=== PATIENT | female | born 1955 | race Caucasian/White ===

== ENCOUNTER → 2018-09-19 | Outpatient (CLI) | payer MEDICARE ==
--- NOTE | 2018-09-20 12:03 | MM ---
Reason for exam: screening (asymptomatic). Last mammogram was performed 2 years and 6 months ago. History: Patient history of other cancer. Benign excisional biopsy of the left breast, 1993. Benign excisional biopsy of the left breast, 1989. Physical Findings: A clinical breast exam by your physician is recommended on an annual basis and results should be correlated with mammographic findings. MG 3D Screening Mammo W/Cad Bilateral CC and MLO view(s) were taken. Prior study comparison: March 30, 2016, bilateral MG 3d diag mammo w/cad PATRICIA. November 30, 2012, mammogram, performed at [facility]. There are scattered fibroglandular densities. There are benign appearing round linear calcifications bilaterally. There is chronic nodularity bilaterally. There is no discrete abnormality. ASSESSMENT: Incomplete: need additional imaging evaluation, BI-RAD 0 RECOMMENDATION: Ultrasound of both breasts. (targeted any non-skin lumps palpated by patient) [facility] will attempt to contact patient to return for ultrasound.
== END | disposition home or self-care (01) ==
LOC: RADMAMWWP 16:12
PROVIDERS: ATTEND Internal Medicine
DX: Z12.31 Encounter for screening mammogram for malignant neoplasm of breast (principal)
CPT/HCPCS: 77063; 77067

== ENCOUNTER → 2018-10-24 | Outpatient (CLI) | payer MEDICARE ==
--- NOTE | 2018-10-29 08:01 | USB ---
Reason for exam: additional evaluation requested from abnormal screening. History: Patient history of other cancer. Benign excisional biopsy of the left breast, 1993. Benign excisional biopsy of the left breast, 1989. Indicated problem(s): palpable abnormality in both breasts. Physical Findings: Nurse Summary: Multiple areas of palpable lesions felt, and BB's placed. US Breast Workup Limited PATRICIA Bilateral complete breast ultrasound includes all four quadrants, the retroareolar region and axilla. Finding demonstrates on the right breast all at the BB sites, a 0.7 x 0.8 x 0.3 cm oval solid hyperechoic lesion at 1 o'clock, a 1.2 x 1.0 x 0.4 cm oval solid hyperechoic lesion at 10 o'clock, a 1.2 x 1.0 x 0.6 cm oval solid hyperechoic lesion at 10 o'clock, and a 3.5 x 3.6 x 1.1 cm cluster oval solid hyperechoic lesion at 11 o'clock. On the left breast all at the BB sites, a 1.4 x 1.2 x 0.7 cm oval solid hyperechoic lesion at 12 o'clock, a 0.6 x 1.4 x 0.3 cm oval solid hyperechoic lesion at 9 o'clock and a 1.6 x 1.7 x 0.6 cm oval solid hyperechoic lesion at 10 o'clock. These results were verbally communicated with the patient and result sheet given to the patient on 10/24/18. ASSESSMENT: Benign, BI-RAD 2 RECOMMENDATION: Clinical management. Routine screening mammogram of both breasts in 1 year.
== END | disposition home or self-care (01) ==
LOC: RADUSWWP 15:40
PROVIDERS: ATTEND Internal Medicine
DX: R92.8 Other abnormal and inconclusive findings on diagnostic imaging of breast (principal)

== ENCOUNTER 2022-10-06 17:43 | Inpatient (IN) | payer MEDICARE ==
[2022-10-06 18:39] LABS: Basophils # (A) 0.1 k/uL (0-0.2); Basophils % (A) 1 %; Eosinophils # (A) 0.2 k/uL (0-0.7); Eosinophils % (A) 2 %; HCT 36.7 % (34.0-46.0); Hypochromasia Slight; Lymphocytes # (A) 1.1 k/uL (1.0-4.8); Lymphocytes % (A) 14 %; MCHC 32.9 g/dL (31.0-37.0); MCV 94.3 fL (80.0-100.0); Mean Platelet Volume 9.6; Monocytes # (A) 0.3 k/uL (0-1.0); Monocytes % (A) 4 %; Neutrophils # (A) 6.2 k/uL (1.3-7.7); Neutrophils % (A) 79 %; Platelet Count 150 k/uL (150-450); RBC 3.89 m/uL (3.80-5.40); RDW 14.1 % (11.5-15.5); WBC 7.8 k/uL (3.8-10.6)
[2022-10-06 18:47] LABS: ALT 17 U/L (4-34); AST 28 U/L (14-36); African American GFR (CKD) >90 (>60 ml/min/1.73 sqM); Albumin 3.8 g/dL (3.5-5.0); Alkaline Phosphatase 98 U/L (38-126); Anion Gap 6 mmol/L; Blood Urea Nitrogen 18 mg/dL (7-17); Calcium 9.3 mg/dL (8.4-10.2); Carbon Dioxide 33 mmol/L (22-30); Chloride 100 mmol/L (98-107); Glucose 265 mg/dL (74-99); Magnesium 1.3 mg/dL (1.6-2.3); Non-African American GFR(CKD) >90 (>60 ml/min/1.73 sqM); Potassium 5.3 mmol/L (3.5-5.1); Sodium 139 mmol/L (137-145); Total Bilirubin 0.3 mg/dL (0.2-1.3); Total Protein 7.3 g/dL (6.3-8.2)
[2022-10-06 19:17] LABS: Appearance,Urine Cloudy (Clear); Bacteria,Urine Moderate /hpf; Bilirubin,Urine Negative (Negative); Blood,Urine Negative (Negative); Color,Urine Light Yellow; Glucose,Urine (UA) 3+ (Negative); Ketones,Urine Negative (Negative); Leukocyte Esterase,Urine Negative (Negative); Mucus,Urine Rare /hpf; Nitrite,Urine Negative (Negative); PH, Urine 7.5 (5.0-8.0); Protein,Urine Negative (Negative); RBC,Urine 3 /hpf (0-5); Specific Gravity,Urine 1.013 (1.001-1.035); Squamous Epithelial Cell,Urine 4 /hpf (0-4); Urobilinogen,Urine <2.0 mg/dL (<2.0); WBC,Urine 5 /hpf (0-5)
--- NOTE | 2022-10-06 20:11 | XR ---
EXAMINATION TYPE: XR chest 2V DATE OF EXAM: 10/06/2022 COMPARISON: CTA chest 2016 HISTORY: Shortness of breath and chest pain. TECHNIQUE: Frontal and lateral views of the chest are obtained. FINDINGS: There is cardiomegaly with central vascular congestion. There is metallic stent graft in the aortic root now present. No pleural effusion or pneumothorax identified bilaterally The osseous s tructures are intact. IMPRESSION: Findings consistent with CHF exacerbation noted as detailed above.
[2022-10-06] MEDS ORDERED: FUROSEMIDE 10 MG/ML 4 ML VIAL IV STA (20:35)
[2022-10-06] MEDS ORDERED: NALOXONE 0.4 MG/ML 1 ML VIAL IV PRN (22:59)
--- NOTE | 2022-10-06 23:08 | ED ---
General Adult HPI - General Chief complaint: Arrhythmia/Palpitations Stated complaint: bradycardia Time Seen by Provider: 10/06/22 17:51 Source: patient Mode of arrival: EMS Limitations: no limitations - History of Present Illness Initial comments: This is a 67-year-old female who presents emergency department for an episode of low heart rate. The patient stated that she also had some shortness of breath associated with this and became nervous so she called EMS. The patient stated that she was recently in the hospital for carotid surgery as well as replacement of aortic valve. The patient stated this was done at an outside facility and has had issues ever since. The patient stated that this is the first time she experienced a low heart rate so she wanted evaluated in the emergency department. The patient denied any current symptoms including any weakness, lightheadedness or dizziness. The patient denied any nausea and vomiting. The patient was resting in bed comfortably without any acute distress. - Related Data Home Medications Medication Instructions Recorded Confirmed Levocetirizine Dihydrochloride 5 mg PO HS 05/21/15 10/06/22 [Xyzal] Aspirin [Adult Low Dose Aspirin EC] 81 mg PO DAILY 05/09/19 10/06/22 Chlorzoxazone [Parafon Forte DSC] 500 mg PO TID PRN 05/09/19 10/06/22 Furosemide [Lasix] 40 mg PO BID PRN 05/09/19 10/06/22 Lansoprazole 30 mg PO BID 05/09/19 10/06/22 Latanoprost [Xalatan 0.005%] 1 drop BOTH EYES HS 05/09/19 10/06/22 Simvastatin [Zocor] 40 mg PO DAILY 05/09/19 10/06/22 Clopidogrel [Plavix] 75 mg PO DAILY 10/06/22 10/06/22 Dicyclomine HCl 10 mg PO QID 10/06/22 10/06/22 Diphenoxylate HCl/Atropine 1 tab PO QID PRN 10/06/22 10/06/22 [Lomotil 2.5-0.025 mg Tablet] Estradiol Cream [Estrace Cream 1 gm VAGINAL MOWEFR 10/06/22 10/06/22 0.01%] HYDROcodone/APAP 10-325MG [[place] 1 tab PO Q6H PRN 10/06/22 10/06/22 10-325] Hydrocortisone Oint 1 applic TOPICAL BID PRN 10/06/22 10/06/22 [Hydrocortisone 2.5% Oint] Insulin Lispro Protamin/Lispro See Protocol SQ AC-TID 10/06/22 10/06/22 [humaLOG Mix 75-25 Kwikpen] Magnesium Oxide [Magox 400] 400 mg PO TID 10/06/22 10/06/22 Metoprolol Succinate (ER) [Toprol 25 mg PO BID 10/06/22 10/06/22 Xl] Multivitamins, Thera [Multivitamin 1 tab PO DAILY 10/06/22 10/06/22 (formulary)] Nystatin-Triamcinolone Oint 1 applic TOPICAL BID PRN 10/06/22 10/06/22 [Mycolog 100,000-0.1 Unit/gm-% Oint] Pioglitazone [Actos] 45 mg PO DAILY 10/06/22 10/06/22 SILVER sulfADIAZINE Cream 1 applic TOPICAL BID PRN 10/06/22 10/06/22 [Silvadene 1% Cream] Triamcinolone 0.1% Ointment 1 applic TOPICAL BID PRN 10/06/22 10/06/22 [Kenalog 0.1% Ointment] diazePAM [Valium] 2 mg PO DAILY 10/06/22 10/06/22 Allergies Allergy/AdvReac Type Severity Reaction Status Date / Time metolazone [From Zaroxolyn] AdvReac Rapid Verified 05/09/19 13:58 Heart Rate morphine AdvReac Nausea, Verified 05/09/19 13:58 headache nalbuphine HCl [From Nubain] AdvReac Rapid Verified 05/09/19 13:58 Heart Rate Penicillins AdvReac Unknown Verified 10/06/22 18:01 Review of Systems ROS Statement: Those systems with pertinent positive or pertinent negative responses have been documented in the HPI. ROS Other: All systems not noted in ROS Statement are negative. Past Medical History Past Medical History: Asthma, Cancer, COPD, Diabetes Mellitus, Eye Disorder, Fibromyalgia, GERD/Reflux, Hyperlipidemia, Hypertension, Musculoskeletal Disorder, Osteoarthritis (OA), Respiratory Disorder, Sleep Apnea/CPAP/BIPAP Additional Past Medical History / Comment(s): CTS-BILAT WRISTS. HX CERVICAL CA- 1986. SARCOIDOSIS. DJD. GLAUCOMA& CATARACTS BILAT EYES. GOUT. HIATAL HERNIA. INCONTIENT OF URINE R/T LIMITED MOBILITY. USES C-PAP BUT CURRENTLY NEEDS A NEW ONE. STATES HAS VERY SMALL AIRWAY. USES CANE FOR AMBULATION AT THIS TIME History of Any Multi-Drug Resistant Organisms: None Reported Past Surgical History: Breast Surgery, Hysterectomy Additional Past Surgical History / Comment(s): COLONOSCOPYEGDBRONCHOSCOPY W/BRONCHIAL WASHNUMEROUS CYTS REMOVED FROM SCALP X 2LT BREAST BX x 2, 06-24-15 total lt hip Past Anesthesia/Blood Transfusion Reactions: No Reported Reaction Past Psychological History: Anxiety, Depression, PTSD Smoking Status: Never smoker Past Alcohol Use History: None Reported Past Drug Use History: None Reported - Past Family History Mother Family Medical History: Deep Vein Thrombosis (DVT) Father History Unknown: Yes General Exam Limitations: no limitations General appearance: alert, in no apparent distress, obese Head exam: Present: atraumatic, normocephalic, normal inspection Eye exam: Present: normal appearance, PERRL Pupils: Present: normal accommodation ENT exam: Present: normal exam, normal oropharynx, mucous membranes moist Neck exam: Present: normal inspection, full ROM Respiratory exam: Present: normal lung sounds bilaterally Cardiovascular Exam: Present: regular rate, normal rhythm, normal heart sounds GI/Abdominal exam: Present: soft, normal bowel sounds Extremities exam: Present: normal inspection, full ROM, normal capillary refill, pedal edema Back exam: Present: normal inspection, full ROM Neurological exam: Present: alert, oriented X3, CN II-XII intact Psychiatric exam: Present: normal affect, normal mood Skin exam: Present: warm, dry Course Vital Signs 10/06/22 10/06/22 10/06/22 17:51 20:58 22:13 Temperature 98.6 F Pulse Rate 92 57 L 76 Respiratory 22 16 14 Rate Blood Pressure 154/72 128/67 125/70 O2 Sat by Pulse 93 L 98 96 Oximetry EKG Findings - EKG Comments: EKG Findings:: EKG was obtained and was interpreted by myself. EKG showed a rate of 82, QRS duration of 164, QTC of 472. This EKG showed a possible second- degree AV block however only had to drop beats on a rhythm strip. There is no ST segment elevations or depressions noted. Medical Decision Making - Medical Decision Making Was pt. sent in by a medical professional or institution (HANNA Elizabeth, TANK HOUSE OPERATOR, urgent care, hospital, or intermediate...) When possible be specific @ -No Did you speak to anyone other than the patient for history (EMS, parent, family, police, friend...)? What history was obtained from this source @ -No Did you review nursing and triage notes (agree or disagree)? Why? @ -I reviewed and agree with nursing and triage notes Were old charts reviewed (outside hosp., previous admission, EMS record, old EKG, old radiological studies, urgent care reports/EKG's, intermediate records)? Report findings @ -No old charts were reviewed Differential Diagnosis (chest pain, altered mental status, abdominal pain women, abdominal pain men, vaginal bleeding, weakness, fever, dyspnea, syncope, headache, dizziness, GI bleed, back pain, seizure, CVA, palpatations, mental health)? @ -COPD exacerbation, CHF exacerbation, ACS EKG interpreted by me (3pts min.). @ -As above X-rays interpreted by me (1pt min.). @ -Chest x-ray was obtained and was interpreted by the radiologist as I could not see images secondary to a technical problem. Chest x-ray was read as CHF exacerbation CT interpreted by me (1pt min.). @ -None done U/S interpreted by me (1pt. min.). @ -None done What testing was considered but not performed or refused? (CT, X-rays, U/S, labs)? Why? @ -None What meds were considered but not given or refused? Why? @ -None Did you discuss the management of the patient with other professionals (professionals i.e. HANNA Elizabeth, TANK HOUSE OPERATOR, lab, RT, psych nurse, social and human services assistant, alpine guide, teacher, landcare officer, high risk case manager)? Give summary @ -Yes, the admitting physician, Dr. Lam Was smoking cessation discussed for >3mins.? @ -No Was critical care preformed (if so, how long)? @ -No Were there social determinants of health that impacted care today? How? (Homelessness, low income, unemployed, alcoholism, drug addiction, transportation, low edu. Level, literacy, decrease access to med. care, long term, rehab)? @ -No Was there de-escalation of care discussed even if they declined (Discuss DNR or withdrawal of care, Hospice)? DNR status @ -No What co-morbidities impacted this encounter? (DM, HTN, Smoking, COPD, CAD, Cancer, CVA, ARF, Chemo, Hep., AIDS, mental health diagnosis, sleep apnea, morbid obesity)? @ -COPD, CHF, recent aortic valve replacement Was patient admitted / discharged? Hospital course, mention meds given and rout e, prescriptions, significant lab abnormalities, going to OR and other pertinent info. @ -The patient was seen and evaluated emergency department. Physical exam, the patient was resting in bed comfortably. Vital signs were stable. The patient's laboratory workup showed a mild CHF exacerbation and was confirmed with the chest x-ray. EKG showed a possible second-degree heart block however there was only to drop beats and did not show any bradycardia. Due to the patient's CHF exacerbation in the setting of a significant past medical history and possible heart block, the patient will be placed in observation to be seen by cardiology in the morning. The patient's accepting physician, Dr. Lam, was contacted and accepted at 2054. The patient was agreeable to this and was placed observation in stable condition. Undiagnosed new problem with uncertain prognosis? @ -No Drug Therapy requiring intensive monitoring for toxicity (Heparin, Nitro, Insulin, Cardizem)? @ -No Were any procedures done? @ -No Diagnosis/symptom? @ -CHF exacerbation Acute, or Chronic, or Acute on Chronic? @ -Acute Uncomplicated (without systemic symptoms) or Complicated (systemic symptoms)? @ -Complicated Side effects of treatment? @ -No Exacerbation, Progression, or Severe Exacerbation? @ -Exacerbation Poses a threat to life or bodily function? How? (Chest pain, [place], NM, pneumonia, PE, COPD, DKA, ARF, appy, cholecystitis, CVA, Diverticulitis, Homicidal, Suicidal, threat to staff... and all critical care pts) @ -No - Lab Data Result diagrams: 10/06/22 18:17 10/06/22 18:17 Lab Results 10/06/22 10/06/22 10/06/22 Range/Units 18:17 18:17 18:17 WBC 7.8 (3.8-10.6) k/uL RBC 3.89 (3.80-5.40) m/uL Hgb 12.0 (11.4-16.0) gm/dL Hct 36.7 (34.0-46.0) % MCV 94.3 (80.0-100.0) fL MCH 31.0 (25.0-35.0) pg MCHC 32.9 (31.0-37.0) g/dL RDW 14.1 (11.5-15.5) % Plt Count 150 (150-450) k/uL MPV 9.6 Neutrophils % 79 % Lymphocytes % 14 % Monocytes % 4 % Eosinophils % 2 % Basophils % 1 % Neutrophils # 6.2 (1.3-7.7) k/uL Lymphocytes # 1.1 (1.0-4.8) k/uL Monocytes # 0.3 (0-1.0) k/uL Eosinophils # 0.2 (0-0.7) k/uL Basophils # 0.1 (0-0.2) k/uL Hypochromasia Slight Sodium 139 (137-145) mmol/L Potassium 5.3 H (3.5-5.1) mmol/L Chloride 100 (98-107) mmol/L Carbon Dioxide 33 H (22-30) mmol/L Anion Gap 6 mmol/L BUN 18 H (7-17) mg/dL Creatinine 0.60 (0.52-1.04) mg/dL Est GFR (CKD-EPI)AfAm >90 (>60 ml/min/1.73 sqM) Est GFR (CKD-EPI)NonAf >90 (>60 ml/min/1.73 sqM) Glucose 265 H (74-99) mg/dL Calcium 9.3 (8.4-10.2) mg/dL Magnesium 1.3 L (1.6-2.3) mg/dL Total Bilirubin 0.3 (0.2-1.3) mg/dL AST 28 (14-36) U/L ALT 17 (4-34) U/L Alkaline Phosphatase 98 (38-126) U/L Troponin I (0.000-0.034) ng/mL NT-Pro-B Natriuret Pep pg/mL Total Protein 7.3 (6.3-8.2) g/dL Albumin 3.8 (3.5-5.0) g/dL Urine Color Light Yellow Urine Appearance Cloudy H (Clear) Urine pH 7.5 (5.0-8.0) Ur Specific [place] 1.013 (1.001-1.035) Urine Protein Negative (Negative) Urine Glucose (UA) 3+ H (Negative) Urine Ketones Negative (Negative) Urine Blood Negative (Negative) Urine Nitrite Negative (Negative) Urine Bilirubin Negative (Negative) Urine Urobilinogen <2.0 (<2.0) mg/dL Ur Leukocyte Esterase Negative (Negative) Urine RBC 3 (0-5) /hpf Urine WBC 5 (0-5) /hpf Ur Squamous Epith Cells 4 (0-4) /hpf Urine Bacteria Moderate H (None) /hpf Urine Mucus Rare H (None) /hpf 10/06/22 10/06/22 Range/Units 18:17 18:17 WBC (3.8-10.6) k/uL RBC (3.80-5.40) m/uL Hgb (11.4-16.0) gm/dL Hct (34.0-46.0) % MCV (80.0-100.0) fL MCH (25.0-35.0) pg MCHC (31.0-37.0) g/dL RDW (11.5-15.5) % Plt Count (150-450) k/uL MPV Neutrophils % % Lymphocytes % % Monocytes % % Eosinophils % % Basophils % % Neutrophils # (1.3-7.7) k/uL Lymphocytes # (1.0-4.8) k/uL Monocytes # (0-1.0) k/uL Eosinophils # (0-0.7) k/uL Basophils # (0-0.2) k/uL Hypochromasia Sodium (137-145) mmol/L Potassium (3.5-5.1) mmol/L Chloride (98-107) mmol/L Carbon Dioxide (22-30) mmol/L Anion Gap mmol/L BUN (7-17) mg/dL Creatinine (0.52-1.04) mg/dL Est GFR (CKD-EPI)AfAm (>60 ml/min/1.73 sqM) Est GFR (CKD-EPI)NonAf (>60 ml/min/1.73 sqM) Glucose (74-99) mg/dL Calcium (8.4-10.2) mg/dL Magnesium (1.6-2.3) mg/dL Total Bilirubin (0.2-1.3) mg/dL AST (14-36) U/L ALT (4-34) U/L Alkaline Phosphatase (38-126) U/L Troponin I <0.012 (0.000-0.034) ng/mL NT-Pro-B Natriuret Pep 476 pg/mL Total Protein (6.3-8.2) g/dL Albumin (3.5-5.0) g/dL Urine Color Urine Appearance (Clear) Urine pH (5.0-8.0) Ur Specific [place] (1.001-1.035) Urine Protein (Negative) Urine Glucose (UA) (Negative) Urine Ketones (Negative) Urine Blood (Negative) Urine Nitrite (Negative) Urine Bilirubin (Negative) Urine Urobilinogen (<2.0) mg/dL Ur Leukocyte Esterase (Negative) Urine RBC (0-5) /hpf Urine WBC (0-5) /hpf Ur Squamous Epith Cells (0-4) /hpf Urine Bacteria (None) /hpf Urine Mucus (None) /hpf Disposition Clinical Impression: Congestive heart failure, Shortness of breath Disposition: ADMITTED IP TO [facility] Condition: Stable Is patient prescribed a controlled substance at d/c from ED?: No Referrals: Celia Stahl DO [Primary Care Provider] - 1-2 days Time of Disposition: 20:55 Decision to Admit Reason: Admit from EC Decision Date: 10/06/22 Decision Time: 20:55
--- NOTE | 2022-10-07 04:03 | P.HPIM ---
History of Present Illness H&P Date: 10/06/22 The patient is a 67-year-old female with a PMH of type II DM, hypertension, hyperlipidemia, coronary artery disease status post stents, status post aortic valve replacement who presents to the emergency room with complaints of leg swelling, bradycardia, shortness of breath, and fatigue. The patient reports that she recently underwent aortic valve replacement as well as a carotid surgery at and that since then, she has been experiencing occasional dizziness with bradycardia. She reports gradually worsening lower extremity swelling over the past week. Denied chest discomfort, nausea, vomiting. The patient also endorsed vaginal drainage and erythema. Denied dysuria or history of STI's. Upon presentation at the emergency room, the patient SpO2 is 93% on room air. EKG had revealed sinus rhythm with second-degree AV block at 82 bpm with left axis deviation and left bundle branch block as reviewed by me (left bundle branch block and AV block new from prior EKG from 2014). Chest x-ray in the emergency room was consistent with congestive heart failure. Laboratory ev aluation was remarkable for troponin less than 0.012, proBNP 476, magnesium 1.3, glucose 265, calcium 5.3. Review of systems: Pertinent positives and negatives as discussed in HPI, a complete review of systems was performed and all other systems are negative. Physical examination: General: non toxic, no distress, appears at stated age, morbidly obese Derm: no unusual rashes/lesions, warm Head: atraumatic, normocephalic, symmetric Eyes: EOMI, no lid lag, anicteric sclera, pupils equal round reactive to light ENT: Nose and ears atraumatic Neck: No cervical lymphadenopathy, trachea midline, supple Mouth: no lip lesion, mucus membranes moist Cardiovascular: S1S2 reg, no murmur, positive dorsalis pedis pulse bilateral, 2+ bilateral lower extremity pitting edema Lungs: Bibasilar rales without rhonchi or wheezing, no accessory muscle use Abdominal: soft, nontender to palpation, no guarding Ext: muscle strength 3 out of 5 in all 4 extremities grossly, no gross muscle atrophy, no contractures, chronic venous stasis changes noted Neuro: CN II-XI grossly intact, no gross focal neuro deficits Psych: Alert, oriented, appropriate affect Assessment/plan Acute CHF exacerbation -Lasix 40 mg IV every 12 hours -Cardiology consult -Cardiac monitoring -Intake and output -Daily weights -Monitor electrolytes Second-degree heart block with bradycardia and left bundle branch block -Patient recently underwent aortic valve replacement and a carotid surgery at -Obtain records in a.m. 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 Chronic conditions: Type II DM, hypertension, hyperkalemia, CAD -Continue with home meds -Insulin sliding scale and blood glucose monitoring DVT prophylaxis -Heparin subq The patient is admitted with an anticipated than 2 midnight stay for evaluation of CHF exacerbation CODE STATUS: Full Code Discussed with: Patient Anticipated discharge date: in am Anticipated discharge place: Home Past Medical History Past Medical History: Asthma, Cancer, COPD, Diabetes Mellitus, Eye Disorder, Fibromyalgia, GERD/Reflux, Hyperlipidemia, Hypertension, Musculoskeletal Disorder, Osteoarthritis (OA), Respiratory Disorder, Sleep Apnea/CPAP/BIPAP Additional Past Medical History / Comment(s): CTS-BILAT WRISTS. HX CERVICAL CA- 1986. SARCOIDOSIS. DJD. GLAUCOMA& CATARACTS BILAT EYES. GOUT. HIATAL HERNIA. INCONTIENT OF URINE R/T LIMITED MOBILITY. USES C-PAP BUT CURRENTLY NEEDS A NEW ONE. STATES HAS VERY SMALL AIRWAY. USES CANE FOR AMBULATION AT THIS TIME History of Any Multi-Drug Resistant Organisms: None Reported Past Surgical History: Breast Surgery, Hysterectomy Additional Past Surgical History / Comment(s): COLONOSCOPYEGDBRONCHOSCOPY W/BRONCHIAL WASHNUMEROUS CYTS REMOVED FROM SCALP X 2LT BREAST BX x 2, 9-22-15 total lt hip Past Anesthesia/Blood Transfusion Reactions: No Reported Reaction Past Psychological History: Anxiety, Depression, PTSD Smoking Status: Never smoker Past Alcohol Use History: None Reported Past Drug Use History: None Reported - Past Family History Mother Family Medical History: Deep Vein Thrombosis (DVT) Father History Unknown: Yes Family Medical History: Coronary Artery Disease (CAD) Medications and Allergies Home Medications Medication Instructions Recorded Confirmed Type Levocetirizine Dihydrochloride 5 mg PO HS 05/21/15 10/06/22 History [Xyzal] Aspirin [Adult Low Dose Aspirin EC] 81 mg PO DAILY 05/09/19 10/06/22 History Chlorzoxazone [Parafon Forte DSC] 500 mg PO TID PRN 05/09/19 10/06/22 History Furosemide [Lasix] 40 mg PO BID PRN 05/09/19 10/06/22 History Lansoprazole 30 mg PO BID 05/09/19 10/06/22 History Latanoprost [Xalatan 0.005%] 1 drop BOTH EYES HS 05/09/19 10/06/22 History Simvastatin [Zocor] 40 mg PO DAILY 05/09/19 10/06/22 History Clopidogrel [Plavix] 75 mg PO DAILY 10/06/22 10/06/22 History Dicyclomine HCl 10 mg PO QID 10/06/22 10/06/22 History Diphenoxylate HCl/Atropine 1 tab PO QID PRN 10/06/22 10/06/22 History [Lomotil 2.5-0.025 mg Tablet] Estradiol Cream [Estrace Cream 1 gm VAGINAL MOWEFR 10/06/22 10/06/22 History 0.01%] HYDROcodone/APAP 10-325MG [[place] 1 tab PO Q6H PRN 10/06/22 10/06/22 History 10-325] Hydrocortisone Oint 1 applic TOPICAL BID PRN 10/06/22 10/06/22 History [Hydrocortisone 2.5% Oint] Insulin Lispro Protamin/Lispro See Protocol SQ AC-TID 10/06/22 10/06/22 History [humaLOG Mix 75-25 Kwikpen] Magnesium Oxide [Magox 400] 400 mg PO TID 10/06/22 10/06/22 History Metoprolol Succinate (ER) [Toprol 25 mg PO BID 10/06/22 10/06/22 History Xl] Multivitamins, Thera [Multivitamin 1 tab PO DAILY 10/06/22 10/06/22 History (formulary)] Nystatin-Triamcinolone Oint 1 applic TOPICAL BID PRN 10/06/22 10/06/22 History [Mycolog 100,000-0.1 Unit/gm-% Oint] Pioglitazone [Actos] 45 mg PO DAILY 10/06/22 10/06/22 History SILVER sulfADIAZINE Cream 1 applic TOPICAL BID PRN 10/06/22 10/06/22 History [Silvadene 1% Cream] Triamcinolone 0.1% Ointment 1 applic TOPICAL BID PRN 01/04/23 01/04/23 History [Kenalog 0.1% Ointment] diazePAM [Valium] 2 mg PO DAILY 10/06/22 10/06/22 History Allergies Allergy/AdvReac Type Severity Reaction Status Date / Time metolazone [From Zaroxolyn] AdvReac Rapid Verified 05/09/19 13:58 Heart Rate morphine AdvReac Nausea, Verified 05/09/19 13:58 headache nalbuphine HCl [From Nubain] AdvReac Rapid Verified 05/09/19 13:58 Heart Rate Penicillins AdvReac Unknown Verified 10/06/22 18:01 Physical Exam Vitals: Vital Signs Temp Pulse Resp BP Pulse Ox 10/06/22 22:13 76 14 125/70 96 10/06/22 20:58 98.6 F 57 L 16 128/67 98 10/06/22 17:51 92 22 154/72 93 L Intake and Output 10/06/22 10/06/22 10/07/22 14:59 22:59 06:59 Other: Weight 145.15 kg Results CBC & Chem 7: 10/06/22 18:17 10/06/22 18:17 Labs: Abnormal Lab Results - Last 24 Hours (Table) 10/06/22 10/06/22 Range/Units 18:17 18:17 Potassium 5.3 H (3.5-5.1) mmol/L Carbon Dioxide 33 H (22-30) mmol/L BUN 18 H (7-17) mg/dL Glucose 265 H (74-99) mg/dL Magnesium 1.3 L (1.6-2.3) mg/dL Urine Appearance Cloudy H (Clear) Urine Glucose (UA) 3+ H (Negative) Urine Bacteria Moderate H (None) /hpf Urine Mucus Rare H (None) /hpf
[2022-10-07] MEDS ORDERED: SODIUM POLYSTYRENE SULFONATE 15 GM/60 ML BOTTLE PO ONE (04:15)
[2022-10-07] MEDS ORDERED: CALCIUM GLUCONATE IN NACL 1 GM in SALINE 1 100ML.BAG IVPB ONE (04:15)
[2022-10-07] MEDS: HYDROcodone/APAP 10-325MG 1 EACH TAB PO PRN ×3 (04:58→19:28)
[2022-10-07] MEDS: MAGNESIUM SULFATE-D5W PMX 1 GM in DEXTROSE/WATER 1 100ML.BAG IVPB SCH (06:20)
[2022-10-07 10:03] LABS: African American GFR (CKD) 87.2 (60.0-200.0); Anion Gap 13.1 mmol/L (10.00-18.00); BUN/Creat Ratio 18.88 Ratio (12.00-20.00); Blood Urea Nitrogen 15.1 mg/dL (9.0-27.0); Carbon Dioxide 27.9 mmol/L (20.0-27.5); Magnesium 1.3 mg/dL (1.5-2.4); Non-African American GFR(CKD) 75.2 (60.0-200.0); Potassium 3.9 mmol/L (3.5-5.5)
[2022-10-07] MEDS: INSULIN ASPART (NovoLOG) 100 UNIT/ML VIAL SQ SCH ×4 (10:42→19:27)
[2022-10-07] MEDS: HEPARIN SODIUM,PORCINE/PF 5,000 UNIT/0.5 ML SYRINGE SQ SCH ×3 (10:54→21:56)
[2022-10-07] MEDS: ATORVASTATIN 20 MG TAB PO SCH (10:55)
[2022-10-07] MEDS: ASPIRIN 81 MG PO SCH (10:55)
[2022-10-07] MEDS: FUROSEMIDE 10 MG/ML 4 ML VIAL IV SCH ×3 (10:57→19:06)
[2022-10-07] MEDS: MAGNESIUM OXIDE 400 MG TAB PO SCH ×3 (10:57→19:27)
[2022-10-07] MEDS: METOPROLOL SUCCINATE (ER) 25 MG TAB.ER.24H PO SCH ×2 (10:57→19:28)
[2022-10-07] MEDS: CLOPIDOGREL 75 MG TAB PO SCH (10:57)
[2022-10-07] MEDS: MULTIVITAMINS, THERA 1 EACH TAB PO SCH (10:58)
--- NOTE | 2022-10-07 11:12 | P.CRDCN ---
History of Present Illness Consult date: 10/07/22 History of present illness: HISTORY OF PRESENT ILLNESS: This is a 67-year-old female with a past medical history significant for hyperlipidemia, congestive heart failure, cervical cancer, sarcoidosis of the lung, coronary artery disease with recent stenting in June 2022 and subsequent aortic valve replacement at [facility]. Patient follows with a outsole cutter machine at [facility] but is unsure of the name. We have been asked to see the patient in consultation for congestive heart failure. Patient examined at the bedside. Patient states that she has had chronic SOB which has been improving since her aortic valve replacement at the end of last year. She states yesterday she was walking around her house with a pulse ox on her finger and her heart rate was reading in the 30s. She states she could not get her heart rate to go up. She reports having numbness in her bilateral lower extremities yesterday as well. She denied any chest pain or pressure. Denies dizziness or lightheadedness. She states that her thought she looked pale as well so they came to the hospital for further evaluation. * EKG reveals sinus mechanism with 2nd degree AV block * Chest xray findings consistent with CHF exacerbation * Laboratory data: WBC 7.8. Hemoglobin 12.0. Platelet count 150. Sodium 138. Potassium 3.9. BUN 15. Creatinine 0.80. Magnesium 1.3. ProBNP 476. Troponin negative 1. * Current home cardiac medications include Plavix 75 mg daily, metoprolol succinate 25 mg twice a day, Zocor 40 mg daily, aspirin 81 mg daily, Lasix 40 mg twice a day REVIEW OF SYSTEMS: At the time of my exam: CONSTITUTIONAL: Denies fever or chills. HEENT: Denies blurred vision, vision changes, or eye pain. Denies hemoptysis CARDIOVASCULAR: Denies chest pain. Denies orthopnea. Denies PND. Denies palpitations RESPIRATORY: Denies shortness of breath. GASTROINTESTINAL: Denies abdominal pain. Denies nausea or vomiting. HEMATOLOGIC: Denies bleeding disorders. GENITOURINARY: Denies any blood in urine. SKIN: Denies pruitis. Denies rash. PHYSICAL EXAM: VITAL SIGNS: Reviewed. GENERAL: Well-developed in no acute distress. HEENT: Head is normocephalic. Pupils are equal, round. Sclerae anicteric. Mucous membranes of the mouth are moist. Neck supple. No JVD or thyromegaly LUNGS: Respirations even and unlabored. Lungs essentially clear to auscultation bilaterally, diminished. HEART: Regular rate and rhythm. S1 and S2 heard. ABDOMEN: Soft. Nondistended. Nontender. EXTREMITIES: Normal range of motion. No clubbing or cyanosis. Peripheral pulses intact. 1-2+ bilateral lower extremity edema NEUROLOGIC: Awake and alert. Oriented x 3. ASSESSMENT: Shortness of breath Acute on chronic heart failure, type unknown, echo pending Questionable bradycardia at home Second degree AV block Coronary artery disease with PCI, june 2022 at [facility] [place] Aortic valve replacement, 2021 at [facility] Hyperlipidemia History of cervical cancer History of sarcoidosis of the lung PLAN: Resume home cardiac medications Begin telemetry monitoring Obtain 2-D echo to assess cardiac structure and function Continue IV Lasix Daily weights, accurate I&O, and monitoring of kidney function Further recommendations pending patient course Nurse practitioner note has been reviewed by physician. Signing provider agrees with the documented findings, assessment, and plan of care. Past Medical History Past Medical History: Asthma, Cancer, COPD, Diabetes Mellitus, Eye Disorder, Fibromyalgia, GERD/Reflux, Hyperlipidemia, Hypertension, Musculoskeletal Disorder, Osteoarthritis (OA), Respiratory Disorder, Sleep Apnea/CPAP/BIPAP Additional Past Medical History / Comment(s): CTS-BILAT WRISTS. HX CERVICAL CA- 1986. SARCOIDOSIS. DJD. GLAUCOMA& CATARACTS BILAT EYES. GOUT. HIATAL HERNIA. INCONTIENT OF URINE R/T LIMITED MOBILITY. USES C-PAP BUT CURRENTLY NEEDS A NEW ONE. STATES HAS VERY SMALL AIRWAY. USES CANE FOR AMBULATION AT THIS TIME History of Any Multi-Drug Resistant Organisms: None Reported Past Surgical History: Breast Surgery, Hysterectomy Additional Past Surgical History / Comment(s): COLONOSCOPYEGDBRONCHOSCOPY W/BRONCHIAL WASHNUMEROUS CYTS REMOVED FROM SCALP X 2LT BREAST BX x 06-24-15 total lt hip Past Anesthesia/Blood Transfusion Reactions: No Reported Reaction Past Psychological History: Anxiety, Depression, PTSD Smoking Status: Never smoker Past Alcohol Use History: None Reported Past Drug Use History: None Reported - Past Family History Mother Family Medical History: Deep Vein Thrombosis (DVT) Father History Unknown: Yes Family Medical History: Coronary Artery Disease (CAD) Medications and Allergies Home Medications Medication Instructions Recorded Confirmed Type Levocetirizine Dihydrochloride 5 mg PO HS 05/21/15 10/06/22 History [Xyzal] Aspirin [Adult Low Dose Aspirin EC] 81 mg PO DAILY 05/09/19 10/06/22 History Chlorzoxazone [Parafon Forte DSC] 500 mg PO TID PRN 05/09/19 10/06/22 History Furosemide [Lasix] 40 mg PO BID PRN 05/09/19 10/06/22 History Lansoprazole 30 mg PO BID 05/09/19 10/06/22 History Latanoprost [Xalatan 0.005%] 1 drop BOTH EYES HS 05/09/19 10/06/22 History Simvastatin [Zocor] 40 mg PO DAILY 05/09/19 10/06/22 History Clopidogrel [Plavix] 75 mg PO DAILY 10/06/22 10/06/22 History Dicyclomine HCl 10 mg PO QID 10/06/22 10/06/22 History Diphenoxylate HCl/Atropine 1 tab PO QID PRN 10/06/22 10/06/22 History [Lomotil 2.5-0.025 mg Tablet] Estradiol Cream [Estrace Cream 1 gm VAGINAL MOWEFR 10/06/22 10/06/22 History 0.01%] HYDROcodone/APAP 10-325MG [[place] 1 tab PO Q6H PRN 10/06/22 10/06/22 History 10-325] Hydrocortisone Oint 1 applic TOPICAL BID PRN 10/06/22 10/06/22 History [Hydrocortisone 2.5% Oint] Insulin Lispro Protamin/Lispro See Protocol SQ AC-TID 10/06/22 10/06/22 History [humaLOG Mix 75-25 Kwikpen] Magnesium Oxide [Magox 400] 400 mg PO TID 10/06/22 10/06/22 History Metoprolol Succinate (ER) [Toprol 25 mg PO BID 10/06/22 10/06/22 History Xl] Multivitamins, Thera [Multivitamin 1 tab PO DAILY 10/06/22 10/06/22 History (formulary)] Nystatin-Triamcinolone Oint 1 applic TOPICAL BID PRN 10/06/22 10/06/22 History [Mycolog 100,000-0.1 Unit/gm-% Oint] Pioglitazone [Actos] 45 mg PO DAILY 10/06/22 10/06/22 History SILVER sulfADIAZINE Cream 1 applic TOPICAL BID PRN 10/06/22 10/06/22 History [Silvadene 1% Cream] Triamcinolone 0.1% Ointment 1 applic TOPICAL BID PRN 10/06/22 10/06/22 History [Kenalog 0.1% Ointment] diazePAM [Valium] 2 mg PO DAILY 10/06/22 10/06/22 History Allergies Allergy/AdvReac Type Severity Reaction Status Date / Time metolazone [From Zaroxolyn] AdvReac Rapid Verified 05/09/19 13:58 Heart Rate morphine AdvReac Nausea, Verified 05/09/19 13:58 headache nalbuphine HCl [From Nubain] AdvReac Rapid Verified 05/09/19 13:58 Heart Rate Penicillins AdvReac Unknown Verified 10/06/22 18:01 Physical Exam Vitals: Vital Signs Temp Pulse Resp BP Pulse Ox 10/07/22 05:37 82 16 124/78 98 10/07/22 04:40 84 101/55 95 10/07/22 04:30 81 131/52 96 10/07/22 04:20 80 131/52 79 L 10/07/22 04:10 80 131/52 91 L 10/07/22 04:00 80 131/52 94 L 10/07/22 03:50 81 131/52 10/07/22 03:40 101 H 131/52 10/07/22 03:30 78 131/52 10/07/22 03:20 77 131/52 10/07/22 03:10 75 131/52 10/07/22 03:00 77 131/52 93 L 10/07/22 02:50 81 131/52 95 10/07/22 02:40 79 131/52 95 10/07/22 02:30 78 131/52 90 L 10/07/22 02:20 75 131/52 91 L 10/07/22 02:10 77 131/52 10/07/22 02:00 76 131/52 93 L 10/07/22 01:50 78 131/52 92 L 10/07/22 01:40 78 131/52 94 L 10/07/22 01:30 82 131/52 94 L 10/07/22 01:20 79 131/52 96 10/07/22 01:10 80 131/52 94 L 10/07/22 01:00 78 131/52 95 10/07/22 00:50 80 131/52 96 10/07/22 00:40 80 125/70 95 10/07/22 00:30 125/70 91 L 10/07/22 00:20 78 125/70 93 L 10/07/22 00:13 78 125/70 92 L 10/07/22 00:10 77 125/70 95 10/07/22 00:00 73 125/70 93 L 10/06/22 23:50 73 125/70 94 L 10/06/22 23:40 91 125/70 10/06/22 23:30 91 125/70 10/06/22 23:20 77 125/70 97 10/06/22 23:10 74 125/70 95 10/06/22 23:00 32 L 125/70 95 10/06/22 22:50 80 125/70 93 L 10/06/22 22:40 77 125/70 92 L 10/06/22 22:30 72 125/70 94 L 10/06/22 22:20 75 125/70 95 10/06/22 22:13 76 14 125/70 96 10/06/22 20:58 98.6 F 57 L 16 128/67 98 10/06/22 17:51 92 22 154/72 93 L Intake and Output 10/06/22 10/07/22 10/07/22 22:59 06:59 14:59 Other: Weight 145.15 kg Results 10/06/22 18:17 10/07/22 05:46 Cardiac Enzymes 10/06/22 10/06/22 Range/Units 18:17 18:17 AST 28 (14-36) U/L Troponin I <0.012 (0.000-0.034) ng/mL CBC 10/06/22 Range/Units 18:17 WBC 7.8 (3.8-10.6) k/uL RBC 3.89 (3.80-5.40) m/uL Hgb 12.0 (11.4-16.0) gm/dL Hct 36.7 (34.0-46.0) % Plt Count 150 (150-450) k/uL Comprehensive Metabolic Panel 10/06/22 Range/Units 18:17 Sodium 139 (137-145) mmol/L Potassium 5.3 H (3.5-5.1) mmol/L Chloride 100 (98-107) mmol/L Carbon Dioxide 33 H (22-30) mmol/L BUN 18 H (7-17) mg/dL Creatinine 0.60 (0.52-1.04) mg/dL Glucose 265 H (74-99) mg/dL Calcium 9.3 (8.4-10.2) mg/dL AST 28 (14-36) U/L ALT 17 (4-34) U/L Alkaline Phosphatase 98 (38-126) U/L Total Protein 7.3 (6.3-8.2) g/dL Albumin 3.8 (3.5-5.0) g/dL Current Medications Generic Name Dose Route Start Last Admin Trade Name Freq PRN Reason Stop Dose Admin Hydrocodone Bitart/Acetaminophen 1 each 10/07/22 04:01 10/07/22 04:58 Hydrocodone/Apap 10-325mg 1 Each Tab PO 1 each Q6H PRN Administration Pain Aspirin 81 mg 10/07/22 09:00 Aspirin 81 Mg PO DAILY [facility] Atorvastatin Calcium 20 mg 10/07/22 09:00 Atorvastatin 20 Mg Tab PO DAILY [facility] Clopidogrel Bisulfate 75 mg 10/07/22 09:00 Clopidogrel 75 Mg Tab PO DAILY [facility] Furosemide 40 mg 10/07/22 09:00 Furosemide 10 Mg/Ml 4 Ml Vial IV Q12HR [facility] Heparin Sodium (Porcine) 5,000 unit 10/07/22 08:00 Heparin Sodium,Porcine/Pf 5,000 Unit/0.5 Ml Syringe SQ Q8HR [facility] Insulin Aspart 0 unit 10/07/22 07:30 Insulin Aspart (Novolog) 100 Unit/Ml Vial SQ ACHS [facility] Protocol Latanoprost 1 drops 10/07/22 21:00 Latanoprost 0.005% Ophth Drops 2.5 Ml Btl BOTH EYES HS [facility] Magnesium Oxide 400 mg 10/07/22 09:00 Magnesium Oxide 400 Mg Tab PO TID [facility] Metoprolol Succinate 25 mg 10/07/22 09:00 Metoprolol Succinate (Er) 25 Mg Tab.Er.24h PO BID [facility] Multivitamins 1 each 10/07/22 09:00 Multivitamins, Thera 1 Each Tab PO DAILY [facility] Naloxone HCl 0.2 mg 10/06/22 22:59 Naloxone 0.4 Mg/Ml 1 Ml Vial IV Q2M PRN Opioid Reversal Intake and Output 10/06/22 10/07/22 10/07/22 22:59 06:59 14:59 Other: Weight 145.15 kg 10/06/22 18:17 10/06/22 18:17
[2022-10-07 11:47] LABS: Glucose,Whole Blood 222 mg/dL (70-110)
[2022-10-07 16:20] LABS: African American GFR (CKD) 86 (>60 ml/min/1.73 sqM); Anion Gap 10 mmol/L; Blood Urea Nitrogen 15 mg/dL (7-17); Calcium 9.9 mg/dL (8.4-10.2); Carbon Dioxide 33 mmol/L (22-30); Chloride 95 mmol/L (98-107); Glucose 242 mg/dL (74-99); Magnesium 1.4 mg/dL (1.6-2.3); Non-African American GFR(CKD) 75 (>60 ml/min/1.73 sqM); Potassium 3.8 mmol/L (3.5-5.1); Sodium 138 mmol/L (137-145)
--- NOTE | 2022-10-07 17:06 | P.PN ---
Subjective Progress Note Date: 10/07/22 Hospital Course: 67-year-old female with a PMH of type II DM, hypertension, hyperlipidemia, coronary artery disease status post stents, status post aortic valve replacement who presents to the emergency room with complaints of leg swelling, bradycardia, shortness of breath, and fatigue. The patient reports that she recently underwent aortic valve replacement as well as a carotid surgery at [facility] and that since then, she has been experiencing occasional dizziness with bradycardia. She reports gradually worsening lower extremity swelling over the past week. Denied chest discomfort, nausea, vomiting. The patient also endorsed vaginal drainage and erythema. Denied dysuria or history of STI's. Upon presentation at the emergency room, the patient SpO2 is 93% on room air. EKG had revealed sinus rhythm with second-degree AV block at 82 bpm with left axis deviation and left bundle branch block (left bundle branch block and AV block new from prior EKG from 2014). Chest x-ray in the emergency room was consistent with congestive heart failure. Laboratory evaluation was remarkable for troponin less than 0.012, proBNP 476, magnesium 1.3, glucose 265, calcium 5.3. Cardiology consulted. Currently being treated for CHF exacerbation. Subjective: Patient seen and examined at bedside. No acute events overnight. Denies any significant chest pain, shortness of breath, abdominal pain. Pertinent positives and negatives as discussed above, a complete review of systems was performed and all other systems are negative. Vitals Signs Reviewed. General: nontoxic, no distress, appears at stated age, morbidly obese Derm: warm, dry, well where an perineal ulcerations, without any significant duration, erythema, or discharge Head: atraumatic, normocephalic, symmetric Eyes: EOMI, no lid lag, anicteric sclera Mouth: no lip lesion, mucus membranes moist Cardiovascular: S1S2 reg, no murmur Lungs: CTA bilateral, no rhonchi, no rales , no accessory muscle use Abdominal: soft, nontender to palpation, no guarding, no appreciable organomegaly Ext: no gross muscle atrophy, 2+ pitting lower extremity edema, no contractures Neuro: CN II-XI grossly intact, no focal neuro deficits Psych: Alert, oriented, appropriate affect Assessment and Plan: Acute CHF exacerbation -Lasix 40 mg IV every 12 hours -Cardiology consult -Cardiac monitoring -Intake and output -Daily weights -Monitor electrolytes Second-degree heart block and left bundle branch block Status post recent aortic valve replacement and a carotid surgery at [facility] History of sarcoidosis -Cardiology consulted Hypomagnesemia - improving -Replace and monitor Hyperkalemia - resolved -Status post Kayexalate Perineal ulcerations 40 history of cervical cancer -Wound care consult -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 -Possibly autoimmune versus infectious, malignancy less likely Chronic conditions: Type II DM, hypertension, hyperkalemia, CAD -Continue with home meds -Insulin sliding scale and blood glucose monitoring DVT ppx: Subcu heparin Code status: Full Code Anticipated discharge place: Pending clinical course Anticipated discharge time: Pending clinical course Objective - Vital Signs Vital signs: Vital Signs Temp 98.2 F 10/07/22 15:00 Pulse 73 10/07/22 15:00 Resp 20 10/07/22 15:00 BP 160/85 10/07/22 15:00 Pulse Ox 95 10/07/22 15:00 FiO2 Intake & Output 10/06/22 10/07/22 10/07/22 18:59 06:59 18:59 Intake Total 240 Balance 240 Weight 145.15 kg 145.15 kg Intake: Oral 240 Other: # Voids 0 # Bowel Movements 0 - Labs CBC & Chem 7: 10/06/22 18:17 10/07/22 15:44 Labs: Abnormal Lab Results - Last 24 Hours (Table) 10/06/22 10/06/22 10/07/22 Range/Units 18:17 18:17 05:46 Potassium 5.3 H (3.5-5.1) mmol/L Chloride (98-107) mmol/L Carbon Dioxide 33 H 27.9 H (22-30) mmol/L BUN 18 H (7-17) mg/dL Glucose 265 H 202 H (74-99) mg/dL POC Glucose (mg/dL) (70-110) mg/dL Magnesium 1.3 L 1.3 L (1.6-2.3) mg/dL Urine Appearance Cloudy H (Clear) Urine Glucose (UA) 3+ H (Negative) Urine Bacteria Moderate H (None) /hpf Urine Mucus Rare H (None) /hpf 10/07/22 10/07/22 Range/Units 11:30 15:44 Potassium (3.5-5.1) mmol/L Chloride 95 L (98-107) mmol/L Carbon Dioxide 33 H (22-30) mmol/L BUN (7-17) mg/dL Glucose 242 H (74-99) mg/dL POC Glucose (mg/dL) 222 H (70-110) mg/dL Magnesium 1.4 L (1.6-2.3) mg/dL Urine Appearance (Clear) Urine Glucose (UA) (Negative) Urine Bacteria (None) /hpf Urine Mucus (None) /hpf
[2022-10-07 17:22] LABS: Glucose,Whole Blood 247 mg/dL (70-110)
[2022-10-07] MEDS: diazePAM 2 MG TAB PO SCH (18:16)
[2022-10-07] MEDS: PANTOPRAZOLE 40 MG TABLET PO SCH (18:16)
[2022-10-07] MEDS ORDERED: FUROSEMIDE 40 MG TAB PO STA (18:46)
[2022-10-07 19:24] LABS: Glucose,Whole Blood 253 mg/dL (70-110)
[2022-10-07] MEDS: LORATADINE 10 MG TAB PO SCH (19:27)
[2022-10-07] MEDS: DICYCLOMINE 10 MG CAP PO SCH ×2 (19:27→21:56)
[2022-10-07] MEDS: LATANOPROST 0.005% OPHTH DROPS 2.5 ML BTL BOTH EYES SCH (21:56)
[2022-10-08 01:53] LABS: Glucose,Whole Blood 221 mg/dL (70-110)
[2022-10-08] MEDS: HYDROcodone/APAP 10-325MG 1 EACH TAB PO PRN (02:57)
[2022-10-08 06:10] LABS: Glucose,Whole Blood 261 mg/dL (70-110)
[2022-10-08] MEDS: PANTOPRAZOLE 40 MG TABLET PO SCH ×2 (06:13→17:21)
[2022-10-08] MEDS: INSULIN ASPART (NovoLOG) 100 UNIT/ML VIAL SQ SCH ×4 (06:13→21:46)
[2022-10-08] MEDS: MAGNESIUM SULFATE-D5W PMX 1 GM in DEXTROSE/WATER 1 100ML.BAG IVPB SCH ×2 (08:53→09:12)
[2022-10-08] MEDS ORDERED: FUROSEMIDE 40 MG TAB PO SCH (09:00)
[2022-10-08] MEDS: MAGNESIUM OXIDE 400 MG TAB PO SCH ×3 (09:24→21:46)
[2022-10-08] MEDS: BUMETANIDE 1 MG TAB PO SCH (09:24)
[2022-10-08] MEDS: DICYCLOMINE 10 MG CAP PO SCH ×4 (09:24→21:46)
[2022-10-08] MEDS: MULTIVITAMINS, THERA 1 EACH TAB PO SCH (09:24)
[2022-10-08] MEDS: ATORVASTATIN 20 MG TAB PO SCH (09:24)
[2022-10-08] MEDS: ASPIRIN 81 MG PO SCH (09:24)
[2022-10-08] MEDS: CLOPIDOGREL 75 MG TAB PO SCH (09:24)
[2022-10-08] MEDS: METOPROLOL SUCCINATE (ER) 25 MG TAB.ER.24H PO SCH ×2 (09:25→21:46)
[2022-10-08] MEDS: HEPARIN SODIUM,PORCINE/PF 5,000 UNIT/0.5 ML SYRINGE SQ SCH ×3 (09:25→21:46)
[2022-10-08] MEDS: diazePAM 2 MG TAB PO SCH (09:25)
[2022-10-08 09:43] LABS: African American GFR (CKD) 59.3 (60.0-200.0); Anion Gap 14.2 mmol/L (10.00-18.00); BUN/Creat Ratio 14.27 Ratio (12.00-20.00); Blood Urea Nitrogen 15.7 mg/dL (9.0-27.0); Calcium 10.2 mg/dL (8.7-10.3); Carbon Dioxide 30.8 mmol/L (20.0-27.5); Magnesium 1.3 mg/dL (1.5-2.4); Non-African American GFR(CKD) 51.2 (60.0-200.0); Potassium 3.6 mmol/L (3.5-5.5)
--- NOTE | 2022-10-08 11:10 | P.CONS ---
History of Present Illness - Reason for Consult Consult date: 10/08/22 wound care - History of Present Illness Is a 67-year-old patient being seen on for nonhealing ulcerations to the perineum. Patient recently underwent a surgical intervention at [facility] where they utilize a cure width catheter. During that time patient developed some open ulcerations to the perineum and the left and right buttocks. At this time the ulceration show granulation with skin covering the majority of the granulations minimal to no slough noted. Ulcerations are small in size with no drainage noted. With movement and urination patient does experience some bleeding however none was noted at this time. Patient was also complaining of irritation to the bilateral lower extremities with flaking and scaling skin. Review Of Systems: Constitutional: No fever, no chills, no night sweats. No weight change. No weakness, fatigue or lethargy. No daytime sleepiness. Integumentary:reports wounds, no lesions. No rash or pruritus. No unusual bruising. No change in hair or nails. Physical exam: General Appearance: Alert, cooperative, no distress, appears stated age. Skin: See HPI all other Skin color, texture, tugor normal, no rashes or lesions. Neurologic: Alert oriented x3 Assessment: 1. Non-pressure ulcerations to other site multiple areas Limited to skin breakdown 2. Chronic venous hypertension and bilateral lower extremities with inflammation Plan: 1.Perineum: Apply triad to open ulcerations as needed and daily. Bilateral lower extremities apply bag balm and wrap with Dannie wrap. 2. Patient has a appointment in the wound care center in the upcoming weeks Thank you for the consultation any questions please contact the wound care center DNP note has been reviewed and discussed with Dr. Manzo and the impression and plan of care has been directed as dictated. Past Medical History Past Medical History: Asthma, Cancer, COPD, Diabetes Mellitus, Eye Disorder, Fibromyalgia, GERD/Reflux, Hyperlipidemia, Hypertension, Musculoskeletal Disorder, Osteoarthritis (OA), Respiratory Disorder, Sleep Apnea/CPAP/BIPAP Additional Past Medical History / Comment(s): CTS-BILAT WRISTS. HX CERVICAL CA- 1986. SARCOIDOSIS. DJD. GLAUCOMA& CATARACTS BILAT EYES. GOUT. HIATAL HERNIA. INCONTIENT OF URINE R/T LIMITED MOBILITY. USES C-PAP BUT CURRENTLY NEEDS A NEW ONE. STATES HAS VERY SMALL AIRWAY. USES CANE FOR AMBULATION AT THIS TIME History of Any Multi-Drug Resistant Organisms: None Reported Past Surgical History: Breast Surgery, Hysterectomy Additional Past Surgical History / Comment(s): COLONOSCOPYEGDBRONCHOSCOPY W/BRONCHIAL WASHNUMEROUS CYTS REMOVED FROM SCALP X 2LT BREAST BX x 2, 06-24-15 total lt hip Past Anesthesia/Blood Transfusion Reactions: No Reported Reaction Date of Last Stent Placement:: 06/2022 Past Psychological History: Anxiety, Depression, PTSD Smoking Status: Never smoker Past Alcohol Use History: None Reported Past Drug Use History: None Reported - Past Family History Mother Family Medical History: Deep Vein Thrombosis (DVT) Father History Unknown: Yes Family Medical History: Coronary Artery Disease (CAD) Medications and Allergies Home Medications Medication Instructions Recorded Confirmed Type Levocetirizine Dihydrochloride 5 mg PO HS 05/21/15 10/06/22 History [Xyzal] Aspirin [Adult Low Dose Aspirin EC] 81 mg PO DAILY 05/09/19 10/06/22 History Chlorzoxazone [Parafon Forte DSC] 500 mg PO TID PRN 05/09/19 10/06/22 History Furosemide [Lasix] 40 mg PO BID PRN 05/09/19 10/06/22 History Lansoprazole 30 mg PO BID 05/09/19 10/06/22 History Latanoprost [Xalatan 0.005%] 1 drop BOTH EYES HS 05/09/19 10/06/22 History Simvastatin [Zocor] 40 mg PO DAILY 05/09/19 10/06/22 History Clopidogrel [Plavix] 75 mg PO DAILY 10/06/22 10/06/22 History Dicyclomine HCl 10 mg PO QID 10/06/22 10/06/22 History Diphenoxylate HCl/Atropine 1 tab PO QID PRN 10/06/22 10/06/22 History [Lomotil 2.5-0.025 mg Tablet] Estradiol Cream [Estrace Cream 1 gm VAGINAL MOWEFR 10/06/22 10/06/22 History 0.01%] HYDROcodone/APAP 10-325MG [[place] 1 tab PO Q6H PRN 10/06/22 10/06/22 History 10-325] Hydrocortisone Oint 1 applic TOPICAL BID PRN 10/06/22 10/06/22 History [Hydrocortisone 2.5% Oint] Insulin Lispro Protamin/Lispro See Protocol SQ AC-TID 10/06/22 10/06/22 History [humaLOG Mix 75-25 Kwikpen] Magnesium Oxide [Magox 400] 400 mg PO TID 10/06/22 10/06/22 History Metoprolol Succinate (ER) [Toprol 25 mg PO BID 10/06/22 10/06/22 History Xl] Multivitamins, Thera [Multivitamin 1 tab PO DAILY 10/06/22 10/06/22 History (formulary)] Nystatin-Triamcinolone Oint 1 applic TOPICAL BID PRN 10/06/22 10/06/22 History [Mycolog 100,000-0.1 Unit/gm-% Oint] Pioglitazone [Actos] 45 mg PO DAILY 10/06/22 10/06/22 History SILVER sulfADIAZINE Cream 1 applic TOPICAL BID PRN 10/06/22 10/06/22 History [Silvadene 1% Cream] Triamcinolone 0.1% Ointment 1 applic TOPICAL BID PRN 10/06/22 10/06/22 History [Kenalog 0.1% Ointment] diazePAM [Valium] 2 mg PO DAILY 10/06/22 10/06/22 History Allergies Allergy/AdvReac Type Severity Reaction Status Date / Time metolazone [From Zaroxolyn] AdvReac Rapid Verified 05/09/19 13:58 Heart Rate morphine AdvReac Nausea, Verified 05/09/19 13:58 headache nalbuphine HCl [From Nubain] AdvReac Rapid Verified 05/09/19 13:58 Heart Rate Penicillins AdvReac Unknown Verified 10/06/22 18:01 Physical Exam Vitals: Vital Signs Temp Pulse Pulse Resp BP BP Pulse Ox 10/08/22 07:00 97.4 F L 77 20 126/75 94 L 10/08/22 01:25 98.0 F 90 21 148/71 93 L 10/07/22 19:38 20 10/07/22 19:15 97.6 F 83 18 151/69 97 10/07/22 15:00 98.2 F 73 20 160/85 95 Intake and Output 10/07/22 10/08/22 10/08/22 22:59 06:59 14:59 Other: # Voids 1 1 # Bowel Movements 0 Weight 142.3 kg Results CBC & Chem 7: 10/06/22 18:17 10/08/22 06:20 Labs: Abnormal Lab Results - Last 24 Hours (Table) 10/07/22 10/07/22 10/07/22 Range/Units 11:30 15:44 17:15 Chloride 95 L (98-107) mmol/L Carbon Dioxide 33 H (22-30) mmol/L Est GFR (CKD-EPI)AfAm (60.0-200.0) Est GFR (CKD-EPI)NonAf (60.0-200.0) Glucose 242 H (74-99) mg/dL POC Glucose (mg/dL) 222 H 247 H (70-110) mg/dL Magnesium 1.4 L (1.6-2.3) mg/dL 10/07/22 10/08/22 10/08/22 Range/Units 19:23 01:51 06:09 Chloride (98-107) mmol/L Carbon Dioxide (22-30) mmol/L Est GFR (CKD-EPI)AfAm (60.0-200.0) Est GFR (CKD-EPI)NonAf (60.0-200.0) Glucose (74-99) mg/dL POC Glucose (mg/dL) 253 H 221 H 261 H (70-110) mg/dL Magnesium (1.6-2.3) mg/dL 10/08/22 Range/Units 06:20 Chloride 93 L (98-107) mmol/L Carbon Dioxide 30.8 H (22-30) mmol/L Est GFR (CKD-EPI)AfAm 59.3 L (60.0-200.0) Est GFR (CKD-EPI)NonAf 51.2 L (60.0-200.0) Glucose 239 H (74-99) mg/dL POC Glucose (mg/dL) (70-110) mg/dL Magnesium 1.3 L (1.6-2.3) mg/dL Assessment and Plan (1) Non-pressure chronic ulcer of skin of other sites limited to breakdown of skin Current Visit: Yes Status: Acute Code(s): L98.491 - NON-PRS CHRONIC ULCER SKIN/ SITES LIMITED TO BRKDWN SKIN SNOMED Code(s): 37396403 (2) Chronic venous hypertension (idiopathic) with inflammation of bilateral lower extremity Current Visit: Yes Status: Acute Code(s): I87.323 - CHRONIC VENOUS HTN W INFLAMMATION OF BILATERAL LOW EXTRM SNOMED Code(s): 970946350
[2022-10-08 12:50] LABS: Glucose,Whole Blood 231 mg/dL (70-110)
[2022-10-08 13:11] LABS: HIV 2 AB Non-Reactive (Non-Reactive); HIV AB P24 Non-Reactive (Non-Reactive); HIV P24 AG Non-Reactive (Non-Reactive)
--- NOTE | 2022-10-08 16:28 | P.PN ---
Subjective Progress Note Date: 10/08/22 Hospital Course: 67-year-old female with a PMH of type II DM, hypertension, hyperlipidemia, coronary artery disease status post stents, status post aortic valve replacement who presents to the emergency room with complaints of leg swelling, bradycardia, shortness of breath, and fatigue. The patient reports that she recently underwent aortic valve replacement as well as a carotid surgery at [facility] and that since then, she has been experiencing occasional dizziness with bradycardia. She reports gradually worsening lower extremity swelling over the past week. Denied chest discomfort, nausea, vomiting. The patient also endorsed vaginal drainage and erythema. Denied dysuria or history of STI's. Upon presentation at the emergency room, the patient SpO2 is 93% on room air. EKG had revealed sinus rhythm with second-degree AV block at 82 bpm with left axis deviation and left bundle branch block (left bundle branch block and AV block new from prior EKG from 2014). Chest x-ray in the emergency room was consistent with congestive heart failure. Laboratory evaluation was remarkable for troponin less than 0.012, proBNP 476, magnesium 1.3, glucose 265, calcium 5.3. Cardiology consulted. Currently being treated for CHF exacerbation. Was initially on IV diuretics, now on oral Bumex. Pending echocardiogram. Subjective: Patient seen and examined at bedside. No acute events overnight. Denies any significant chest pain, shortness of breath, abdominal pain. Pertinent positives and negatives as discussed above, a complete review of systems was performed and all other systems are negative. Vitals Signs Reviewed. General: nontoxic, no distress, appears at stated age, morbidly obese Derm: warm, dry, well where an perineal ulcerations, without any significant duration, erythema, or discharge Head: atraumatic, normocephalic, symmetric Eyes: EOMI, no lid lag, anicteric sclera Mouth: no lip lesion, mucus membranes moist Cardiovascular: S1S2 reg, no murmur Lungs: CTA bilateral, no rhonchi, no rales , no accessory muscle use Abdominal: soft, nontender to palpation, no guarding, no appreciable organomegaly Ext: no gross muscle atrophy, 2+ pitting lower extremity edema, no contractures Neuro: CN II-XI grossly intact, no focal neuro deficits Psych: Alert, oriented, appropriate affect Assessment and Plan: Acute CHF exacerbation -Now on oral Bumex 1 mg daily -Cardiology consult -Cardiac monitoring -Intake and output -Daily weights -Monitor electrolytes -Echo pending Second-degree heart block and left bundle branch block Status post recent aortic valve replacement and a carotid surgery at [facility] History of sarcoidosis -Cardiology consulted Hypomagnesemia -Replace and monitor Hyperkalemia - resolved -Status post Kayexalate Perineal ulcerations Past history of cervical cancer -Wound care consult -DECAL CUTTER consult -Possibly autoimmune versus infectious, malignancy less likely -Independent -HIV testing, syphilis test Chronic conditions: Type II DM, hypertension, hyperkalemia, CAD -Continue with home meds -Insulin sliding scale and blood glucose monitoring DVT ppx: Subcu heparin Code status: Full Code Anticipated discharge place: Home Anticipated discharge time: Likely tomorrow Objective - Vital Signs Vital signs: Vital Signs Temp 98.2 F 10/08/22 14:29 Pulse 89 10/08/22 14:29 Resp 19 10/08/22 14:29 BP 98/63 10/08/22 14:29 Pulse Ox 95 10/08/22 14:29 FiO2 Intake & Output 10/07/22 10/08/22 10/08/22 18:59 06:59 18:59 Intake Total 240 Balance 240 Weight 145.15 kg 142.3 kg Intake: Oral 240 Other: # Voids 0 1 1 # Bowel Movements 0 0 - Labs CBC & Chem 7: 10/06/22 18:17 10/08/22 06:20 Labs: Abnormal Lab Results - Last 24 Hours (Table) 10/07/22 10/07/22 10/08/22 Range/Units 17:15 19:23 01:51 Chloride (96-109) mmol/L Carbon Dioxide (20.0-27.5) mmol/L Est GFR (CKD-EPI)AfAm (60.0-200.0) Est GFR (CKD-EPI)NonAf (60.0-200.0) Glucose (70-110) mg/dL POC Glucose (mg/dL) 247 H 253 H 221 H (70-110) mg/dL Magnesium (1.5-2.4) mg/dL 10/08/22 10/08/22 10/08/22 Range/Units 06:09 06:20 12:47 Chloride 93 L (96-109) mmol/L Carbon Dioxide 30.8 H (20.0-27.5) mmol/L Est GFR (CKD-EPI)AfAm 59.3 L (60.0-200.0) Est GFR (CKD-EPI)NonAf 51.2 L (60.0-200.0) Glucose 239 H (70-110) mg/dL POC Glucose (mg/dL) 261 H 231 H (70-110) mg/dL Magnesium 1.3 L (1.5-2.4) mg/dL
[2022-10-08] MEDS: PETROLAT,WHITE/LAN/8-HYDROXYQU 227 GM OINT TOPICAL SCH (17:21)
[2022-10-08 17:39] LABS: Glucose,Whole Blood 259 mg/dL (70-110)
--- NOTE | 2022-10-08 18:03 | CA ---
Transthoracic Echo Report Name: Roseline Larose Age: 67 Gender: F : 1955 Exam Date: 10/08/2022 16:57 Exam Location: [facility] Ht (in): 64 Wt (lb): 313 Ordering Physician: Scarlett Adamson Attending/Referring Phys: [id number], Juan Diego Sales Applications Engineer Sarah Rahman RDCS Procedure CPT: Indications: LV function Cardiac Hx: Technical Quality: Fair Contrast 1: Total Dose (mL): Contrast 2: Total Dose (mL): MEASUREMENTS (Male / Female) Normal Values 2D ECHO LV Diastolic Diameter PLAX 4.0 cm 4.2 - 5.9 / 3.9 - 5.3 cm LV Systolic Diameter PLAX 2.4 cm IVS Diastolic Thickness 1.7 cm 0.6 - 1.0 / 0.6 - 0.9 cm LVPW Diastolic Thickness 1.6 cm 0.6 - 1.0 / 0.6 - 0.9 cm LV Relative Wall Thickness 0.8 RV Internal Dim ED PLAX 2.8 cm LVOT Diameter 1.4 cm LA Systolic Diameter LX 3.8 cm 3.0 - 4.0 / 2.7 - 3.8 cm M-MODE Aortic Root Diameter MM 2.0 cm DOPPLER AV Peak Velocity 325.9 cm/s AV Peak Gradient 42.5 mmHg AV Mean Velocity 226.4 cm/s AV Mean Gradient 22.9 mmHg AV Velocity Time Integral 54.0 cm LVOT Peak Velocity 135.7 cm/s LVOT Peak Gradient 7.4 mmHg LVOT Velocity Time Integral 24.4 cm LVOT Stroke Volume 36.5 cm??? LVOT Stroke Volume Index 15.4 ml/m??? LVOT Cardiac Index 1281.2 cm???/min???m??? AV Area Cont Eq vti 0.7 cm??? AV Area Cont Eq pk 0.6 cm??? TR Peak Velocity 339.9 cm/s TR Peak Gradient 46.2 mmHg Right Ventricular Systolic Press 48.6 mmHg FINDINGS Left Ventricle Severely increased septal wall thickness. Severely increased posterior wall thickness. Left ventricular ejection fraction is estimated at 45-50%. Right Ventricle Normal right ventricular size and function. Mild pulmonary hypertension. Right Atrium Normal right atrial size. Left Atrium Mildly increased left atrial area. Mitral Valve Mild mitral annular calcification. Mitral valve thickened. Mild mitral regurgitation. Centrally directed mitral regurgitation jet. Aortic Valve Normally functioning bioprosthetic aortic valve without stenosis with a peak velocity of 3 m/s, peak gradient 43mmHg, mean gradient 23 mmHg, and estimated aortic valve area of .7 cm???. No paravalvular aortic regurgitation. Tricuspid Valve Structurally normal tricuspid valve. Ahtr-se-pofugnaf tricuspid regurgitation. Pulmonic Valve Trace pulmonic regurgitation. Pericardium No pericardial effusion. Aorta Normal size aortic root and proximal ascending aorta. CONCLUSIONS Severe increased left ventricular wall thickness Left ventricular ejection fraction 45-50% Normally functioning bioprosthetic aortic valve Septal bounce with some ventricular interdependence which can be seen with constriction. Clinical correlation recommended Mild to moderate tricuspid regurgitation Mild mitral regurgitation No pericardial effusion Previewed by: Dr. Syed Ozuna DO (Electronically Signed) Final Date: 08 October 2022 18:02
--- NOTE | 2022-10-08 20:23 | P.OBCN ---
History of Present Illness Consult date: 10/08/22 Reason for consult: other (perineal lesions) Chief complaint: perineal lesions History of present illness: this is a 67 yo that was admitted to the hospital for CHF exacerbation. Upon admission she stated she had been dealing with some vaginal/perineal lesions for years. Patient states she last saw a recording studio internship in 2017 [facility] and the [place] area. She has not seen her in many years. Patient denies vaginal bleeding. Patient had a hysterectomy in the remote past for cervical cancer. Patient states after surgery she has done well. Patient states she has seen a cook candy for the last 3 years for these lesions/areas of concern. She denies any improvement in the areas. Wound care has seen this patient prior to my arrival on the case, cultures were obtained. Upon review of chart cultures were positive for Klebsiella, negative HSV cultures. Patient is a known diabetic is at bedside and states her blood sugars were well controlled at home but have been significantly higher since being in the hospital. Of note patient had aortic valve replacement done at [facility] at the end of last year. Patient upon questioning states that they were placing a barrier cream on her perineum secondary to incontinence, and this is when the lesions significantly worsened. Review of Systems Constitutional: Reports fatigue, Denies chills, Denies fever Cardiovascular: Reports leg edema Gastrointestinal: Denies nausea, Denies vomiting Genitourinary: Reports genital sores Menstruation: Reports postmenopausal Past Medical History Past Medical History: Asthma, Cancer, COPD, Diabetes Mellitus, Eye Disorder, Fibromyalgia, GERD/Reflux, Hyperlipidemia, Hypertension, Musculoskeletal Disorder, Osteoarthritis (OA), Respiratory Disorder, Sleep Apnea/CPAP/BIPAP Additional Past Medical History / Comment(s): CTS-BILAT WRISTS. HX CERVICAL CA- 1986. SARCOIDOSIS. DJD. GLAUCOMA& CATARACTS BILAT EYES. GOUT. HIATAL HERNIA. INCONTIENT OF URINE R/T LIMITED MOBILITY. USES C-PAP BUT CURRENTLY N EEDS A NEW ONE. STATES HAS VERY SMALL AIRWAY. USES CANE FOR AMBULATION AT THIS TIME History of Any Multi-Drug Resistant Organisms: None Reported Past Surgical History: Breast Surgery, Hysterectomy Additional Past Surgical History / Comment(s): COLONOSCOPYEGDBRONCHOSCOPY W/BRONCHIAL WASHNUMEROUS CYTS REMOVED FROM SCALP X 2LT BREAST BX x 2, 06-24-15 total lt hip Past Anesthesia/Blood Transfusion Reactions: No Reported Reaction Date of Last Stent Placement:: 06/2022 Past Psychological History: Anxiety, Depression, PTSD Smoking Status: Never smoker Past Alcohol Use History: None Reported Past Drug Use History: None Reported - Past Family History Mother Family Medical History: Deep Vein Thrombosis (DVT) Father History Unknown: Yes Family Medical History: Coronary Artery Disease (CAD) Medications and Allergies Home Medications Medication Instructions Recorded Confirmed Type Levocetirizine Dihydrochloride 5 mg PO HS 05/21/15 10/06/22 History [Xyzal] Aspirin [Adult Low Dose Aspirin EC] 81 mg PO DAILY 05/09/19 10/06/22 History Chlorzoxazone [Parafon Forte DSC] 500 mg PO TID PRN 05/09/19 10/06/22 History Furosemide [Lasix] 40 mg PO BID PRN 05/09/19 10/06/22 History Lansoprazole 30 mg PO BID 05/09/19 10/06/22 History Latanoprost [Xalatan 0.005%] 1 drop BOTH EYES HS 05/09/19 10/06/22 History Simvastatin [Zocor] 40 mg PO DAILY 05/09/19 10/06/22 History Clopidogrel [Plavix] 75 mg PO DAILY 10/06/22 10/06/22 History Dicyclomine HCl 10 mg PO QID 10/06/22 10/06/22 History Diphenoxylate HCl/Atropine 1 tab PO QID PRN 10/06/22 10/06/22 History [Lomotil 2.5-0.025 mg Tablet] Estradiol Cream [Estrace Cream 1 gm VAGINAL MOWEFR 10/06/22 10/06/22 History 0.01%] HYDROcodone/APAP 10-325MG [[place] 1 tab PO Q6H PRN 10/06/22 10/06/22 History 10-325] Hydrocortisone Oint 1 applic TOPICAL BID PRN 10/06/22 10/06/22 History [Hydrocortisone 2.5% Oint] Insulin Lispro Protamin/Lispro See Protocol SQ AC-TID 10/06/22 10/06/22 History [humaLOG Mix 75-25 Kwikpen] Magnesium Oxide [Magox 400] 400 mg PO TID 10/06/22 10/06/22 History Metoprolol Succinate (ER) [Toprol 25 mg PO BID 10/06/22 10/06/22 History Xl] Multivitamins, Thera [Multivitamin 1 tab PO DAILY 10/06/22 10/06/22 History (formulary)] Nystatin-Triamcinolone Oint 1 applic TOPICAL BID PRN 10/06/22 10/06/22 History [Mycolog 100,000-0.1 Unit/gm-% Oint] Pioglitazone [Actos] 45 mg PO DAILY 10/06/22 10/06/22 History SILVER sulfADIAZINE Cream 1 applic TOPICAL BID PRN 10/06/22 10/06/22 History [Silvadene 1% Cream] Triamcinolone 0.1% Ointment 1 applic TOPICAL BID PRN 10/06/22 10/06/22 History [Kenalog 0.1% Ointment] diazePAM [Valium] 2 mg PO DAILY 10/06/22 10/06/22 History Allergies Allergy/AdvReac Type Severity Reaction Status Date / Time metolazone [From Zaroxolyn] AdvReac Rapid Verified 05/09/19 13:58 Heart Rate morphine AdvReac Nausea, Verified 05/09/19 13:58 headache nalbuphine HCl [From Nubain] AdvReac Rapid Verified 05/09/19 13:58 Heart Rate Penicillins AdvReac Unknown Verified 10/06/22 18:01 Exam Osteopathic Statement: *. No significant issues noted on an osteopathic structural exam other than those noted in the History and Physical/Consult. Vital Signs Temp Pulse Resp BP BP Pulse Ox 10/08/22 18:49 98.4 F 96 19 100/64 94 L 10/08/22 14:29 98.2 F 89 19 98/63 95 10/08/22 07:00 97.4 F L 77 20 126/75 94 L 10/08/22 01:25 98.0 F 90 21 148/71 93 L Intake and Output 10/08/22 10/08/22 10/08/22 06:59 14:59 22:59 Intake Total 118 Balance 118 Intake: Oral 118 Other: # Voids 1 Weight 142.3 kg Targeted physical exam is performed in this date in general this is a obese female in no acute distress, abdomen is noted to be obese, difficult external vaginal exam secondary to prior placement of a whitish cream that is noted all over her external genitalia vulva perineum. No obvious lesions were appreciated although exam was quite limited secondary to ability for patient to move and see the entire perineum. Results Result Diagrams: 10/06/22 18:17 10/08/22 06:20 Abnormal Lab Results - Last 24 Hours (Table) 10/08/22 10/08/22 10/08/22 Range/Units 01:51 06:09 06:20 Chloride 93 L (96-109) mmol/L Carbon Dioxide 30.8 H (20.0-27.5) mmol/L Est GFR (CKD-EPI)AfAm 59.3 L (60.0-200.0) Est GFR (CKD-EPI)NonAf 51.2 L (60.0-200.0) Glucose 239 H (70-110) mg/dL POC Glucose (mg/dL) 221 H 261 H (70-110) mg/dL Magnesium 1.3 L (1.5-2.4) mg/dL 10/08/22 10/08/22 Range/Units 12:47 17:29 Chloride (96-109) mmol/L Carbon Dioxide (20.0-27.5) mmol/L Est GFR (CKD-EPI)AfAm (60.0-200.0) Est GFR (CKD-EPI)NonAf (60.0-200.0) Glucose (70-110) mg/dL POC Glucose (mg/dL) 231 H 259 H (70-110) mg/dL Magnesium (1.5-2.4) mg/dL Assessment and Plan (1) Non-pressure chronic ulcer of skin of other sites limited to breakdown of skin Current Visit: Yes Status: Acute Code(s): L98.491 - NON-PRS CHRONIC ULCER SKIN/ SITES LIMITED TO BRKDWN SKIN SNOMED Code(s): 09589828 (2) Chronic venous hypertension (idiopathic) with inflammation of bilateral lower extremity Current Visit: Yes Status: Acute Code(s): I87.323 - CHRONIC VENOUS HTN W INFLAMMATION OF BILATERAL LOW EXTRM SNOMED Code(s): 905645720 (3) Congestive heart failure Current Visit: Yes Status: Acute Code(s): I50.9 - HEART FAILURE, UNSPECIFIED SNOMED Code(s): 58719514 (4) Shortness of breath Current Visit: Yes Status: Acute Code(s): R06.02 - SHORTNESS OF BREATH SNOMED Code(s): 936021897 Plan: 67-year-old patient that presented with exacerbation of CHF. Upon admission patient noted concerns about vaginal/perineal lesions. Wound care has been consulted prior to my consult and has seen and evaluated the patient, cultures were obtained, positive for Klebsiella and negative for HSV (cultures were obtained on 09/28). I had a difficult time visualizing the lesions secondary to immobility of the patient. Given wound care had seen the patient and had recommendations previously I do believe that is the right course for her. She has been dealing with these ulcerations for many years her herself and her . Patient has been seeing dermatology for approximately 3 years with no resolution of ulcers. Given her limited mobility and multiple medical issues the ulceration/lesions are mostly likely exacerbated by this as well. I will defer to wound care for recommendations. I will follow along in the chart and if I can be any further service please feel free to reach out.
[2022-10-08 20:42] LABS: Glucose,Whole Blood 250 mg/dL (70-110)
[2022-10-08] MEDS: LATANOPROST 0.005% OPHTH DROPS 2.5 ML BTL BOTH EYES SCH (21:46)
[2022-10-08] MEDS: LORATADINE 10 MG TAB PO SCH (21:46)
[2022-10-08] MEDS: HYDROPHILIC CREAM 180 GM TUBE TOPICAL SCH (21:47)
[2022-10-09] MEDS: HYDROcodone/APAP 10-325MG 1 EACH TAB PO PRN ×2 (00:43→12:53)
[2022-10-09 05:57] LABS: Glucose,Whole Blood 168 mg/dL (70-110)
[2022-10-09] MEDS: INSULIN ASPART (NovoLOG) 100 UNIT/ML VIAL SQ SCH ×2 (06:32→12:54)
[2022-10-09] MEDS: PANTOPRAZOLE 40 MG TABLET PO SCH (06:33)
[2022-10-09 07:36] VITALS: BP 119/73; PULSE 82; RESP 18; TEMP 98.1
[2022-10-09] MEDS ORDERED: METOPROLOL SUCCINATE (ER) 25 MG TAB.ER.24H PO SCH (09:00)
[2022-10-09] MEDS: PETROLAT,WHITE/LAN/8-HYDROXYQU 227 GM OINT TOPICAL SCH (10:32)
[2022-10-09] MEDS: HYDROPHILIC CREAM 180 GM TUBE TOPICAL SCH (10:32)
[2022-10-09] MEDS: MULTIVITAMINS, THERA 1 EACH TAB PO SCH (10:33)
[2022-10-09] MEDS: ASPIRIN 81 MG PO SCH (10:33)
[2022-10-09] MEDS: MAGNESIUM OXIDE 400 MG TAB PO SCH (10:33)
[2022-10-09] MEDS: BUMETANIDE 1 MG TAB PO SCH (10:33)
[2022-10-09] MEDS: diazePAM 2 MG TAB PO SCH ×2 (10:33→14:17)
[2022-10-09] MEDS: CLOPIDOGREL 75 MG TAB PO SCH (10:33)
[2022-10-09] MEDS: ATORVASTATIN 20 MG TAB PO SCH (10:34)
[2022-10-09] MEDS: DICYCLOMINE 10 MG CAP PO SCH ×2 (10:34→12:54)
[2022-10-09] MEDS: HEPARIN SODIUM,PORCINE/PF 5,000 UNIT/0.5 ML SYRINGE SQ SCH (10:34)
[2022-10-09 12:39] LABS: Glucose,Whole Blood 289 mg/dL (70-110)
--- NOTE | 2022-10-09 14:18 | P.DS ---
Providers Date of admission: 10/07/22 11:44 Expected date of discharge: 10/09/22 Attending physician: Brandon Lam MD Consults: 10/06/22 22:59 Consult Physician Routine Consulting Provider: [facility] Consult Reason/Comments: CHF exas Do you want consulting provider notified?: Yes, Notify in am 10/07/22 04:02 Consult Physician Urgent Consulting Provider: Liz Yañez Consult Reason/Comments: Vaginal discharge, pruritis, erythema Do you want consulting provider notified?: Yes Primary care physician: Celia Stahl Hospital Course: Discharge Diagnosis: Acute CHF exacerbation Second-degree heart block and left bundle branch block Status post recent aortic valve replacement Recent carotid surgery Hypomagnesemia Hypokalemia Perineal ulcerations History of cervical cancer Hospital Course: 67-year-old female with a PMH of type II DM, hypertension, hyperlipidemia, coronary artery disease status post stents, status post aortic valve replacement who presents to the emergency room with complaints of leg swelling, bradycardia, shortness of breath, and fatigue. The patient reports that she recently underwent aortic valve replacement as well as a carotid surgery at [facility] and that since then, she has been experiencing occasional dizziness with bradycardia. She reports gradually worsening lower extremity swelling over the past week. Was also complaining of perineal ulcers. Upon presentation at the emergency room, the patient SpO2 is 93% on room air. EKG had revealed sinus rhythm with second-degree AV block at 82 bpm with left axis deviation and left bundle branch block (left bundle branch block and AV block new from prior EKG from 2015). Chest x-ray in the emergency room was consistent with congestive heart failure. Laboratory evaluation was remarkable for troponin less than 0.012, proBNP 476, magnesium 1.3, glucose 265, calcium 5.3. Cardiology consulted. Patient treated for CHF exacerbation with IV diuretics, now on oral Bumex. Echocardiogram showed LVEF 45-50%, mild to moderate TR, mild MR, severely increased LV thickness. With regards to hypomagnesemia, patient will continue to take magnesium oxide 400 3 times a day. Wound care and gynecology also consulted with regards to perineally ulcerations. No active infection. Patient to see wound care clinic as soon as possible. Patient will also see her clutch specialist for second-degree AV block. Currently asymptomatic. Patient seen and examined at bedside. Vital signs reviewed and stable. General: nontoxic, no distress, appears at stated age, morbidly obese Derm: warm, dry, well demarcated perineal ulcerations, without any significant duration, erythema, or discharge Head: atraumatic, normocephalic, symmetric Eyes: EOMI, no lid lag, anicteric sclera Mouth: no lip lesion, mucus membranes moist Cardiovascular: S1S2 reg, no murmur Lungs: CTA bilateral, no rhonchi, no rales , no accessory muscle use Abdominal: soft, nontender to palpation, no guarding, no appreciable organomegaly Ext: no gross muscle atrophy, 1+ pitting lower extremity edema, no contractures Neuro: CN II-XI grossly intact, no focal neuro deficits Psych: Alert, oriented, appropriate affect A total of 67 minutes of time were spent preparing this complex discharge summary. Patient was discharged on 10/09/22 at 11:05. Patient Condition at Discharge: Stable Plan - Discharge Summary Discharge Rx Participant: No New Discharge Prescriptions: New Petrolat,White/Heri/8-Hydroxyqu [Bag [place]] 1 gm TOPICAL DAILY #90 gm Bumetanide [BUMEX] 1 mg PO DAILY #60 tab Continue Levocetirizine Dihydrochloride [Xyzal] 5 mg PO HS Latanoprost [Xalatan 0.005%] 1 drop BOTH EYES HS Lansoprazole 30 mg PO BID Chlorzoxazone [Parafon Forte DSC] 500 mg PO TID PRN PRN Reason: Pain Aspirin [Adult Low Dose Aspirin EC] 81 mg PO DAILY Simvastatin [Zocor] 40 mg PO DAILY Metoprolol Succinate (ER) [Toprol XL] 25 mg PO BID Magnesium Oxide [Magox 400] 400 mg PO TID HYDROcodone/APAP 10-325MG [[place] 10-325] 1 tab PO Q6H PRN PRN Reason: Pain Diphenoxylate HCl/Atropine [Lomotil 2.5-0.025 mg Tablet] 1 tab PO QID PRN PRN Reason: Diarrhea Multivitamins, Thera [Multivitamin (formulary)] 1 tab PO DAILY Triamcinolone 0.1% Ointment [Kenalog 0.1% Ointment] 1 applic TOPICAL BID PRN PRN Reason: Rash Insulin Lispro Protamin/Lispro [humaLOG Mix 75-25 Kwikpen] See Protocol SQ AC-TID Pioglitazone [Actos] 45 mg PO DAILY Hydrocortisone Oint [Hydrocortisone 2.5% Oint] 1 applic TOPICAL BID PRN PRN Reason: Rash Estradiol Cream [Estrace Cream 0.01%] 1 gm VAGINAL MOWEFR Dicyclomine HCl 10 mg PO QID diazePAM [Valium] 2 mg PO DAILY Clopidogrel [Plavix] 75 mg PO DAILY Discontinued Furosemide [Lasix] 40 mg PO BID PRN PRN Reason: Edema Nystatin-Triamcinolone Oint [Mycolog 100,000-0.1 Unit/gm-% Oint] 1 applic TOPICAL BID PRN PRN Reason: Rash SILVER sulfADIAZINE Cream [Silvadene 1% Cream] 1 applic TOPICAL BID PRN PRN Reason: Rash Discharge Medication List Levocetirizine Dihydrochloride [Xyzal] 5 mg PO HS 05/21/15 [History] Aspirin [Adult Low Dose Aspirin EC] 81 mg PO DAILY 05/09/19 [History] Chlorzoxazone [Parafon Forte DSC] 500 mg PO TID PRN 05/09/19 [History] Lansoprazole 30 mg PO BID 05/09/19 [History] Latanoprost [Xalatan 0.005%] 1 drop BOTH EYES HS 05/09/19 [History] Simvastatin [Zocor] 40 mg PO DAILY 05/09/19 [History] Clopidogrel [Plavix] 75 mg PO DAILY 10/06/22 [History] Dicyclomine HCl 10 mg PO QID 10/06/22 [History] Diphenoxylate HCl/Atropine [Lomotil 2.5-0.025 mg Tablet] 1 tab PO QID PRN 10/06/22 [History] Estradiol Cream [Estrace Cream 0.01%] 1 gm VAGINAL MOWEFR 10/06/22 [History] HYDROcodone/APAP 10-325MG [[place] 10-325] 1 tab PO Q6H PRN 10/06/22 [History] Hydrocortisone Oint [Hydrocortisone 2.5% Oint] 1 applic TOPICAL BID PRN 10/06/22 [History] Insulin Lispro Protamin/Lispro [humaLOG Mix 75-25 Kwikpen] See Protocol SQ AC- TID 10/06/22 [History] Magnesium Oxide [Magox 400] 400 mg PO TID 10/06/22 [History] Metoprolol Succinate (ER) [Toprol XL] 25 mg PO BID 10/06/22 [History] Multivitamins, Thera [Multivitamin (formulary)] 1 tab PO DAILY 10/06/22 [History] Pioglitazone [Actos] 45 mg PO DAILY 10/06/22 [History] Triamcinolone 0.1% Ointment [Kenalog 0.1% Ointment] 1 applic TOPICAL BID PRN 10/06/22 [History] diazePAM [Valium] 2 mg PO DAILY 10/06/22 [History] Bumetanide [BUMEX] 1 mg PO DAILY #60 tab 10/09/22 [Rx] Petrolat,White/Heri/8-Hydroxyqu [Bag [place]] 1 gm TOPICAL DAILY #90 gm 10/09/22 [Rx] Follow up Appointment(s)/Referral(s): Celia Stahl DO [Primary Care Provider] - 10/13/22 9:30 am Syed Ozuna DO [STAFF PHYSICIAN] - 1 Week ([facility] office will call you with appointment date and time.) Activity/Diet/Wound Care/Special Instructions: Please see your PCP as soon as possible. Please see your clutch specialist as soon as possible, call them in the morning on Tuesday to make an appointment. Please see it technical support specialist at the wound care center. Wound care instructions: Apply triad to open ulcerations as needed and daily. Bilateral lower extremities apply bag balm and wrap with Dannie wrap. Discharge Disposition: HOME SELF-CARE
--- NOTE | 2022-10-09 16:11 | P.PN ---
Subjective Progress Note Date: 10/09/22 The patient is a 67-year-old female who follows with a monotype setter at [facility]. She is currently admitted to the hospital for increased shortness of breath and possible heart failure exacerbation. Minimal elevation in BNP. The patient had undergone stenting in June 2022 as well as aortic valve replacement via right carotid in August 2022. She states she had been feeling unwell and having increased shortness of breath over the several days prior to her admission. The patient states she did well overnight. Her breathing is better. Her main complaint is leg cramps and diaphoresis. Echocardiogram revealed severely increased septal wall thickness as well as severely increased posterior wall thickness with EF of 45-50%. GENERAL: Well-appearing, well-nourished and in no acute distress. NECK: Supple without JVD or thyromegaly. LUNGS: Breath sounds diminished to auscultation bilaterally. Respiration equal and unlabored. No wheezes, rales or rhonchi. HEART: Regular rate and rhythm. Systolic murmur. No rubs or gallops. S1 and S2 heard. EXTREMITIES: Normal range of motion, +3 lower extremity pitting edema. Chronic discoloration noted. No clubbing or cyanosis. Peripheral pulses intact and strong. VITALS: Blood pressure 119/73, SpO2 97% on room air, respiratory rate 18, pulse 82, temp 98.1F TELEMETRY: Sinus rhythm overnight IMPRESSION: Second-degree heart block, Mobitz 2 Congestive heart failure Unspecified cardiomyopathy, likely hypertrophic, EF 45-50% History of coronary artery disease, prior stenting in June 2022 History of aortic valve replacement, August 2022 History of hyperlipidemia History of pulmonary sarcoidosis PLAN: Reduce Toprol XL to 1 time per day Continue with event monitor Recommend outpatient follow-up with primary monotype setter early next week for Mobitz 2 after aortic valve replacement Patient will likely need pacemaker implantation I am dictating on behalf of Dr Antonio Ashraf's history/physical and assessment/plan. Objective - Vital Signs Vital signs: Vital Signs Temp 98.1 F 10/09/22 07:00 Pulse 82 10/09/22 07:00 Resp 18 10/09/22 07:00 BP 119/73 10/09/22 07:00 Pulse Ox 97 10/09/22 07:00 FiO2 Intake & Output 10/08/22 10/09/22 10/09/22 18:59 06:59 18:59 Intake Total 118 Balance 118 Weight 147.5 kg Intake: Oral 118 Other: # Voids 1 - Labs CBC & Chem 7: 10/06/22 18:17 10/08/22 06:20 Labs: Abnormal Lab Results - Last 24 Hours (Table) 10/08/22 10/08/22 10/08/22 Range/Units 06:20 12:47 17:29 Chloride 93 L (96-109) mmol/L Carbon Dioxide 30.8 H (20.0-27.5) mmol/L Est GFR (CKD-EPI)AfAm 59.3 L (60.0-200.0) Est GFR (CKD-EPI)NonAf 51.2 L (60.0-200.0) Glucose 239 H (70-110) mg/dL POC Glucose (mg/dL) 231 H 259 H (70-110) mg/dL Magnesium 1.3 L (1.5-2.4) mg/dL 10/08/22 10/09/22 10/09/22 Range/Units 20:41 05:33 05:55 Chloride (96-109) mmol/L Carbon Dioxide (20.0-27.5) mmol/L Est GFR (CKD-EPI)AfAm (60.0-200.0) Est GFR (CKD-EPI)NonAf (60.0-200.0) Glucose (70-110) mg/dL POC Glucose (mg/dL) 250 H 168 H (70-110) mg/dL Magnesium 1.1 L (1.5-2.4) mg/dL
== END 2022-10-09 15:41 | disposition home or self-care (01) | DRG 293 ==
LOC: EC 17:43 → 6NMEDSUR 22:59 → OBSVTOIN 10-07 11:44
PROVIDERS: ADMIT Internal Medicine; ATTEND Internal Medicine
PROC: 05HC33Z Insertion of Infusion Device into Left Basilic Vein, Percutaneous Approach (ICD-10-PCS; principal; 2022-10-07 21:35)
DX: I11.0 Hypertensive heart disease with heart failure (principal); F43.10 Post-traumatic stress disorder, unspecified; R00.1 Bradycardia, unspecified; I25.10 Atherosclerotic heart disease of native coronary artery without angina pectoris; I42.9 Cardiomyopathy, unspecified; I44.7 Left bundle-branch block, unspecified; I50.9 Heart failure, unspecified; I44.1 Atrioventricular block, second degree; E83.42 Hypomagnesemia; E87.6 Hypokalemia; D86.0 Sarcoidosis of lung; I87.323 Chronic venous hypertension (idiopathic) with inflammation of bilateral lower extremity; M79.7 Fibromyalgia; I27.20 Pulmonary hypertension, unspecified; E87.5 Hyperkalemia; M19.90 Unspecified osteoarthritis, unspecified site; I08.1 Rheumatic disorders of both mitral and tricuspid valves; D86.9 Sarcoidosis, unspecified; L98.491 Non-pressure chronic ulcer of skin of other sites limited to breakdown of skin; M10.9 Gout, unspecified; N76.6 Ulceration of vulva; R32 Unspecified urinary incontinence; Z66 Do not resuscitate; Z79.02 Long term (current) use of antithrombotics/antiplatelets; Z79.84 Long term (current) use of oral hypoglycemic drugs; Z79.899 Other long term (current) drug therapy; Z85.41 Personal history of malignant neoplasm of cervix uteri; Z90.710 Acquired absence of both cervix and uterus; Z95.2 Presence of prosthetic heart valve; Z95.5 Presence of coronary angioplasty implant and graft; Z82.49 Family history of ischemic heart disease and other diseases of the circulatory system; Z88.0 Allergy status to penicillin; Z88.5 Allergy status to narcotic agent; Z88.8 Allergy status to other drugs, medicaments and biological substances; Z79.82 Long term (current) use of aspirin; Z98.42 Cataract extraction status, left eye; Z98.41 Cataract extraction status, right eye
CPT/HCPCS: 36410; 36415; 71046; 76937; 80048; 80053; 81001; 83735; 83880; 84484; 85025; 86038; 86780; 87390; 93005; 93270; 93306; 96365; 96366; 96375; 99285; 99291

== ENCOUNTER 2023-07-09 20:16 | Inpatient (IN) | payer MEDICARE ==
[2023-07-09] MEDS ORDERED: SODIUM CHLORIDE 0.9% 1,000 ML IV ONE (21:08)
[2023-07-09 22:05] LABS: Basophils % (A) 0 %; Eosinophils # (A) 0.1 k/uL (0-0.7); Eosinophils % (A) 1 %; HCT 33.4 % (34.0-46.0); Lymphocytes # (A) 0.7 k/uL (1.0-4.8); Lymphocytes % (A) 7 %; MCH 31.3 pg (25.0-35.0); MCV 94.7 fL (80.0-100.0); Mean Platelet Volume 8.1; Monocytes # (A) 0.4 k/uL (0-1.0); Monocytes % (A) 5 %; Neutrophils # (A) 8.4 k/uL (1.3-7.7); Neutrophils % (A) 86 %; Platelet Count 239 k/uL (150-450); RBC 3.53 m/uL (3.80-5.40); RDW 15.4 % (11.5-15.5); WBC 9.7 k/uL (3.8-10.6)
[2023-07-09 22:11] LABS: Glucose,Whole Blood 312 mg/dL (70-110)
[2023-07-09 22:14] LABS: INR 1.1 (<1.2); Partial Thromboplastin Time 22.6 sec (22.0-30.0); Prothrombin Time 11.2 sec (9.0-12.0)
[2023-07-09 22:16] LABS: ALT 30 U/L (4-34); AST 63 U/L (14-36); African American GFR (CKD) >90 (>60 ml/min/1.73 sqM); Albumin 3.1 g/dL (3.5-5.0); Alkaline Phosphatase 84 U/L (38-126); Anion Gap 11 mmol/L; Blood Urea Nitrogen 18 mg/dL (7-17); Calcium 9.2 mg/dL (8.4-10.2); Carbon Dioxide 23 mmol/L (22-30); Chloride 98 mmol/L (98-107); Creatine Kinase 942 U/L (30-135); Glucose 323 mg/dL (74-99); Non-African American GFR(CKD) >90 (>60 ml/min/1.73 sqM); Potassium 4.1 mmol/L (3.5-5.1); Sodium 132 mmol/L (137-145); Total Bilirubin 0.8 mg/dL (0.2-1.3); Total Protein 6.5 g/dL (6.3-8.2)
[2023-07-09] MEDS ORDERED: HYDROmorphone 1 MG/ML 1 ML SYRINGE IVP STA (22:40)
--- NOTE | 2023-07-09 22:42 | ED ---
General Adult HPI - General Source: patient, RN/, RN notes reviewed Mode of arrival: EMS Limitations: no limitations <Maeve Merchant - Last Filed: 07/10/23 11:51> - History of Present Illness -: unknown Improves with: none Associated Symptoms: denies other symptoms Treatments Prior to Arrival: none <Abdi Whipple - Last Filed: 07/10/23 21:17> - General Chief complaint: Fall Stated complaint: Fall Time Seen by Provider: 07/09/23 20:42 - History of Present Illness Initial comments: 68-year-old female with a past medical history significant for cardiac pacemaker, CHF, fibromyalgia, hypertension, hyperlipidemia, diabetes presents the emergency department via EMS with a chief complaint of fall. She reports up to 5 falls this past week. She denies hitting her head, loss of consciousness. She is complaining of lower back pain. She is also complaining of ulcers to her ankles and bilateral feet. She reports prolonged down time after her fall. Patient reports she had a pacemaker recently placed. She denies dizziness, lightheadedness, headache, nausea, vomiting, abdominal pain, chest pain, shortness of breath. Patient is a poor historian. (Maeve Merchant) This is a 68-year-old female presents here after a fall. Fall with prolonged downtime and weakness concern was unable to get up. Multiple falls recently with increasing weakness. Denies syncope. No headache chest pain shortness breath or abdominal pain (Abdi Whipple) - Related Data Home Medications Medication Instructions Recorded Confirmed Levocetirizine Dihydrochloride 5 mg PO HS 05/21/15 07/09/23 [Xyzal] Aspirin [Adult Low Dose Aspirin EC] 81 mg PO DAILY 05/09/19 07/09/23 Lansoprazole 30 mg PO BID 05/09/19 07/09/23 Latanoprost [Xalatan 0.005%] 1 drop BOTH EYES HS 05/09/19 07/09/23 Simvastatin [Zocor] 40 mg PO DAILY 05/09/19 07/09/23 Clopidogrel [Plavix] 75 mg PO DAILY 10/06/22 07/09/23 Dicyclomine HCl 10 mg PO ACHS 10/06/22 07/09/23 HYDROcodone/APAP 10-325MG [[place] 1 tab PO Q6H PRN 10/06/22 07/09/23 10-325] Insulin Lispro Protamin/Lispro See Protocol SQ AC-TID 10/06/22 07/09/23 [humaLOG MIX 75-25 Kwikpen] Magnesium Oxide [Magox 400] 400 mg PO QID 10/06/22 07/09/23 Metoprolol Succinate (ER) [Toprol 25 mg PO DAILY 10/06/22 07/09/23 XL] Multivitamins, Thera [Multivitamin 1 tab PO DAILY 10/06/22 07/09/23 (formulary)] diazePAM [Valium] 2 mg PO BID PRN 10/06/22 07/09/23 Bumetanide [BUMEX] 1 mg PO BID 07/09/23 07/09/23 Dupilumab [Dupixent Pen] 1 dose SQ DIRECTED 07/09/23 07/09/23 Glimepiride [Amaryl] 2 mg PO AC-BRKFST 07/09/23 07/09/23 Lidocaine 5% Oint [Xylocaine 5% 1 applic TOPICAL BID PRN 07/09/23 07/09/23 Oint] Mupirocin 2% Oint [Bactroban 2% 1 applic TOPICAL TID 07/09/23 07/09/23 Oint] Nystatin 100,000Unit/gm Cream 1 applic TOPICAL BID 07/09/23 07/09/23 [Mycostatin Cream] Pantoprazole [Protonix] 40 mg PO DAILY 07/09/23 07/09/23 Triamcinolone 0.1% Cream [Kenalog 1 applicatio TOPICAL BID 07/09/23 07/09/23 0.1% Cream] Zinc Oxide 20% Oint 1 applic TOPICAL DAILY 07/09/23 07/09/23 Allergies Allergy/AdvReac Type Severity Reaction Status Date / Time metolazone [From Zaroxolyn] AdvReac Rapid Verified 07/09/23 21:37 Heart Rate morphine AdvReac Nausea, Verified 07/09/23 21:37 headache nalbuphine HCl [From Nubain] AdvReac Rapid Verified 07/09/23 21:37 Heart Rate Penicillins AdvReac Yeast Verified 07/09/23 21:37 infection Review of Systems ROS Other: All systems not noted in ROS Statement are negative. <Maeve Merchant - Last Filed: 07/10/23 11:51> ROS Other: All systems not noted in ROS Statement are negative. <Abdi Whipple - Last Filed: 07/10/23 21:17> ROS Statement: Those systems with pertinent positive or pertinent negative responses have been documented in the HPI. Past Medical History Past Medical History: Asthma, Cancer, COPD, Diabetes Mellitus, Eye Disorder, Fibromyalgia, GERD/Reflux, Hyperlipidemia, Hypertension, Musculoskeletal Disorder, Osteoarthritis (OA), Respiratory Disorder, Sleep Apnea/CPAP/BIPAP Additional Past Medical History / Comment(s): CTS-BILAT WRISTS. HX CERVICAL CA-1986. SARCOIDOSIS. DJD. GLAUCOMA& CATARACTS BILAT EYES. GOUT. HIATAL HERNIA. INCONTIENT OF URINE R/T LIMITED MOBILITY. USES C-PAP BUT CURRENTLY NEEDS A NEW ONE. STATES HAS VERY SMALL AIRWAY. USES CANE FOR AMBULATION AT THIS TIME History of Any Multi-Drug Resistant Organisms: None Reported Past Surgical History: Breast Surgery, Hysterectomy Additional Past Surgical History / Comment(s): COLONOSCOPYEGDBRONCHOSCOPY W/B RONCHIAL WASHNUMEROUS CYTS REMOVED FROM SCALP X 2LT BREAST BX x 2, 06-24-15 total lt hip Past Anesthesia/Blood Transfusion Reactions: No Reported Reaction Date of Last Stent Placement:: 06/2022 Past Psychological History: Anxiety, Depression, PTSD Smoking Status: Never smoker Past Alcohol Use History: None Reported Past Drug Use History: None Reported - Past Family History Mother Family Medical History: Deep Vein Thrombosis (DVT) Father History Unknown: Yes Family Medical History: Coronary Artery Disease (CAD) <Maeve Merchant - Last Filed: 07/10/23 11:51> General Exam Limitations: no limitations General appearance: alert, in no apparent distress Head exam: Present: atraumatic, normocephalic, normal inspection Eye exam: Present: normal appearance, PERRL, EOMI. Absent: scleral icterus, conjunctival injection, periorbital swelling ENT exam: Present: normal exam, mucous membranes moist Neck exam: Present: normal inspection. Absent: tenderness, meningismus, lymphadenopathy Respiratory exam: Present: normal lung sounds bilaterally. Absent: respiratory distress, wheezes, rales, rhonchi, stridor Cardiovascular Exam: Present: regular rate, normal rhythm, normal heart sounds. Absent: systolic murmur, diastolic murmur, rubs, gallop, clicks GI/Abdominal exam: Present: soft, normal bowel sounds. Absent: distended, tenderness, guarding, rebound, rigid Extremities exam: Present: normal inspection, full ROM, normal capillary refill. Absent: tenderness, pedal edema, joint swelling, calf tenderness Back exam: Present: normal inspection Neurological exam: Present: alert, oriented X3, CN II-XII intact Psychiatric exam: Present: normal affect, normal mood Skin exam: Present: warm, dry, intact, normal color. Absent: rash <Maeve Merchant - Last Filed: 07/10/23 11:51> General appearance: alert, in no apparent distress Head exam: Present: atraumatic, normocephalic, normal inspection Eye exam: Present: normal appearance, PERRL, EOMI. Absent: scleral icterus, conjunctival injection, periorbital swelling ENT exam: Present: normal exam, mucous membranes moist Neck exam: Present: normal inspection. Absent: tenderness, meningismus, lymphadenopathy Respiratory exam: Present: normal lung sounds bilaterally. Absent: respiratory distress, wheezes, rales, rhonchi, stridor Cardiovascular Exam: Present: normal rhythm, tachycardia, normal heart sounds. Absent: systolic murmur, diastolic murmur, rubs, gallop, clicks GI/Abdominal exam: Present: soft, normal bowel sounds. Absent: distended, tenderness, guarding, rebound, rigid Extremities exam: Present: normal inspection, full ROM, normal capillary refill. Absent: tenderness, pedal edema, joint swelling, calf tenderness Back exam: Present: normal inspection Neurological exam: Present: alert, oriented X3, CN II-XII intact Psychiatric exam: Present: normal affect, normal mood Skin exam: Present: warm, dry, intact, normal color. Absent: rash <Abdi Whipple - Last Filed: 07/10/23 21:17> - General Exam Comments Initial Comments: General: Alert, in no acute distress Head: atraumatic normocephalic. Eyes PERRL, EOMI intact, mucous membranes moist Respiratory: Lungs clear to auscultation bilaterally Cardiovascular: Tachycardic Abdominal: Soft without guarding or rebound Extremities: Normal inspection with full range of motion and normal capillary refill, multiple ulcers to toes, left connor movements with abrasions no active purulent discharge or crepitus Neuroogic: alert and oriented 3, CN II-XII intact, able to ambulate with steady gait Skin: warm dry and intact with normal color (Maeve Merchant) Course <Maeve Merchant - Last Filed: 07/10/23 11:51> <Abdi Whipple - Last Filed: 07/10/23 21:17> Vital Signs 07/09/23 07/09/23 07/10/23 20:20 20:56 00:50 Temperature 99.5 F Pulse Rate 110 H 113 H Respiratory 18 20 Rate Blood Pressure 96/60 133/82 O2 Sat by Pulse 100 95 Oximetry - Reevaluation(s) Reevaluation #1: 07/09/23 23:04 Case signed out to Dr. Whipple Pending imaging results. (Maeve Merchant) 07/10/23 00:29 Medical records reviewed (Abdi Whipple) Reevaluation #2: 07/10/23 00:29 Patient symptoms unchanged (Abdi Whipple) Reevaluation #3: 07/10/23 00:29 Patient informed results questions answered (Abdi Whipple) Reevaluation #4: 07/10/23 00:29 Was pt. sent in by a medical professional or institution (, PA, PRINCIPAL PRODUCT MANAGER, urgent care, hospital, or detention...) When possible be specific @ -no Did you speak to anyone other than the patient for history (EMS, parent, family, police, friend...)? What history was obtained from this source @ -no Did you review nursing and triage notes (agree or disagree)? Why? @ -agree Are old charts reviewed (outside hosp., previous admission, EMS record, old EKG, old radiological studies, urgent care reports/EKG's, detention records)? Report findings @ -yes Differential Diagnosis (chest pain, altered mental status, abdominal pain women, abdominal pain men, vaginal bleeding, weakness, fever, dyspnea, syncope, headache, dizziness, GI bleed, back pain, seizure, CVA, palpatations, mental health, musculoskeletal)? @ -prior EKG interpreted by me (3pts min.). @ -yes X-rays interpreted by me (1pt min.). @ -yes CT interpreted by me (1pt min.). @ -yes U/S interpreted by me (1pt. min.). @ -no What testing was considered but not performed or refused? (CT, X-rays, U/S, labs)? Why? @ -none What meds were considered but not given or refused? Why? @ -none Did you discuss the management of the patient with other professionals ( professionals i.e. DrRamiro, PA, PRINCIPAL PRODUCT MANAGER, lab, RT, psych nurse, social science manager, ux engineer, teacher, court security officer, clinical case manager)? Give summary @ -no Was smoking cessation discussed for >3mins.? @ -no Was critical care preformed (if so, how long)? @ -no Were there social determinants of health that impacted care today? How? (Homelessness, low income, unemployed, alcoholism, drug addiction, transportation, low edu. Level, literacy, decrease access to med. care, prison, rehab)? @ -none Was there de-escalation of care discussed even if they declined (Discuss DNR or withdrawal of care, Hospice)? DNR status @ -no What co-morbidities impacted this encounter? (DM, HTN, Smoking, COPD, CAD, Cancer, CVA, ARF, Chemo, Hep., AIDS, mental health diagnosis, sleep apnea, morbid obesity)? @ -none Was patient admitted / discharged? Hospital course, mention meds given and route, prescriptions, significant lab abnormalities, going to OR and other pertinent info. @ - 68 female with severe pain after fall with prolonged down time. Patient does have mild rhabdomyolysis patient will be admitted for hydration pain c ontrol and PTOT as she does have multiple recent falls lately Admitted Undiagnosed new problem with uncertain prognosis? @ -no Drug Therapy requiring intensive monitoring for toxicity (Heparin, Nitro, Insulin, Cardizem)? @ -no Were any procedures done? @ -no Diagnosis/symptom? @ -Rhabdomyolysis, weakness, dehydration and inability Acute, or Chronic, or Acute on Chronic? @ -Acute Uncomplicated (without systemic symptoms) or Complicated (systemic symptoms)? @ -Complicated Side effects of treatment? @ -no Exacerbation, Progression, or Severe Exacerbation? @ -exacerbation Poses a threat to life or bodily function? How? (Chest pain, [place], [place], pneumonia, PE, COPD, DKA, ARF, appy, cholecystitis, CVA, Diverticulitis, Homicidal, Suicidal, threat to staff... and all critical care pts) @ -yes significant debility with extreme of age (Abdi Whipple) Reevaluation #5: 07/10/23 00:29 Differential Weakness: Hypoglycemia, shock, sepsis, hyponatremia, anemia, infection, [place], ETOH, adverse medicine reaction, overdose, stroke, this is not meant to be an all-inclusive list. (Abdi Whipple) - Consultations Consultation #1: Spoke with sound who agrees to admit this patient (Abdi Whipple) EKG Findings - EKG Comments: EKG Findings:: I interpreted the following: EKG performed at 22:22. Rate 109 bpm electronically paced <Maeve Merchant - Last Filed: 07/10/23 11:51> - EKG Results: EKG: interpreted by ERMD <Abdi Whipple - Last Filed: 07/10/23 21:17> Medical Decision Making - Lab Data Result diagrams: 07/09/23 21:30 07/09/23 21:30 <Maeve Merchant - Last Filed: 07/10/23 11:51> - Lab Data Result diagrams: 07/10/23 12:35 07/10/23 12:35 - EKG Data -: EKG Interpreted by Ga - Radiology Data Radiology results: report reviewed (CT brain CT LS spine negative for acute disease), image reviewed <Abdi Whipple - Last Filed: 07/10/23 21:17> - Medical Decision Making Was pt. sent in by a medical professional or institution (, PA, PRINCIPAL PRODUCT MANAGER, urgent care, hospital, or detention...) When possible be specific @ -[No] Did you speak to anyone other than the patient for history (EMS, parent, family, police, friend...)? What history was obtained from this source @ -, EMS Did you review nursing and triage notes (agree or disagree)? Why? @ -[I reviewed and agree with nursing and triage notes] Were old charts reviewed (outside hosp., previous admission, EMS record, old EKG, old radiological studies, urgent care reports/EKG's, detention records)? Report findings @ -[No old charts were reviewed] Differential Diagnosis (chest pain, altered mental status, abdominal pain women, abdominal pain men, vaginal bleeding, weakness, fever, dyspnea, syncope, headache, dizziness, GI bleed, back pain, seizure, CVA, palpatations, mental health, musculoskeletal)? @ -[not applicable] EKG interpreted by me (3pts min.). @ -[As above] X-rays interpreted by me (1pt min.). @ -[None done] CT interpreted by me (1pt min.). @ -[None done] U/S interpreted by me (1pt. min.). @ -[None done] What testing was considered but not performed or refused? (CT, X-rays, U/S, labs)? Why? @ -[None] What meds were considered but not given or refused? Why? @ -[None] Did you discuss the management of the patient with other professionals (professionals i.e. , PA, PRINCIPAL PRODUCT MANAGER, lab, RT, psych nurse, social science manager, ux engineer, teacher, court security officer, clinical case manager)? Give summary @ -[No] Was smoking cessation discussed for >3mins.? @ -[No] Was critical care preformed (if so, how long)? @ -[No] Were there social determinants of health that impacted care today? How? (Homelessness, low income, unemployed, alcoholism, drug addiction, transportation, low edu. Level, literacy, decrease access to med. care, prison, rehab)? @ -[No] Was there de-escalation of care discussed even if they declined (Discuss DNR or withdrawal of care, Hospice)? DNR status @ -[No] What co-morbidities impacted this encounter? (DM, HTN, Smoking, COPD, CAD, Cancer, CVA, ARF, Chemo, Hep., AIDS, mental health diagnosis, sleep apnea, morbid obesity)? @ -[None] Was patient admitted / discharged? Hospital course, mention meds given and route, prescriptions, significant lab abnormalities, going to OR and other pertinent info. @ -Disposition pending. This is a 68 year-old female who presents the emergency department via EMS the chief complaint of fall. Patient had a thorough history and physical exam performed on the ED. Patient is tachycardic lung sounds clear to auscultation bilaterally abdomen soft and nontender. Patient had laboratory studies performed which revealed WBC 9.7, hemoglobin 11.0 coagulation studies unremarkable sodium 132, potassium 4.1 BUN 18, creatinine 0.61, CK 942, Covid influenza RSV negative Patient was given Dilaudid for pain management. Patient signed out to Dr Whipple., [facility] who assumes care of patient pending imaging results. (Maeve Merchant) 68 female with severe pain after fall with prolonged down time. Patient does have mild rhabdomyolysis patient will be admitted for hydration pain control and PTOT as she does have multiple recent falls lately (Abdi Whipple) - Lab Data Lab Results 07/09/23 07/09/23 07/09/23 Range/Units 00:59 21:30 21:30 WBC 9.7 (3.8-10.6) k/uL RBC 3.53 L (3.80-5.40) m/uL Hgb 11.0 L (11.4-16.0) gm/dL Hct 33.4 L (34.0-46.0) % MCV 94.7 (80.0-100.0) fL MCH 31.3 (25.0-35.0) pg MCHC 33.0 (31.0-37.0) g/dL RDW 15.4 (11.5-15.5) % Plt Count 239 (150-450) k/uL MPV 8.1 Neutrophils % 86 % Lymphocytes % 7 % Monocytes % 5 % Eosinophils % 1 % Basophils % 0 % Neutrophils # 8.4 H (1.3-7.7) k/uL Lymphocytes # 0.7 L (1.0-4.8) k/uL Monocytes # 0.4 (0-1.0) k/uL Eosinophils # 0.1 (0-0.7) k/uL Basophils # 0.0 (0-0.2) k/uL PT 11.2 (9.0-12.0) sec INR 1.1 (<1.2) APTT 22.6 (22.0-30.0) sec Sodium (137-145) mmol/L Potassium (3.5-5.1) mmol/L Chloride (98-107) mmol/L Carbon Dioxide (22-30) mmol/L Anion Gap mmol/L BUN (7-17) mg/dL Creatinine (0.52-1.04) mg/dL Est GFR (CKD-EPI)AfAm (>60 ml/min/1.73 sqM) Est GFR (CKD-EPI)NonAf (>60 ml/min/1.73 sqM) Glucose (74-99) mg/dL POC Glucose (mg/dL) (70-110) mg/dL POC Glu Filler Operator ID Plasma Lactic Acid Nitin 1.8 (0.7-2.0) mmol/L Calcium (8.4-10.2) mg/dL Total Bilirubin (0.2-1.3) mg/dL AST (14-36) U/L ALT (4-34) U/L Alkaline Phosphatase (38-126) U/L Creatine Kinase (30-135) U/L Troponin I (0.000-0.034) ng/mL Total Protein (6.3-8.2) g/dL Albumin (3.5-5.0) g/dL Influenza Type A (PCR) (Not Detectd) Influenza Type B (PCR) (Not Detectd) RSV (PCR) (Not Detectd) SARS-CoV-2 (PCR) (Not Detectd) 07/09/23 07/09/23 07/09/23 Range/Units 21:30 21:30 21:30 WBC (3.8-10.6) k/uL RBC (3.80-5.40) m/uL Hgb (11.4-16.0) gm/dL Hct (34.0-46.0) % MCV (80.0-100.0) fL MCH (25.0-35.0) pg MCHC (31.0-37.0) g/dL RDW (11.5-15.5) % Plt Count (150-450) k/uL MPV Neutrophils % % Lymphocytes % % Monocytes % % Eosinophils % % Basophils % % Neutrophils # (1.3-7.7) k/uL Lymphocytes # (1.0-4.8) k/uL Monocytes # (0-1.0) k/uL Eosinophils # (0-0.7) k/uL Basophils # (0-0.2) k/uL PT (9.0-12.0) sec INR (<1.2) APTT (22.0-30.0) sec Sodium 132 L (137-145) mmol/L Potassium 4.1 (3.5-5.1) mmol/L Chloride 98 (98-107) mmol/L Carbon Dioxide 23 (22-30) mmol/L Anion Gap 11 mmol/L BUN 18 H (7-17) mg/dL Creatinine 0.61 (0.52-1.04) mg/dL Est GFR (CKD-EPI)AfAm >90 (>60 ml/min/1.73 sqM) Est GFR (CKD-EPI)NonAf >90 (>60 ml/min/1.73 sqM) Glucose 323 H (74-99) mg/dL POC Glucose (mg/dL) (70-110) mg/dL POC Glu Filler Operator ID Plasma Lactic Acid Nitin (0.7-2.0) mmol/L Calcium 9.2 (8.4-10.2) mg/dL Total Bilirubin 0.8 (0.2-1.3) mg/dL AST 63 H (14-36) U/L ALT 30 (4-34) U/L Alkaline Phosphatase 84 (38-126) U/L Creatine Kinase 942 H (30-135) U/L Troponin I 0.024 (0.000-0.034) ng/mL Total Protein 6.5 (6.3-8.2) g/dL Albumin 3.1 L (3.5-5.0) g/dL Influenza Type A (PCR) Not Detected (Not Detectd) Influenza Type B (PCR) Not Detected (Not Detectd) RSV (PCR) Not Detected (Not Detectd) SARS-CoV-2 (PCR) Not Detected (Not Detectd) 07/09/23 Range/Units 22:04 WBC (3.8-10.6) k/uL RBC (3.80-5.40) m/uL Hgb (11.4-16.0) gm/dL Hct (34.0-46.0) % MCV (80.0-100.0) fL MCH (25.0-35.0) pg MCHC (31.0-37.0) g/dL RDW (11.5-15.5) % Plt Count (150-450) k/uL MPV Neutrophils % % Lymphocytes % % Monocytes % % Eosinophils % % Basophils % % Neutrophils # (1.3-7.7) k/uL Lymphocytes # (1.0-4.8) k/uL Monocytes # (0-1.0) k/uL Eosinophils # (0-0.7) k/uL Basophils # (0-0.2) k/uL PT (9.0-12.0) sec INR (<1.2) APTT (22.0-30.0) sec Sodium (137-145) mmol/L Potassium (3.5-5.1) mmol/L Chloride (98-107) mmol/L Carbon Dioxide (22-30) mmol/L Anion Gap mmol/L BUN (7-17) mg/dL Creatinine (0.52-1.04) mg/dL Est GFR (CKD-EPI)AfAm (>60 ml/min/1.73 sqM) Est GFR (CKD-EPI)NonAf (>60 ml/min/1.73 sqM) Glucose (74-99) mg/dL POC Glucose (mg/dL) 312 H (70-110) mg/dL POC Glu Filler Operator ID Sammi Callahan Plasma Lactic Acid Nitin (0.7-2.0) mmol/L Calcium (8.4-10.2) mg/dL Total Bilirubin (0.2-1.3) mg/dL AST (14-36) U/L ALT (4-34) U/L Alkaline Phosphatase (38-126) U/L Creatine Kinase (30-135) U/L Troponin I (0.000-0.034) ng/mL Total Protein (6.3-8.2) g/dL Albumin (3.5-5.0) g/dL Influenza Type A (PCR) (Not Detectd) Influenza Type B (PCR) (Not Detectd) RSV (PCR) (Not Detectd) SARS-CoV-2 (PCR) (Not Detectd) Disposition <Maeve Merchant - Last Filed: 07/10/23 11:51> Is patient prescribed a controlled substance at d/c from ED?: No Time of Disposition: 00:25 <Abdi Whipple - Last Filed: 07/10/23 21:17> Clinical Impression: Fall, Rhabdomyolysis, Back pain, Weakness Disposition: ADMITTED IP TO THIS [facility] Condition: Good
--- NOTE | 2023-07-10 | CT ---
EXAMINATION TYPE: CT brain wo con CT DLP: 1173 mGycm, Automated exposure control for dose reduction was used. DATE OF EXAM: 07/09/2023 11:35 PM COMPARISON: None. CLINICAL INDICATION:Female, 68 years old with history of fall, TECHNIQUE: Brain: Axial CT images of the brain were obtained with coronal and sagittal reformats created and rev iewed. Contrast used: None. Oral contrast used: None. FINDINGS: Brain: Extra-axial spaces: No abnormal extra-axial fluid collections. Ventricular system: Dilatation in proportion to cerebral atrophy. Cerebral parenchyma: Cerebral atrophy. No acute intraparenchymal hemorrhage or mass effect. The medina -white junction is well differentiated. Scattered hypoattenuating areas are seen within the white mat ter. Cerebellum: Unremarkable. Mass effect: No evidence of midline shift. Intracranial vasculature: unremarkable Soft tissues: Normal. Calvarium/osseous structures: No depressed skull fracture. Paranasal sinuses and mastoid air cells: Mild scattered paranasal sinus disease. Visualized orbits: Orbital contents are intact. IMPRESSION: 1. No acute intracranial process. 2. Nonspecific white matter changes, likely secondary to chronic small vessel ischemic disease.
--- NOTE | 2023-07-10 00:05 | CT ---
EXAMINATION TYPE: CT lumbar spine wo con CT DLP: mGycm, Automated exposure control for dose reduction was used. DATE OF EXAM: 07/09/2023 11:36 PM COMPARISON: . CLINICAL INDICATION:Female, 68 years old with history of fall/ low back pain; [facility], TECHNIQUE: Multiple axial images were obtained from the midportion of T11 through the sacroiliac radha nts. Soft tissue and bone windows in coronal and sagittal planes were obtained and reviewed. 3-D ref ormats of the bones were created on a separate workstation and submitted for review. Contrast used: mL of , none. Oral contrast used: none. FINDINGS: Alignment: There are 5 lumbar type vertebral bodies. Grade 1 anterolisthesis of L4 on L5. Bone: Multilevel degeneration changes throughout the spine. There is no evidence of fracture. Osteoph ytes, disc space narrowing vacuum disc phenomenon and facet joint arthropathy are present. There is t ransitional vertebrae with hypoplastic 12th ribs bilaterally. Stents of degeneration changes are seen throughout the transitional vertebrae. Pseudoarthrosis of the spinous processes. Discs: T12-L1: No spinal canal or neural foraminal stenosis is identified. L1-L2: Facet joint arthropathy and disc bulging result with mild spinal canal stenosis and mild bilat eral neural foraminal stenosis. L2-L3: Facet joint arthropathy and disc bulging result with moderate spinal canal stenosis and mild b ilateral neural foraminal stenosis. L3-L4: Facet joint arthropathy and disc bulging result with moderate spinal canal stenosis and mild t o moderate bilateral neural foraminal stenosis. L4-L5: Grade 1 anterolisthesis with moderate to severe spinal canal stenosis. Facet joint arthropathy with at least moderate bilateral neural foraminal stenosis. L5-S1: Facet joint arthropathy and disc bulging result with mild spinal canal stenosis and mild bilat eral neural foraminal stenosis. Other: Scattered colonic diverticula. Gallstones layering in the gallbladder. IMPRESSION: 1. No evidence for spinal fracture. 2. L4-L5 Grade 1 anterolisthesis with moderate to severe spinal canal stenosis. Facet joint arthropat hy with at least moderate bilateral neural foraminal stenosis. Additional moderate spinal canal steno sis at L3-L4. 3. Findings suggestive of Baastrup's disease. 4. Cholelithiasis 5. Colonic diverticulosis.
[2023-07-10] MEDS ORDERED: NALOXONE 0.4 MG/ML 1 ML VIAL IV PRN (00:26)
[2023-07-10] MEDS ORDERED: ONDANSETRON 4 MG/2 ML VIAL IVP PRN (00:26)
[2023-07-10] MEDS ORDERED: SODIUM CHLORIDE 0.9% 1,000 ML IV STA (00:30)
[2023-07-10] MEDS: SODIUM CHLORIDE 0.9% 1,000 ML IV SCH ×3 (01:02→23:01)
--- NOTE | 2023-07-10 04:30 | P.HPIM ---
History of Present Illness H&P Date: 07/10/23 Patient is a 68-year-old female with a PMH of CAD status post stents, status post pacemaker placement, systolic CHF EF 45-50%, status post aortic valve replacement, type II DM, chronic bilateral diabetic foot ulcers, hypertension, hyperlipidemia, who presents to the emergency room after a fall. Patient endorsed that she had been falling at home for more than usual over the past few weeks. She reports falling roughly 24 hours prior to arrival at the emergency room and that her was not able to help her up. He apparently refused to call for further help and that she was laying on the ground for 20 hours. She reports sliding down the ground without experiencing head trauma or loss of consciousness. She reports feeling fatigued and generalized weakness at the time of interview. Denied experiencing chest discomfort, shortness of breath, fever, chills, cough, nausea, vomiting. In the emergency room, laboratory evaluation was remarkable for sodium 132, CK 942, glucose 323, AST 63, troponin 0.024. CT lumbar spine revealed L4 to L5 severe spinal canal stenosis with findings suggestive of Baastrup's disease and colonic diverticulosis. CT brain was unremarkable. EKG revealed ventricular paced rhythm at 109 bpm. ED documentation reviewed and case discussed with ED provider. Review of systems: Pertinent positives and negatives as discussed in HPI, a complete review of systems was performed and all other systems are negative. Physical examination: Vital signs reviewed General: non toxic, no distress, appears older than stated age, morbidly obese Derm: Left lateral foot unstageable ulcer with laceration, right lateral foot unstageable ulcer 4 cm, warm Head: atraumatic, normocephalic, symmetric Eyes: EOMI, no lid lag, anicteric sclera, pupils equal round reactive to light ENT: Nose and ears atraumatic Neck: No cervical lymphadenopathy, trachea midline, supple Mouth: no lip lesion, mucus membranes moist Cardiovascular: S1S2 reg, no murmur, positive dorsalis pedis pulse bilateral, no edema Lungs: CTA bilateral, no rhonchi, no rales, no accessory muscle use Abdominal: soft, nontender to palpation, no guarding Ext: muscle strength 3 out of 5 in all 4 extremities grossly, no gross muscle atrophy, no contractures, Neuro: CN II-XI grossly intact, no gross focal neuro deficits Psych: Alert, oriented, appropriate affect Assessment: Rhabdomyolysis Debility Diabetic foot ulcers Chronic conditions: CAD, CHF, type II DM, hypertension, hyperlipidemia Imaging: CT lumbar spine revealed L4 to L5 severe spinal canal stenosis with findings suggestive of Baastrup's disease and colonic diverticulosis. CT brain was unremarkable. EKG revealed ventricular paced rhythm at 109 bpm. Data Review: In the emergency room, laboratory evaluation was remarkable for sodium 132, glucose 323, AST 63, troponin 0.024 Plan: Judicious use of IV fluids in setting of history of CHF Hold home Bumex dose for now Monitor CK levels PT consult Wound care consult Insulin sliding scale and blood glucose monitoring Continue with home meds DVT prophylaxis: Lovenox Subq The patient is admitted with an anticipated greater than 2 midnight stay for rishi luation of debility CODE STATUS: Full Code Discussed with: Patient Anticipated discharge place: Home Past Medical History Past Medical History: Asthma, Cancer, COPD, Diabetes Mellitus, Eye Disorder, Fibromyalgia, GERD/Reflux, Hyperlipidemia, Hypertension, Musculoskeletal Disorder, Osteoarthritis (OA), Respiratory Disorder, Sleep Apnea/CPAP/BIPAP Additional Past Medical History / Comment(s): CTS-BILAT WRISTS. HX CERVICAL CA- 1986. SARCOIDOSIS. DJD. GLAUCOMA& CATARACTS BILAT EYES. GOUT. HIATAL HERNIA. INCONTIENT OF URINE R/T LIMITED MOBILITY. USES C-PAP BUT CURRENTLY NEEDS A NEW ONE. STATES HAS VERY SMALL AIRWAY. USES CANE FOR AMBULATION AT THIS TIME History of Any Multi-Drug Resistant Organisms: None Reported Past Surgical History: Breast Surgery, Hysterectomy Additional Past Surgical History / Comment(s): COLONOSCOPYEGDBRONCHOSCOPY W/BRON CHIAL WASHNUMEROUS CYTS REMOVED FROM SCALP X 2LT BREAST BX x 206-24-15 total lt hip Past Anesthesia/Blood Transfusion Reactions: No Reported Reaction Date of Last Stent Placement:: 06/2022 Past Psychological History: Anxiety, Depression, PTSD Smoking Status: Never smoker Past Alcohol Use History: None Reported Past Drug Use History: None Reported - Past Family History Mother Family Medical History: Deep Vein Thrombosis (DVT) Father History Unknown: Yes Family Medical History: Coronary Artery Disease (CAD) Medications and Allergies Home Medications Medication Instructions Recorded Confirmed Type Levocetirizine Dihydrochloride 5 mg PO HS 05/21/15 07/09/23 History [Xyzal] Aspirin [Adult Low Dose Aspirin EC] 81 mg PO DAILY 05/09/19 07/09/23 History Lansoprazole 30 mg PO BID 05/09/19 07/09/23 History Latanoprost [Xalatan 0.005%] 1 drop BOTH EYES HS 05/09/19 07/09/23 History Simvastatin [Zocor] 40 mg PO DAILY 05/09/19 07/09/23 History Clopidogrel [Plavix] 75 mg PO DAILY 10/06/22 07/09/23 History Dicyclomine HCl 10 mg PO ACHS 10/06/22 07/09/23 History HYDROcodone/APAP 10-325MG [[place] 1 tab PO Q6H PRN 10/06/22 07/09/23 History 10-325] Insulin Lispro Protamin/Lispro See Protocol SQ AC-TID 10/06/22 07/09/23 History [humaLOG MIX 75-25 Kwikpen] Magnesium Oxide [Magox 400] 400 mg PO QID 10/06/22 07/09/23 History Metoprolol Succinate (ER) [Toprol 25 mg PO DAILY 10/06/22 07/09/23 History XL] Multivitamins, Thera [Multivitamin 1 tab PO DAILY 10/06/22 07/09/23 History (formulary)] diazePAM [Valium] 2 mg PO BID PRN 10/06/22 07/09/23 History Bumetanide [BUMEX] 1 mg PO BID 07/09/23 07/09/23 History Dupilumab [Dupixent Pen] 1 dose SQ DIRECTED 07/09/23 07/09/23 History Glimepiride [Amaryl] 2 mg PO AC-BRKFST 07/09/23 07/09/23 History Lidocaine 5% Oint [Xylocaine 5% 1 applic TOPICAL BID PRN 07/09/23 07/09/23 History Oint] Mupirocin 2% Oint [Bactroban 2% 1 applic TOPICAL TID 07/09/23 07/09/23 History Oint] Nystatin 100,000Unit/gm Cream 1 applic TOPICAL BID 07/09/23 07/09/23 History [Mycostatin Cream] Pantoprazole [Protonix] 40 mg PO DAILY 07/09/23 07/09/23 History Triamcinolone 0.1% Cream [Kenalog 1 applicatio TOPICAL BID 07/09/23 07/09/23 History 0.1% Cream] Zinc Oxide 20% Oint 1 applic TOPICAL DAILY 07/09/23 07/09/23 History Allergies Allergy/AdvReac Type Severity Reaction Status Date / Time metolazone [From Zaroxolyn] AdvReac Rapid Verified 07/09/23 21:37 Heart Rate morphine AdvReac Nausea, Verified 07/09/23 21:37 headache nalbuphine HCl [From Nubain] AdvReac Rapid Verified 07/09/23 21:37 Heart Rate Penicillins AdvReac Yeast Verified 07/09/23 21:37 infection Physical Exam Vitals: Vital Signs Temp Pulse Resp BP Pulse Ox 07/10/23 00:50 113 H 20 133/82 95 07/09/23 20:56 110 H 100 07/09/23 20:20 99.5 F 18 96/60 Intake and Output 07/09/23 07/09/23 07/10/23 14:59 22:59 06:59 Other: Weight 132.449 kg Results CBC & Chem 7: 07/09/23 21:30 07/09/23 21:30 Labs: Abnormal Lab Results - Last 24 Hours (Table) 07/09/23 07/09/23 07/09/23 Range/Units 21:30 21:30 22:04 RBC 3.53 L (3.80-5.40) m/uL Hgb 11.0 L (11.4-16.0) gm/dL Hct 33.4 L (34.0-46.0) % Neutrophils # 8.4 H (1.3-7.7) k/uL Lymphocytes # 0.7 L (1.0-4.8) k/uL Sodium 132 L (137-145) mmol/L BUN 18 H (7-17) mg/dL Glucose 323 H (74-99) mg/dL POC Glucose (mg/dL) 312 H (70-110) mg/dL AST 63 H (14-36) U/L Creatine Kinase 942 H (30-135) U/L Albumin 3.1 L (3.5-5.0) g/dL
[2023-07-10] MEDS: MORPHINE SULFATE 4 MG/ML SYRINGE IV PRN (06:04)
[2023-07-10 06:38] LABS: Glucose,Whole Blood 279 mg/dL (70-110)
[2023-07-10] MEDS ORDERED: SODIUM CHLORIDE 0.9% 1,000 ML IV ONE (06:45)
[2023-07-10] MEDS ORDERED: PANTOPRAZOLE 40 MG TABLET PO SCH (07:30)
[2023-07-10] MEDS: INSULIN ASPART (NovoLOG) 100 UNIT/ML VIAL SQ SCH ×4 (07:36→23:00)
[2023-07-10] MEDS: ASPIRIN 81 MG PO SCH (07:36)
[2023-07-10] MEDS: METOPROLOL SUCCINATE (ER) 25 MG TAB.ER.24H PO SCH (07:36)
[2023-07-10] MEDS: ATORVASTATIN 20 MG TAB PO SCH (07:36)
[2023-07-10] MEDS: ENOXAPARIN 40 MG/0.4 ML SYRINGE SQ SCH (07:36)
[2023-07-10] MEDS: CLOPIDOGREL 75 MG TAB PO SCH (07:36)
[2023-07-10] MEDS ORDERED: BUMETANIDE 1 MG TAB PO SCH (09:00)
[2023-07-10 11:28] LABS: Appearance,Urine Clear (Clear); Bilirubin,Urine Negative (Negative); Blood,Urine Negative (Negative); Color,Urine Yellow; Glucose,Urine (UA) 4+ (Negative); Ketones,Urine 1+ (Negative); Leukocyte Esterase,Urine Negative (Negative); Nitrite,Urine Negative (Negative); PH, Urine 5.5 (5.0-8.0); Protein,Urine Trace (Negative); Specific Gravity,Urine 1.017 (1.001-1.035); Urobilinogen,Urine <2.0 mg/dL (<2.0)
[2023-07-10 11:44] LABS: Glucose,Whole Blood 219 mg/dL (70-110)
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
[2023-07-10 12:55] LABS: HCT 30.3 % (34.0-46.0); HGB 9.8 gm/dL (11.4-16.0); Hypochromasia Slight; MCH 31.4 pg (25.0-35.0); MCHC 32.5 g/dL (31.0-37.0); MCV 96.9 fL (80.0-100.0); Mean Platelet Volume 8.1; Platelet Count 212 k/uL (150-450); RBC 3.13 m/uL (3.80-5.40); RDW 15.5 % (11.5-15.5); WBC 6.8 k/uL (3.8-10.6)
[2023-07-10 13:14] LABS: ALT 30 U/L (4-34); AST 73 U/L (14-36); African American GFR (CKD) >90 (>60 ml/min/1.73 sqM); Albumin 2.7 g/dL (3.5-5.0); Albumin/Globulin Ratio 0.8; Alkaline Phosphatase 69 U/L (38-126); Anion Gap 8 mmol/L; Blood Urea Nitrogen 13 mg/dL (7-17); Calcium 8.6 mg/dL (8.4-10.2); Carbon Dioxide 23 mmol/L (22-30); Chloride 103 mmol/L (98-107); Globulin 3.2 g/dL; Glucose 212 mg/dL (74-99); Non-African American GFR(CKD) >90 (>60 ml/min/1.73 sqM); Potassium 3.5 mmol/L (3.5-5.1); Sodium 134 mmol/L (137-145); Total Bilirubin 0.5 mg/dL (0.2-1.3); Total Protein 5.9 g/dL (6.3-8.2)
[2023-07-10 13:29] LABS: Creatine Kinase 1005 U/L (30-135)
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
[2023-07-10 17:07] LABS: Glucose,Whole Blood 226 mg/dL (70-110)
[2023-07-10] MEDS: PANTOPRAZOLE 40 MG TABLET PO SCH (17:56)
[2023-07-10 21:18] LABS: Glucose,Whole Blood 204 mg/dL (70-110)
[2023-07-10] MEDS: LATANOPROST 0.005% OPHTH DROPS 2.5 ML BTL BOTH EYES SCH (23:00)
[2023-07-11 06:15] LABS: Glucose,Whole Blood 140 mg/dL (70-110)
[2023-07-11] MEDS: PANTOPRAZOLE 40 MG TABLET PO SCH ×2 (06:18→15:49)
[2023-07-11] MEDS: INSULIN ASPART (NovoLOG) 100 UNIT/ML VIAL SQ SCH ×4 (06:18→22:44)
[2023-07-11] MEDS: ATORVASTATIN 20 MG TAB PO SCH (09:05)
[2023-07-11] MEDS: ENOXAPARIN 40 MG/0.4 ML SYRINGE SQ SCH (09:05)
[2023-07-11] MEDS: ASPIRIN 81 MG PO SCH (09:05)
[2023-07-11] MEDS: METOPROLOL SUCCINATE (ER) 25 MG TAB.ER.24H PO SCH (09:05)
[2023-07-11] MEDS: CLOPIDOGREL 75 MG TAB PO SCH (09:05)
--- NOTE | 2023-07-11 09:17 | P.CNOR ---
History of Present Illness - [facility] Consult date: 07/11/23 Requesting physician: Lissette Patino Consult reason: low back pain, other (Lumbar severe spinal stenosis) History of present illness: Patient is a very pleasant 68-year-old female who is seen exam of the bedside for further evaluation of her lumbar spine. She was previously seen at our office in outpatient setting in 2018. She is known to have significant degenerative change at her lumbar spine most significant at L3-4 and L4-5. When we saw her previously, she was a candidate for surgical intervention at that time. She states she has also followed with other providers in regards to her spine since that time and multiple times has been told she is a surgical carlos te. She states she had been told she might not have significant benefit from the surgery and may not survive surgical intervention given her significant other medical diagnoses. She states because of this she has avoided all surgical intervention at her lumbar spine. She states today that given her overall health and other comorbidities, she does not feel surgical intervention at her lumbar spine is a good option for her. She would be willing to continue with conservative treatment options. She has follow-up with Dr. Patel in pain management in the outpatient setting previously. She would be willing to follow with him again. She states she does fall frequently as her legs feel weak and unstable give out on her. She is unsure when they will give out on her. She feels generally weak in her lower extremities. Her symptoms have not changed recently. Her symptoms have been chronic and ongoing. She does admit to some chronic low back pain. She has not had any exacerbation of her chronic pain. Her pain is localized to her lumbar spine. She is not complaining of hip or lower extremity radicular pain. She states she does utilize a cane or walker to aid in ambulation. She has been managing her symptoms for years. She recently had a pacemaker placed. She also has a history of aortic valve replacement. She is unable to have MRI imaging. She states she does have chronic wounds of her lower extremities and has followed with treatment with a child protective services specialist in the outpatient setting. More recently she has had ulcers to her legs, buttock, and genital region. She st ates she was evaluated for her genital region ulcers less than 3 weeks ago and states she could not get adequate treatment. Wound care has currently been consulted. Her left foot is currently wrapped. There is a foul odor in the room from her ulcers. She does admit to the diabetes mellitus with change in sensation chronically in her lower extremities. She states she does feel pain in lower extremities with light palpation and also admits to reduce sensation with palpation. She is resting comfortably in bed with her Castro catheter intact. She is awake, alert, oriented and answering questions well. [place] with plans to move down towards [facility]. She may plan to transfer care that way if she is able to move. She has a history of a left total hip arthroplasty performed by Dr. Aj in 2014. At her presentation to the emergency department it was reported the patient had been lying in home on the floor for around 20 hours. Past Medical History Past Medical History: Asthma, Cancer, COPD, Diabetes Mellitus, Eye Disorder, Fibromyalgia, GERD/Reflux, Hyperlipidemia, Hypertension, Musculoskeletal Disorder, Osteoarthritis (OA), Respiratory Disorder, Sleep Apnea/CPAP/BIPAP Additional Past Medical History / Comment(s): CTS-BILAT WRISTS. HX CERVICAL CA- 1986. SARCOIDOSIS. DJD. GLAUCOMA& CATARACTS BILAT EYES. GOUT. HIATAL HERNIA. INCONTIENT OF URINE R/T LIMITED MOBILITY. USES C-PAP BUT CURRENTLY NEEDS A NEW ONE. STATES HAS VERY SMALL AIRWAY. USES CANE FOR AMBULATION AT THIS TIME History of Any Multi-Drug Resistant Organisms: None Reported Past Surgical History: Breast Surgery, Hysterectomy Additional Past Surgical History / Comment(s): COLONOSCOPYEGDBRONCHOSCOPY W/BRONCHIAL WASHNUMEROUS CYTS REMOVED FROM SCALP X 2LT BREAST BX x 2, 06-24-15 total lt hip Past Anesthesia/Blood Transfusion Reactions: No Reported Reaction Date of Last Stent Placement:: 06/2022 Past Psychological History: Anxiety, Depression, PTSD Smoking Status: Never smoker Past Alcohol Use History: None Reported Past Drug Use History: None Reported - Past Family History Mother Family Medical History: Deep Vein Thrombosis (DVT) Father History Unknown: Yes Family Medical History: Coronary Artery Disease (CAD) Medications and Allergies Home Medications Medication Instructions Recorded Confirmed Type Levocetirizine Dihydrochloride 5 mg PO HS 05/21/15 07/09/23 History [Xyzal] Aspirin [Adult Low Dose Aspirin EC] 81 mg PO DAILY 05/09/19 07/09/23 History Lansoprazole 30 mg PO BID 05/09/19 07/09/23 History Latanoprost [Xalatan 0.005%] 1 drop BOTH EYES HS 05/09/19 07/09/23 History Simvastatin [Zocor] 40 mg PO DAILY 05/09/19 07/09/23 History Clopidogrel [Plavix] 75 mg PO DAILY 10/06/22 07/09/23 History Dicyclomine HCl 10 mg PO ACHS 10/06/22 07/09/23 History HYDROcodone/APAP 10-325MG [[place] 1 tab PO Q6H PRN 10/06/22 07/09/23 History 10-325] Insulin Lispro Protamin/Lispro See Protocol SQ AC-TID 10/06/22 07/09/23 History [humaLOG MIX 75-25 Kwikpen] Magnesium Oxide [Magox 400] 400 mg PO QID 10/06/22 07/09/23 History Metoprolol Succinate (ER) [Toprol 25 mg PO DAILY 10/06/22 07/09/23 History XL] Multivitamins, Thera [Multivitamin 1 tab PO DAILY 10/06/22 07/09/23 History (formulary)] diazePAM [Valium] 2 mg PO BID PRN 10/06/22 07/09/23 History Bumetanide [BUMEX] 1 mg PO BID 07/09/23 07/09/23 History Dupilumab [Dupixent Pen] 1 dose SQ DIRECTED 07/09/23 07/09/23 History Glimepiride [Amaryl] 2 mg PO AC-BRKFST 07/09/23 07/09/23 History Lidocaine 5% Oint [Xylocaine 5% 1 applic TOPICAL BID PRN 07/09/23 07/09/23 History Oint] Mupirocin 2% Oint [Bactroban 2% 1 applic TOPICAL TID 07/09/23 07/09/23 History Oint] Nystatin 100,000Unit/gm Cream 1 applic TOPICAL BID 07/09/23 07/09/23 History [Mycostatin Cream] Pantoprazole [Protonix] 40 mg PO DAILY 07/09/23 07/09/23 History Triamcinolone 0.1% Cream [Kenalog 1 applicatio TOPICAL BID 07/09/23 07/09/23 History 0.1% Cream] Zinc Oxide 20% Oint 1 applic TOPICAL DAILY 07/09/23 07/09/23 History Allergies Allergy/AdvReac Type Severity Reaction Status Date / Time metolazone [From Zaroxolyn] AdvReac Rapid Verified 07/09/23 21:37 Heart Rate morphine AdvReac Nausea, Verified 07/09/23 21:37 headache nalbuphine HCl [From Nubain] AdvReac Rapid Verified 07/09/23 21:37 Heart Rate Penicillins AdvReac Yeast Verified 07/09/23 21:37 infection Physical Examination Physical exam: Patient is awake, alert, and oriented 3 Vital signs stable Adequate chest excursion with deep inspiration and expiration Examination of lumbar spine reveals skin is intact with no abrasions, lacerations, or bruises; no erythema, purulence or signs of infection Some pain with palpation along the midline of the lumbar spine Dorsiflexion, plantarflexion, and extensor hallucis longus positive sustained bilaterally Sensitivity to palpation over the bilateral lower extremities Evidence of some ulcerated wound over the bilateral lower extremities Left foot is currently wrapped and wound dressing Patient is able to perform some range of motion of bilateral lower extremities independently Castro catheter intact Foul odor at the bedside due to ulcerations Results Pertinent studies: CT of the lumbar spine taken on 07/09/2023: L1-2 severe degenerative disc disea se with facet joint arthropathy and disc bulging with mild central canal stenosis and mild bilateral foraminal stenosis; L2-3 disc bulging and facet joint arthropathy with moderate central canal stenosis and bilateral mild neural foraminal stenosis; L3-4 degenerative disc disease, disc bulging, and facet joint arthropathy with moderate to severe central canal stenosis and mild to moderate bilateral neural foraminal stenosis; L4-5 spondylolisthesis, degenerative disc disease, and facet joint arthropathy resulting in severe central canal stenosis with moderate bilateral neural foraminal stenosis; L5-S1 facet joint arthropathy and disc bulging with mild spinal canal stenosis and mild neural foraminal stenosis; no compression fracture deformity - Labs Labs: Abnormal Lab Results - Last 24 Hours (Table) 07/10/23 07/10/23 07/10/23 Range/Units 11:20 11:42 12:35 RBC 3.13 L (3.80-5.40) m/uL Hgb 9.8 L (11.4-16.0) gm/dL Hct 30.3 L (34.0-46.0) % Sodium (137-145) mmol/L Creatinine (0.52-1.04) mg/dL Glucose (74-99) mg/dL POC Glucose (mg/dL) 219 H (70-110) mg/dL AST (14-36) U/L Creatine Kinase (30-135) U/L Total Protein (6.3-8.2) g/dL Albumin (3.5-5.0) g/dL Urine Protein Trace H (Negative) Urine Glucose (UA) 4+ H (Negative) Urine Ketones 1+ H (Negative) 07/10/23 07/10/23 07/10/23 Range/Units 12:35 17:06 21:17 RBC (3.80-5.40) m/uL Hgb (11.4-16.0) gm/dL Hct (34.0-46.0) % Sodium 134 L (137-145) mmol/L Creatinine 0.48 L (0.52-1.04) mg/dL Glucose 212 H (74-99) mg/dL POC Glucose (mg/dL) 226 H 204 H (70-110) mg/dL AST 73 H (14-36) U/L Creatine Kinase 1005 H* (30-135) U/L Total Protein 5.9 L (6.3-8.2) g/dL Albumin 2.7 L (3.5-5.0) g/dL Urine Protein (Negative) Urine Glucose (UA) (Negative) Urine Ketones (Negative) 07/11/23 Range/Units 06:14 RBC (3.80-5.40) m/uL Hgb (11.4-16.0) gm/dL Hct (34.0-46.0) % Sodium (137-145) mmol/L Creatinine (0.52-1.04) mg/dL Glucose (74-99) mg/dL POC Glucose (mg/dL) 140 H (70-110) mg/dL AST (14-36) U/L Creatine Kinase (30-135) U/L Total Protein (6.3-8.2) g/dL Albumin (3.5-5.0) g/dL Urine Protein (Negative) Urine Glucose (UA) (Negative) Urine Ketones (Negative) H & H 07/09/23 07/10/23 Range/Units 21:30 12:35 Hgb 11.0 L 9.8 L (11.4-16.0) gm/dL Hct 33.4 L 30.3 L (34.0-46.0) % Coagulation 07/09/23 Range/Units 21:30 INR 1.1 (<1.2) Result Diagrams: 07/10/23 12:35 07/10/23 12:35 Assessment and Plan Assessment: Assessment: L3-4 and L4-5 severe spinal stenosis L3-4 slight spondylolisthesis L4-5 grade I spondylolisthesis Chronic low back pain Frequent falls Neurogenic claudication Lumbar facet arthropathy Lumbar degenerative disc disease History left total hip arthroplasty in 2014 Multiple ulcers over the bilateral lower extremities, buttock, and groin Diabetes mellitus Recent pacemaker placement Coronary artery disease with history of aortic valve replacement and cardiac stenting Dyslipidemia History sarcoidosis Hypertension COPD Fibromyalgia Incontinence (1) Lumbar spinal stenosis Current Visit: Yes Status: Acute Code(s): M48.061 - SPINAL STENOSIS, LUMBAR REGION WITHOUT NEUROGENIC APPLE SNOMED Code(s): 10968363 (2) Neurogenic claudication Current Visit: Yes Status: Acute Code(s): R29.818 - OTHER SYMPTOMS AND SIGNS INVOLVING THE NERVOUS SYSTEM SNOMED Code(s): 798459637 (3) Spondylolisthesis, lumbar region Current Visit: Yes Status: Acute Code(s): M43.16 - SPONDYLOLISTHESIS, LUMBAR REGION SNOMED Code(s): 962668859284742 (4) Lumbar degenerative disc disease Current Visit: Yes Status: Acute Code(s): M51.36 - OTHER INTERVERTEBRAL DISC DEGENERATION, LUMBAR REGION SNOMED Code(s): 15944367 (5) Lumbar facet arthropathy Current Visit: Yes Status: Acute Code(s): M47.816 - SPONDYLOSIS W/O MYELOPATHY OR RADICULOPATHY, LUMBAR REGION SNOMED Code(s): 956566134 (6) Frequent falls Current Visit: Yes Status: Acute Code(s): R29.6 - REPEATED FALLS SNOMED Code(s): 027170023 (7) Chronic low back pain Current Visit: Yes Status: Acute Code(s): M54.50 - LOW BACK PAIN, UNSPECIFI ED; G89.29 - OTHER CHRONIC PAIN SNOMED Code(s): 391143027 (8) Lower extremity ulceration Current Visit: Yes Status: Acute Code(s): L97.909 - NON-PRS CHRONIC ULC UNSP PRT OF UNSP LOW LEG W UNSP SEVERITY SNOMED Code(s): 55122210 (9) Diabetes mellitus Current Visit: Yes Status: Acute Code(s): E11.9 - TYPE 2 DIABETES MELLITUS WITHOUT COMPLICATIONS SNOMED Code(s): 27466911 (10) History of sarcoidosis Current Visit: Yes Status: Acute Code(s): Z86.2 - PRSNL HISTORY OF DIS OF THE BLD/BLD-FORM ORG/IMMUN [facility] SNOMED Code(s): 205703180 (11) Hypertension Current Visit: Yes Status: Acute Code(s): I10 - ESSENTIAL (PRIMARY) HYPERTENSION SNOMED Code(s): 24819247 (12) COPD (chronic obstructive pulmonary disease) Current Visit: Yes Status: Acute Code(s): J44.9 - CHRONIC OBSTRUCTIVE PU LMONARY DISEASE, UNSPECIFIED SNOMED Code(s): 40012203 (13) Fibromyalgia Current Visit: Yes Status: Acute Code(s): M79.7 - FIBROMYALGIA SNOMED Code(s): 978731223 (14) Incontinence Current Visit: Yes Status: Acute Code(s): R32 - UNSPECIFIED URINARY INCON TINENCE SNOMED Code(s): 56964095 (15) Coronary artery disease Current Visit: Yes Status: Acute Code(s): I25.10 - ATHSCL HEART DISEASE OF [place] CORONARY ARTERY W/O ANG PCTRS SNOMED Code(s): 37828725 (16) History of permanent cardiac pacemaker placement Current Visit: Yes Status: Acute Code(s): Z95.0 - PRESENCE OF CARDIAC PACEMAKER SNOMED Code(s): 466265830 (17) H/O heart artery stent Current Visit: Yes Status: Acute Code(s): Z95.5 - PRESENCE OF CORONARY ANGIOPLASTY IMPLANT AND GRAFT SNOMED Code(s): 251830438 (18) Aortic valve replaced Current Visit: Yes Status: Acute Code(s): Z95.2 - PRESENCE OF PROSTHETIC HEART VALVE SNOMED Code(s): 6502408642133 (19) History of total left hip arthroplasty Current Visit: Yes Status: Acute Code(s): Z96.642 - PRESENCE OF LEFT ARTIFICIAL HIP JOINT SNOMED Code(s): 200763967228 Plan: Plan: 1. Patient is a very pleasant 68-year-old female who is seen exam of the bedside for further evaluation of her lumbar spine. She was previously seen at our office in outpatient setting in 2018. She is known to have significant degenerative change at her lumbar spine most significant at L3-4 and L4-5. When we saw her previously, she was a candidate for surgical intervention at that time. She states she has also followed with other providers in regards to her spine since that time and multiple times has been told she is a surgical candidate. She states she had been told she might not have significant benefit from the surgery and may not survive surgical intervention given her significant other medical diagnoses. She states because of this she has avoided all surgical intervention at her lumbar spine. She states today that given her overall health and other comorbidities, she does not feel surgical intervention at her lumbar spine is a good option for her. Her symptoms have not changed recently. Her symptoms have been chronic and ongoing. Her pain is localized to her lumbar spine currently. She is not experiencing hip pain or lower extremity radiculopathy. She has been managing her symptoms for years. She would be willing to continue with conservative treatment options. She has follow-up with Dr. Patel in pain management in the outpatient setting previously. She would be willing to follow with him again. We did discuss she does have significant spinal stenosis at both L3-4 and L4-5 and if she were to fail all conservative treatment options, was medically stable, medically cleared, and wanted to proceed forward with surgical intervention, she would be a candidate for surgical intervention. She states again at the bedside she declines any surgical intervention at her lumbar spine. Currently, we'll plan to have her follow up with Dr. Patel in pain management in the outpatient setting for further evaluation. She'll plan to keep his appointment as long as she continues to live locally. If she does sell her house and moves closer to [facility], she may consider further evaluation with pain management there. We did discuss she should continue to utilize a walker or cane to aid in ambulation. Currently, from orthopedic spine standpoint, patient is clear for discharge. We will plan to have her follow up in outpatient setting on as-needed basis. 2. Patient will continue be seen and examined by other medical providers including medicine and wound care Time with Patient: Greater than 30 (Including obtaining history, physical examination, reviewing of imaging, and dictation.)
[2023-07-11 10:26] LABS: ALT 32 U/L (4-34); AST 67 U/L (14-36); African American GFR (CKD) >90 (>60 ml/min/1.73 sqM); Albumin 2.9 g/dL (3.5-5.0); Albumin/Globulin Ratio 0.9; Alkaline Phosphatase 74 U/L (38-126); Anion Gap 8 mmol/L; Blood Urea Nitrogen 11 mg/dL (7-17); Calcium 9.1 mg/dL (8.4-10.2); Carbon Dioxide 26 mmol/L (22-30); Chloride 104 mmol/L (98-107); Globulin 3.3 g/dL; Glucose 235 mg/dL (74-99); Magnesium 1.1 mg/dL (1.6-2.3); Non-African American GFR(CKD) >90 (>60 ml/min/1.73 sqM); Phosphorus 3.2 mg/dL (2.5-4.5); Sodium 138 mmol/L (137-145); Total Bilirubin 0.5 mg/dL (0.2-1.3); Total Protein 6.2 g/dL (6.3-8.2)
[2023-07-11] MEDS: MORPHINE SULFATE 4 MG/ML SYRINGE IV PRN ×3 (10:29→21:00)
[2023-07-11 11:19] LABS: Glucose,Whole Blood 297 mg/dL (70-110)
[2023-07-11] MEDS ORDERED: diazePAM 2 MG TAB PO PRN (11:46)
[2023-07-11] MEDS: metroNIDAZOLE-NS PMX 500 MG in SALINE 1 100ML.BAG IVPB SCH ×2 (11:50→17:45)
[2023-07-11] MEDS: CEFEPIME 2 GM in SODIUM CHLORIDE 0.9% 100 ML IVPB SCH ×2 (13:29→21:00)
[2023-07-11 14:12] VITALS: BMI 48.6
[2023-07-11 15:34] LABS: Basophils # (A) 0.05 X 10*3/uL (0.00-0.10); Basophils % (A) 0.7 %; Eosinophils # (A) 0.26 X 10*3/uL (0.04-0.35); Eosinophils % (A) 3.4 %; Lymphocytes # (A) 0.72 X 10*3/uL (0.90-5.00); Lymphocytes % (A) 9.4 %; MCH 30.3 pg (27.0-32.0); MCHC 31.3 d/dL (32.0-37.0); Mean Platelet Volume 10.9 FL (9.5-12.2); Monocytes % (A) 6.5 %; NRBC Per 100 WBC 0 X 10*3/uL (0.00-0.01); Neutrophils # (A) 6.13 X 10*3/uL (1.80-7.70); Neutrophils % (A) 79.6 %; Platelet Count 240 X 10*3/uL (140-440); RDW 15.7 % (11.5-14.5); WBC 7.69 X 10*3/uL (4.50-10.00)
[2023-07-11] MEDS: MAGNESIUM SULFATE-D5W PMX 1 GM in DEXTROSE/WATER 1 100ML.BAG IVPB SCH ×4 (15:42→19:26)
[2023-07-11] MEDS: SODIUM CHLORIDE 0.9% 1,000 ML IV SCH (15:43)
--- NOTE | 2023-07-11 15:46 | P.PN ---
Subjective Progress Note Date: 07/11/23 (delayed charting seen at 1130) Patient is a 5-year-old female coronary artery disease status post stenting, permanent pacemaker, aortic valve replacement, systolic congestive heart failure with ejection fraction 40-45%, HTN, HLD, and COPD who presetned after a fall at home where she laid on the ground for 20 hours. On arrival to the ER she was slightly hypotensive with a blood pressure of 96/60. Laboratory analysis was remarkable for hemoglobin of 11, sodium 132, BUN 18, glucose 312, AST 63, CPK 942. Influenza A/B/RC/COVID-[address] head showed no acute process with some nonspecific white matter changes likely secondary to chronic small vessel ischemic disease. Lumbar spine CT showed L4 5 grade 1 anterior listhesis of moderate to severe spinal canal stenosis, facet joint arthropathy with bilateral neural foraminal stenosis and moderate spinal canal stenosis at L3/4. Patient seen and examined at bedside.Seen and examined at bedside. She is complaining of pain everywhere and needing her Valium. She recounts multiple heart surgeries that have been done this year and that she has been attempting to follow up for these wounds, but has been unsuccessful. She has sought care at [facility] and then her sports marketing internship was unable to get on the table for a proper exam. She reports feeling very frustrated with the healthcare system. Vital signs reviewed General: nontoxic, no distress, appears at stated age Cardiovascular: S1S2 reg, no murmur, positive posterior tibial pulse bilateral, Lungs: Decreased bs bilateral, no rhonchi, no rales , no accessory muscle use Abdominal: soft, nontender to palpation, no guarding, no appreciable organomegaly Ext: no gross muscle atrophy, no edema b/l lower extremities, no contractures Neuro: CN II-XI grossly intact, no focal neuro deficits Psych: Awake, oriented 3 appropriate affect Assessment/Plan: Gram-negative bacteremia one of 2 cultures -Suspect possibly secondary to wounds on bilateral lower extremities, labial, and buttock area -Patient is ALLERGIC to penicillin, secondary to her diabetes will start cefepime 2 g IV piggyback every 8 hours and Flagyl 500 mg IV every 8 hours. Consult infectious disease Metabolic encephalopathy Rhabdo Frequent Falls severe spinal stenosis -Encephalopathy resolved. Resume home Valium 2 mg twice daily and [place] 10/325 twice daily -Orthopedic spine surgery recommendations appreciated: Patient is medical clearance will resume proceed with surgical intervention, she declined wanting any surgical intervention to her lumbar spine. She'll follow up with Dr. Patel for pain management. Continues a cane or a need for ambulation - D/C IV fluids - PT/OT - fall precautions Left labial and buttock wounds with incontinence - conitnue brady - await wound care recs - honey to left butt wound once daily while awaiting further wound care recs. Hypomagnesemia -Magnesium sulfate 4 g IV piggyback -Repeat magnesium level in a.m. Coronary artery disease Aortic valve replacement Compensated chronic systolic congestive heart failure - stop IVF fluids, possible resume bumex in AM - aspirin 81 mg daily, metoprolol 25 mg daily, Lipitor 20 mg daily DM type II -Due to continued hyperglycemia will start Levemir 10 units at night, continue sliding scale -Hold Amaryl -Follow blood sugars -Check hemoglobin A1c GERD -Protonix 40 mg twice daily Chronic: Fibromyalgia GERD COPD Hypertension Dyslipidemia Sarcoidosis -Hernia Gout Chronic debility Imaging: None new Data Review: -Labs reviewed from today include CBC, basic metabolic profile, magnesium, AST, ALT which are remarkable for hemoglobin 10, blood sugar 235, magnesium 1.1, AST 67. DVT prophylaxis: Lovenox Anticipated discharge date: Pending Clinical course Anticipated discharge place: Pending Clinical course This dictation was prepared using [employer] Stream + voice recognition software. Though every attempt is made to correct errors during dictation some may still exist. Objective - Vital Signs Vital signs: Vital Signs Temp 98.3 F 07/11/23 13:12 Pulse 89 07/11/23 13:12 Resp 19 07/11/23 13:12 BP 118/67 07/11/23 13:12 Pulse Ox 97 07/11/23 13:12 FiO2 40 07/11/23 04:38 Intake & Output 07/10/23 07/11/23 07/11/23 18:59 06:59 18:59 Output Total 800 300 400 Balance -800 -300 -400 Weight 132.449 kg Output: Urine 800 300 400 Other: Voiding Method Indwelling Catheter Indwelling Catheter - Labs CBC & Chem 7: 07/11/23 08:55 07/11/23 08:55 Labs: Abnormal Lab Results - Last 24 Hours (Table) 07/10/23 07/10/23 07/11/23 Range/Units 17:06 21:17 06:14 RBC (4.10-5.20) X 10*6/uL Hgb (12.0-15.0) d/dL Hct (37.2-46.3) % MCHC (32.0-37.0) d/dL RDW (11.5-14.5) % Lymphocytes # (0.90-5.00) X 10*3/uL Creatinine (0.52-1.04) mg/dL Glucose (74-99) mg/dL POC Glucose (mg/dL) 226 H 204 H 140 H (70-110) mg/dL Magnesium (1.6-2.3) mg/dL AST (14-36) U/L Total Protein (6.3-8.2) g/dL Albumin (3.5-5.0) g/dL 07/11/23 07/11/23 07/11/23 Range/Units 08:55 08:55 11:18 RBC 3.30 L (4.10-5.20) X 10*6/uL Hgb 10.0 L (12.0-15.0) d/dL Hct 32.0 L (37.2-46.3) % MCHC 31.3 L (32.0-37.0) d/dL RDW 15.7 H (11.5-14.5) % Lymphocytes # 0.72 L (0.90-5.00) X 10*3/uL Creatinine 0.47 L (0.52-1.04) mg/dL Glucose 235 H (74-99) mg/dL POC Glucose (mg/dL) 297 H (70-110) mg/dL Magnesium 1.1 L (1.6-2.3) mg/dL AST 67 H (14-36) U/L Total Protein 6.2 L (6.3-8.2) g/dL Albumin 2.9 L (3.5-5.0) g/dL Microbiology - Last 24 Hours (Table) 07/09/23 21:30 Blood Culture - Preliminary Blood 07/09/23 21:30 Blood Culture Gram Stain - Preliminary Blood
[2023-07-11 16:34] LABS: Glucose,Whole Blood 253 mg/dL (70-110)
[2023-07-11] MEDS: INSULIN DETEMIR (LEVEMIR) 100 UNIT/ML SYR SQ SCH (21:00)
[2023-07-11] MEDS: HYDROPHILIC CREAM 180 GM TUBE TOPICAL SCH (21:00)
[2023-07-11] MEDS: LATANOPROST 0.005% OPHTH DROPS 2.5 ML BTL BOTH EYES SCH (21:01)
[2023-07-11 21:21] LABS: Glucose,Whole Blood 262 mg/dL (70-110)
[2023-07-12] MEDS: metroNIDAZOLE-NS PMX 500 MG in SALINE 1 100ML.BAG IVPB SCH ×3 (01:19→15:27)
[2023-07-12] MEDS: MORPHINE SULFATE 4 MG/ML SYRINGE IV PRN ×4 (01:19→20:11)
[2023-07-12] MEDS: CEFEPIME 2 GM in SODIUM CHLORIDE 0.9% 100 ML IVPB SCH ×3 (04:15→20:10)
--- NOTE | 2023-07-12 05:53 | P.CONS ---
History of Present Illness - Reason for Consult Consult date: 07/11/23 Bacteremia Requesting physician: Lissette Patino - Chief Complaint Weakness and fall x few days - History of Present Illness Patient is a 68-year-old female with a past medical history significant for Asthma, Cancer, COPD, Diabetes Mellitus, Eye Disorder, Fibromy algia, GERD/Reflux, Hyperlipidemia, Hypertension, Musculoskeletal Disorder, Osteoarthritis (OA), Respiratory Disorder, Sleep Apnea, patient has been brought into the hospital for evaluation of fall apparently the patient has been falling at home symptom has been going on for the last few weeks patient did have a fall drawn yesterday and the patient has been was not able to get her up for which EMS was called and the patient was brought into the hospital patient on presentation to the hospital did have a low-grade fever of 99.5 F patient did have a normal white count kidney function was normal AST was mildly elevated troponin was normal urine was negative influenza RSV and COVID testing was negative patient did have a lumbar spine CT did not show any evidence of acute fracture or discitis patient did have a blood culture drawn came back positive with gram-positive bacilli that has prompted this infectious disease consultation patient also noticed to have a wounds to the perineum right gluteal and left foot area for which wound care has been consulted per Patient nurse and treatment has been suggested patient has been complaining of mostly generalized body aches and weakness she did have wound to the right foot related which seem to have been chronic and related to immobility has been complaining of pain to the wound area mofetil aching to sharp 5-6 out of 10 had no radiation or any drainage Review of Systems Positive point and negatives has been mentioned in the HPI, complete review of systems was performed and all other systems are negative Past Medical History Past Medical History: Asthma, Cancer, COPD, Diabetes Mellitus, Eye Disorder, Fibromyalgia, GERD/Reflux, Hyperlipidemia, Hypertension, Musculoskeletal Disorder, Osteoarthritis (OA), Respiratory Disorder, Sleep Apnea/CPAP/BIPAP Additional Past Medical History / Comment(s): CTS-BILAT WRISTS. HX CERVICAL CA- 1986. SARCOIDOSIS. DJD. GLAUCOMA& CATARACTS BILAT EYES. GOUT. HIATAL HERNIA. INCONTIENT OF URINE R/T LIMITED MOBILITY. USES C-PAP BUT CURRENTLY NEEDS A NEW ONE. STATES HAS VERY SMALL AIRWAY. USES CANE FOR AMBULATION AT THIS TIME History of Any Multi-Drug Resistant Organisms: None Reported Past Surgical History: Breast Surgery, Hysterectomy Additional Past Surgical History / Comment(s): COLONOSCOPYEGDBRONCHOSCOPY W/BRONCHIAL WASHNUMEROUS CYTS REMOVED FROM SCALP X 2LT BREAST BX x 2, 06-24-15 total lt hip Past Anesthesia/Blood Transfusion Reactions: No Reported Reaction Date of Last Stent Placement:: 06/2022 Past Psychological History: Anxiety, Depression, PTSD Smoking Status: Never smoker Past Alcohol Use History: None Reported Past Drug Use History: None Reported - Past Family History Mother Family Medical History: Deep Vein Thrombosis (DVT) Father History Unknown: Yes Family Medical History: Coronary Artery Disease (CAD) Medications and Allergies Home Medications Medication Instructions Recorded Confirmed Type Levocetirizine Dihydrochloride 5 mg PO HS 05/21/15 07/09/23 History [Xyzal] Aspirin [Adult Low Dose Aspirin EC] 81 mg PO DAILY 05/09/19 07/09/23 History Lansoprazole 30 mg PO BID 05/09/19 07/09/23 History Latanoprost [Xalatan 0.005%] 1 drop BOTH EYES HS 05/09/19 07/09/23 History Simvastatin [Zocor] 40 mg PO DAILY 05/09/19 07/09/23 History Clopidogrel [Plavix] 75 mg PO DAILY 10/06/22 07/09/23 History Dicyclomine HCl 10 mg PO ACHS 10/06/22 07/09/23 History HYDROcodone/APAP 10-325MG [[place] 1 tab PO Q6H PRN 10/06/22 07/09/23 History 10-325] Insulin Lispro Protamin/Lispro See Protocol SQ AC-TID 10/06/22 07/09/23 History [humaLOG MIX 75-25 Kwikpen] Magnesium Oxide [Magox 400] 400 mg PO QID 10/06/22 07/09/23 History Metoprolol Succinate (ER) [Toprol 25 mg PO DAILY 10/06/22 07/09/23 History XL] Multivitamins, Thera [Multivitamin 1 tab PO DAILY 10/06/22 07/09/23 History (formulary)] diazePAM [Valium] 2 mg PO BID PRN 10/06/22 07/09/23 History Bumetanide [BUMEX] 1 mg PO BID 07/09/23 07/09/23 History Dupilumab [Dupixent Pen] 1 dose SQ DIRECTED 07/09/23 07/09/23 History Glimepiride [Amaryl] 2 mg PO AC-BRKFST 07/09/23 07/09/23 History Lidocaine 5% Oint [Xylocaine 5% 1 applic TOPICAL BID PRN 07/09/23 07/09/23 History Oint] Mupirocin 2% Oint [Bactroban 2% 1 applic TOPICAL TID 07/09/23 07/09/23 History Oint] Nystatin 100,000Unit/gm Cream 1 applic TOPICAL BID 07/09/23 07/09/23 History [Mycostatin Cream] Pantoprazole [Protonix] 40 mg PO DAILY 07/09/23 07/09/23 History Triamcinolone 0.1% Cream [Kenalog 1 applicatio TOPICAL BID 07/09/23 07/09/23 History 0.1% Cream] Zinc Oxide 20% Oint 1 applic TOPICAL DAILY 07/09/23 07/09/23 History Allergies Allergy/AdvReac Type Severity Reaction Status Date / Time egg Allergy Anaphylaxis Verified 07/11/23 13:22 Milk Containing Products Allergy Anaphylaxis Verified 07/11/23 13:23 (Dairy) [Dairy] metolazone [From Zaroxolyn] AdvReac Rapid Verified 07/09/23 21:37 Heart Rate morphine AdvReac Nausea, Verified 07/09/23 21:37 headache nalbuphine HCl [From Nubain] AdvReac Rapid Verified 07/09/23 21:37 Heart Rate Penicillins AdvReac Yeast Verified 07/09/23 21:37 infection Physical Exam Vitals: Vital Signs Temp Pulse Resp BP Pulse Ox FiO2 07/11/23 09:11 92 L 07/11/23 07:11 98.1 F 83 17 165/69 99 07/11/23 04:38 40 07/11/23 02:00 98.7 F 80 20 136/73 98 07/11/23 00:08 40 07/10/23 21:24 40 07/10/23 20:00 98.2 F 82 23 151/89 99 07/10/23 15:45 40 07/10/23 13:33 97.2 F L 85 16 119/73 98 Intake and Output 07/10/23 07/11/2307/11/23 22:59 06:59 14:59 Output Total 800 300 Balance -800 -300 Output: Urine 800 300 Other: Voiding Method Indwelling Catheter Indwelling Catheter GENERAL DESCRIPTION: Elderly female lying in bed, no distress. No tachypnea or accessory muscle of respiration use. HEENT: Shows Pallor , no scleral icterus. Oral mucous membrane is dry. No pharyngeal erythema or thrush NECK: Trachea central, no thyromegaly. LUNGS: Unlabored breathing. Decreased breath sound at the base HEART: S1, S2, regular rate and rhythm. ABDOMEN: Soft, no tenderness , EXTREMITIES: Diffuse swelling to the bilateral lower extremity with some superficial ulceration to the left leg no slough tissue drainage SKIN: Patient did have a wound to the right perianal area with minimal slough tissue and wound to the gluteal area with minimal slough tissue and minimal surrounding redness NEUROLOGICAL: The patient is awake, alert, oriented x3, mood and affect normal. Results CBC & Chem 7: 07/12/23 06:09 07/12/23 06:09 Labs: Abnormal Lab Results - Last 24 Hours (Table) 07/10/23 07/10/23 07/10/23 Range/Units 12:35 12:35 17:06 RBC 3.13 L (3.80-5.40) m/uL Hgb 9.8 L (11.4-16.0) gm/dL Hct 30.3 L (34.0-46.0) % Sodium 134 L (137-145) mmol/L Creatinine 0.48 L (0.52-1.04) mg/dL Glucose 212 H (74-99) mg/dL POC Glucose (mg/dL) 226 H (70-110) mg/dL Magnesium (1.6-2.3) mg/dL AST 73 H (14-36) U/L Creatine Kinase 1005 H* (30-135) U/L Total Protein 5.9 L (6.3-8.2) g/dL Albumin 2.7 L (3.5-5.0) g/dL 07/10/23 07/11/23 07/11/23 Range/Units 21:17 06:14 08:55 RBC (3.80-5.40) m/uL Hgb (11.4-16.0) gm/dL Hct (34.0-46.0) % Sodium (137-145) mmol/L Creatinine 0.47 L (0.52-1.04) mg/dL Glucose 235 H (74-99) mg/dL POC Glucose (mg/dL) 204 H 140 H (70-110) mg/dL Magnesium 1.1 L (1.6-2.3) mg/dL AST 67 H (14-36) U/L Creatine Kinase (30-135) U/L Total Protein 6.2 L (6.3-8.2) g/dL Albumin 2.9 L (3.5-5.0) g/dL 07/11/23 Range/Units 11:18 RBC (3.80-5.40) m/uL Hgb (11.4-16.0) gm/dL Hct (34.0-46.0) % Sodium (137-145) mmol/L Creatinine (0.52-1.04) mg/dL Glucose (74-99) mg/dL POC Glucose (mg/dL) 297 H (70-110) mg/dL Magnesium (1.6-2.3) mg/dL AST (14-36) U/L Creatine Kinase (30-135) U/L Total Protein (6.3-8.2) g/dL Albumin (3.5-5.0) g/dL Microbiology - Last 24 Hours (Table) 07/09/23 21:30 Blood Culture Gram Stain - Preliminary Blood Assessment and Plan (1) Positive blood culture Current Visit: Yes Status: Acute Code(s): R78.81 - BACTEREMIA SNOMED Code(s): 563540742 (2) Wound cellulitis Current Visit: Yes Status: Acute Code(s): L03.90 - CELLULITIS, UNSPECIFIED SNOMED Code(s): 059985179 Plan: 1patient with a positive blood culture with gram-positive bacilli is more likely skin contamination in this patient who do not have any fever elevated white count await ID sensitivity blood cultures will be repeated document clearance 2-patient with a multiple wounds to the perianal gluteal area with some slough tissue may benefit from debridement wound care is on the case and will continue local wound care per them 3-may continue with the cefepime and Flagyl because of location of the wound and concern for possible secondary cellulitis We will follow on clinical condition and cultures to further adjust medication if needed Thank you for this consultation we will follow the patient along with you Dictation was produced using 3D Formsation software. please excuse any grammatical, word or spelling errors. Time with Patient: Greater than 30
[2023-07-12 06:19] LABS: Glucose,Whole Blood 232 mg/dL (70-110)
[2023-07-12] MEDS: INSULIN ASPART (NovoLOG) 100 UNIT/ML VIAL SQ SCH ×4 (06:32→22:37)
[2023-07-12] MEDS: PANTOPRAZOLE 40 MG TABLET PO SCH ×2 (06:32→17:27)
[2023-07-12] MEDS: HYDROcodone/APAP 10-325MG 1 EACH TAB PO PRN (08:13)
[2023-07-12] MEDS: METOPROLOL SUCCINATE (ER) 25 MG TAB.ER.24H PO SCH (08:13)
[2023-07-12] MEDS: ATORVASTATIN 20 MG TAB PO SCH (08:13)
[2023-07-12] MEDS: ENOXAPARIN 40 MG/0.4 ML SYRINGE SQ SCH (08:13)
[2023-07-12] MEDS: ASPIRIN 81 MG PO SCH (08:13)
[2023-07-12] MEDS: CLOPIDOGREL 75 MG TAB PO SCH (08:13)
[2023-07-12] MEDS: HYDROPHILIC CREAM 180 GM TUBE TOPICAL SCH ×2 (08:14→20:10)
[2023-07-12 11:04] LABS: HCT 30.3 % (37.2-46.3); HGB 9.4 d/dL (12.0-15.0); MCH 29.7 pg (27.0-32.0); MCV 95.6 FL (80.0-97.0); Mean Platelet Volume 10.8 FL (9.5-12.2); NRBC Per 100 WBC 0 X 10*3/uL (0.00-0.01); Platelet Count 241 X 10*3/uL (140-440); RBC 3.17 X 10*6/uL (4.10-5.20); RDW 15.5 % (11.5-14.5); WBC 6.26 X 10*3/uL (4.50-10.00)
[2023-07-12 11:16] LABS: Glucose,Whole Blood 323 mg/dL (70-110)
[2023-07-12 12:46] LABS: BUN/Creat Ratio 15.86 Ratio (12.00-20.00); Blood Urea Nitrogen 11.1 mg/dL (9.0-27.0); Calcium 8.9 mg/dL (8.7-10.3); Carbon Dioxide 26.8 mmol/L (21.6-31.8); Chloride 103 mmol/L (96-109); Glucose 215 mg/dL (70-110); Magnesium 1.6 mg/dL (1.5-2.4); Potassium 3.9 mmol/L (3.5-5.5); Sodium 139 mmol/L (135-145)
--- NOTE | 2023-07-12 14:47 | P.PN ---
Subjective Progress Note Date: 07/12/23 Principal diagnosis: Wounds and positive blood culture Patient is a 68-year-old female with a past medical history significant for Asthma, Cancer, COPD, Diabetes Mellitus, Eye Disorder, Fibromyalgia, GERD/Reflux, Hyperlipidemia, Hypertension, presented to the hospital with weakness and fall patient noticed to have a low-grade fever did have a wound to the perineum bradycardia and left foot with a positive blood culture On today's evaluation that is 07/12/2023, the patient remains to be afebrile the patient is breathing comfortably on 3 L nasal cannula oxygen, the patient denies having any chest pain shortness of breath or cough, patient denies abdominal pain and no nausea/vomiting /diarrhea, Patient did have a white count of 6.26 creatinine 0.70 Objective - Vital Signs Vital signs: Vital Signs Temp 98.3 F 07/12/23 07:19 Pulse 78 07/12/23 07:19 Resp 18 07/12/23 07:19 BP 122/63 07/12/23 07:19 Pulse Ox 96 07/12/23 07:19 FiO2 40 07/11/23 04:38 Intake & Output 07/11/23 07/12/23 07/12/23 18:59 06:59 18:59 Intake Total 900 800 Output Total 400 650 Balance 500 -650 800 Weight 132.449 kg Intake: Intake, IV Titration 900 800 Amount Cefepime 2 gm In Sodium 100 100 Chloride 0.9% 100 ml @ 25 mls/hr IVPB Q8HR@0400, 1200,2000 [facility] Rx#: [id number] Magnesium Sulfate-D5w Pmx 100 1 gm In Dextrose/Water 1 100ml.bag @ 100 mls/hr IVPB Q1H [facility] Rx#: [id number] Sodium Chloride 0.9% 1, 600 600 000 ml @ 75 mls/hr IV . [id number] [facility] Rx#:[id number] metroNIDAZOLE-NS PMX 500 100 100 mg In Saline 1 100ml.bag @ 100 mls/hr IVPB Q8HR [facility] Rx#:[id number] Output: Urine 400 650 Other: Voiding Method Indwelling Catheter Indwelling Catheter Indwelling Catheter - Exam GENERAL DESCRIPTION: An elderly female lying in bed in no distress RESPIRATORY SYSTEM: Unlabored breathing , decreased breath sounds at bases HEART: S1 S2 regular rate and rhythm , ABDOMEN: Soft , no tenderness EXTREMITIES: Swelling to the leg no significant redness - Labs CBC & Chem 7: 07/12/23 06:09 07/12/23 06:09 Labs: Abnormal Lab Results - Last 24 Hours (Table) 07/11/23 07/11/23 07/11/23 Range/Units 08:55 16:33 21:19 RBC 3.30 L (4.10-5.20) X 10*6/uL Hgb 10.0 L (12.0-15.0) d/dL Hct 32.0 L (37.2-46.3) % MCHC 31.3 L (32.0-37.0) d/dL RDW 15.7 H (11.5-14.5) % Lymphocytes # 0.72 L (0.90-5.00) X 10*3/uL Glucose (70-110) mg/dL POC Glucose (mg/dL) 253 H 262 H (70-110) mg/dL Hemoglobin A1c (<=6.0) % 07/12/23 07/12/23 07/12/23 Range/Units 06:09 06:09 06:09 RBC 3.17 L (4.10-5.20) X 10*6/uL Hgb 9.4 L (12.0-15.0) d/dL Hct 30.3 L (37.2-46.3) % MCHC 31.0 L (32.0-37.0) d/dL RDW 15.5 H (11.5-14.5) % Lymphocytes # (0.90-5.00) X 10*3/uL Glucose 215 H (70-110) mg/dL POC Glucose (mg/dL) (70-110) mg/dL Hemoglobin A1c 10.7 H (<=6.0) % 07/12/23 07/12/23 Range/Units 06:18 11:15 RBC (4.10-5.20) X 10*6/uL Hgb (12.0-15.0) d/dL Hct (37.2-46.3) % MCHC (32.0-37.0) d/dL RDW (11.5-14.5) % Lymphocytes # (0.90-5.00) X 10*3/uL Glucose (70-110) mg/dL POC Glucose (mg/dL) 232 H 323 H (70-110) mg/dL Hemoglobin A1c (<=6.0) % Microbiology - Last 24 Hours (Table) 07/09/23 21:30 Blood Culture - Preliminary Blood 07/09/23 21:30 Blood Culture Gram Stain - Preliminary Blood Blood Culture - Preliminary Gram Positive Bacilli Assessment and Plan (1) Positive blood culture Current Visit: Yes Status: Acute Code(s): R78.81 - BACTEREMIA SNOMED Code(s): 155467939 (2) Wound cellulitis Current Visit: Yes Status: Acute Code(s): L03.90 - CELLULITIS, UNSPECIFIED SNOMED Code(s): 340108255 Plan: 1patient with a positive blood culture with gram-positive bacilli is more likely skin contamination, no need for vancomycin blood cultures will be repeated document clearance 2-patient with a multiple wounds to the perianal gluteal area with some slough tissue , continue local wound care per them 3-patient to continue with the cefepime and Flagyl because of location of the wound and concern for possible secondary cellulitis while waiting for condition to stabilize Dictation was produced using ePrep dictation software. please excuse any grammatical, word or spelling errors. Time with Patient: Less than 30
--- NOTE | 2023-07-12 15:41 | P.PN ---
Subjective Progress Note Date: 07/12/23 Patient is a 68-year-old female coronary artery disease status post stenting, permanent pacemaker, aortic valve replacement, systolic congestive heart failure with ejection fraction 40-45%, HTN, HLD, and COPD who presetned after a fall at home where she laid on the ground for 20 hours. On arrival to the ER she was slightly hypotensive with a blood pressure of 96/60. Laboratory analysis was remarkable for hemoglobin of 11, sodium 132, BUN 18, glucose 312, AST 63, CPK 942. Influenza A/B/RSV/COVID-[address] head showed no acute process with some nonspecific white matter changes likely secondary to chronic small vessel ischemic disease. Lumbar spine CT showed L4 5 grade 1 anterior listhesis of moderate to severe spinal canal stenosis, facet joint arthropathy with bilateral neural foraminal stenosis and moderate spinal canal stenosis at L3/4. 07/12 Patient seen and examined at bedside. Pain well controlled. She continues to decline working with PT due to her sacral and labial wounds. Hopeful plans for SNF. States prior could ambulate with a walker. CBC shows Hg 9.4. BMP shows glucose 215. A1c 10.7. Mag 1.6. Repeat BCx negative at 48H. Vital signs reviewed General: nontoxic, no distress, appears at stated age Cardiovascular: S1S2 reg, no murmur Lungs: Decreased bs bilateral, no rhonchi, no rales , no accessory muscle use Ext: no gross muscle atrophy, no edema b/l lower extremities, no contractures Neuro: no focal neuro deficits Psych: Awake, oriented 3 appropriate affect Gram-negative bacteremia one of 2 cultures secondary to Left labial and buttock wounds with incontinence Metabolic encephalopathy Rhabdo [place] Severe spinal stenosis Hypomagnesemia Coronary artery disease Aortic valve replacement Compensated chronic systolic congestive heart failure DM type II GERD Chronic: Fibromyalgia, GERD, COPD, Hypertension, Dyslipidemia, Sarcoidosis, Her chito, Gout, Chronic debility Based on my assessment of this patient, this patient meets a moderate complexity level of care. Patient has an acute diagnosis of gram negative bacteremia secondary to labial and buttocks wounds that poses a threat to life or bodily function. Gram-negative bacteremia one of 2 cultures secondary to left labial and buttock wounds with incontinence: Cefepime 2 g IV Q8H and Flagyl 500 mg IV Q8H. Continue Castro catheter. Wound care consulted. ID recommends awaiting repeat blood cultures finalizing. Metabolic encephalopathy: Resolved Rhabdo: Monitor renal function. Frequent Falls: PT and OT consulted. Severe spinal stenosis: Patient declining any spinal surgeries at this time. Follow up with Dr. Patel for pain management. Coronary artery disease: Aspirin 81 mg PO QD, Metoprolol 25 mg PO QD, Lipitor 20 mg PO QD. Aortic valve replacement Compensated chronic systolic CHF DM type II: Levemir 10 units QHS. Continue sliding scale GERD: Protonix 40 mg PO BID. Resolved: Hypomagnesemia I have reviewed the following security system sales consultant notes: ID note. I have reviewed the results of the following tests: CBC, BMP, Mag. I have ordered the following tests: I have discussed the care of this patient with the following independent historian: I have independently interpreted the following test below: I have discussed the management of this patient with the following physician: Objective - Vital Signs Vital signs: Vital Signs Temp 98.3 F 07/12/23 07:19 Pulse 78 07/12/23 07:19 Resp 18 07/12/23 07:19 BP 122/63 07/12/23 07:19 Pulse Ox 96 07/12/23 07:19 FiO2 40 07/11/23 04:38 Intake & Output 07/11/23 07/12/23 07/12/23 18:59 06:59 18:59 Intake Total 900 800 Output Total 400 650 Balance 500 -650 800 Weight 132.449 kg Intake: Intake, IV Titration 900 800 Amount Cefepime 2 gm In Sodium 100 100 Chloride 0.9% 100 ml @ 25 mls/hr IVPB Q8HR@0400, 1200,2000 [facility] Rx#: [id number] Magnesium Sulfate-D5w Pmx 100 1 gm In Dextrose/Water 1 100ml.bag @ 100 mls/hr IVPB Q1H [facility] Rx#: [id number] Sodium Chloride 0.9% 1, 600 600 000 ml @ 75 mls/hr IV . [id number] [facility] Rx#:[id number] metroNIDAZOLE-NS PMX 500 100 100 mg In Saline 1 100ml.bag @ 100 mls/hr IVPB Q8HR [facility] Rx#:[id number] Output: Urine 400 650 Other: Voiding Method Indwelling Catheter Indwelling Catheter Indwelling Catheter - Labs CBC & Chem 7: 07/12/23 06:09 07/12/23 06:09 Labs: Abnormal Lab Results - Last 24 Hours (Table) 07/11/23 07/11/23 07/12/23 Range/Units 16:33 21:19 06:09 RBC (4.10-5.20) X 10*6/uL Hgb (12.0-15.0) d/dL Hct (37.2-46.3) % MCHC (32.0-37.0) d/dL RDW (11.5-14.5) % Glucose (70-110) mg/dL POC Glucose (mg/dL) 253 H 262 H (70-110) mg/dL Hemoglobin A1c 10.7 H (<=6.0) % 07/12/23 07/12/23 07/12/23 Range/Units 06:09 06:09 06:18 RBC 3.17 L (4.10-5.20) X 10*6/uL Hgb 9.4 L (12.0-15.0) d/dL Hct 30.3 L (37.2-46.3) % MCHC 31.0 L (32.0-37.0) d/dL RDW 15.5 H (11.5-14.5) % Glucose 215 H (70-110) mg/dL POC Glucose (mg/dL) 232 H (70-110) mg/dL Hemoglobin A1c (<=6.0) % 07/12/23 Range/Units 11:15 RBC (4.10-5.20) X 10*6/uL Hgb (12.0-15.0) d/dL Hct (37.2-46.3) % MCHC (32.0-37.0) d/dL RDW (11.5-14.5) % Glucose (70-110) mg/dL POC Glucose (mg/dL) 323 H (70-110) mg/dL Hemoglobin A1c (<=6.0) % Microbiology - Last 24 Hours (Table) 07/09/23 21:30 Blood Culture - Preliminary Blood 07/09/23 21:30 Blood Culture Gram Stain - Preliminary Blood Blood Culture - Preliminary Gram Positive Bacilli
[2023-07-12 16:38] LABS: Glucose,Whole Blood 338 mg/dL (70-110)
[2023-07-12] MEDS: INSULIN DETEMIR (LEVEMIR) 100 UNIT/ML SYR SQ SCH (20:09)
[2023-07-12] MEDS: LATANOPROST 0.005% OPHTH DROPS 2.5 ML BTL BOTH EYES SCH (20:10)
[2023-07-12 20:33] LABS: Glucose,Whole Blood 356 mg/dL (70-110)
[2023-07-13] MEDS: metroNIDAZOLE-NS PMX 500 MG in SALINE 1 100ML.BAG IVPB SCH ×3 (00:14→18:01)
[2023-07-13] MEDS: MORPHINE SULFATE 4 MG/ML SYRINGE IV PRN ×4 (01:19→20:32)
[2023-07-13] MEDS: CEFEPIME 2 GM in SODIUM CHLORIDE 0.9% 100 ML IVPB SCH ×3 (03:58→20:31)
[2023-07-13 05:52] LABS: Glucose,Whole Blood 294 mg/dL (70-110)
[2023-07-13] MEDS: PANTOPRAZOLE 40 MG TABLET PO SCH ×2 (06:12→17:23)
[2023-07-13] MEDS: INSULIN ASPART (NovoLOG) 100 UNIT/ML VIAL SQ SCH ×4 (06:13→20:31)
[2023-07-13] MEDS: METOPROLOL SUCCINATE (ER) 25 MG TAB.ER.24H PO SCH (10:43)
[2023-07-13] MEDS: ENOXAPARIN 40 MG/0.4 ML SYRINGE SQ SCH (10:43)
[2023-07-13] MEDS: ATORVASTATIN 20 MG TAB PO SCH (10:43)
[2023-07-13] MEDS: CLOPIDOGREL 75 MG TAB PO SCH (10:43)
[2023-07-13] MEDS: ASPIRIN 81 MG PO SCH (10:43)
[2023-07-13] MEDS: HYDROPHILIC CREAM 180 GM TUBE TOPICAL SCH ×2 (10:44→20:32)
[2023-07-13 11:21] LABS: Glucose,Whole Blood 297 mg/dL (70-110)
--- NOTE | 2023-07-13 12:07 | P.PN ---
Subjective Progress Note Date: 07/13/23 Principal diagnosis: Wounds and positive blood culture Patient is a 68-year-old female with a past medical history significant for Asthma, Cancer, COPD, Diabetes Mellitus, Eye Disorder, Fibromyalgia, GERD/Reflux, Hyperlipidemia, Hypertension, presented to the hospital with weakness and fall patient noticed to have a low-grade fever did have a wound to the perineum bradycardia and left foot with a positive blood culture On today's evaluation that is 07/13/2023, the patient denies any fever or any chills, the patient is breathing comfortably on 3 L nasal cannula supplemental oxygen, the patient denies chest pain or cough, patient denies nausea/vomiting and no diarrhea has been reported by the nursing staff Patient did have a white count of 6.26 creatinine 0.70 as of yesterday no labs visible in the system today Objective - Vital Signs Vital signs: Vital Signs Temp 99.0 F 07/13/23 07:15 Pulse 70 07/13/23 07:15 Resp 20 07/13/23 07:15 BP 127/72 07/13/23 07:15 Pulse Ox 97 07/13/23 07:15 FiO2 40 07/11/23 04:38 Intake & Output 07/12/23 07/13/23 07/13/23 18:59 06:59 18:59 Intake Total 800 Output Total 501 Balance 800 -501 Intake: Intake, IV Titration 800 Amount Cefepime 2 gm In Sodium 100 Chloride 0.9% 100 ml @ 25 mls/hr IVPB Q8HR@0400, 1200,2000 [facility] Rx#: [id number] Sodium Chloride 0.9% 1, 600 000 ml @ 75 mls/hr IV . [id number] [facility] Rx#:[id number] metroNIDAZOLE-NS PMX 500 100 mg In Saline 1 100ml.bag @ 100 mls/hr IVPB Q8HR [facility] Rx#:[id number] Output: Urine 501 Other: Voiding Method Indwelling Catheter Indwelling Catheter # Voids 400 - Exam GENERAL DESCRIPTION: An elderly female lying in bed in no distress RESPIRATORY SYSTEM: Unlabored breathing , decreased breath sounds at bases HEART: S1 S2 regular rate and rhythm , ABDOMEN: Soft , no tenderness EXTREMITIES: Patient did have a left foot infected blister the significant amount of foul-smelling drainage which was cultured - Labs CBC & Chem 7: 07/12/23 06:09 07/12/23 06:09 Labs: Abnormal Lab Results - Last 24 Hours (Table) 07/12/23 07/12/23 07/12/23 Range/Units 06:09 16:37 20:30 Glucose 215 H (70-110) mg/dL POC Glucose (mg/dL) 338 H 356 H (70-110) mg/dL 07/13/23 07/13/23 Range/Units 05:51 11:16 Glucose (70-110) mg/dL POC Glucose (mg/dL) 294 H 297 H (70-110) mg/dL Microbiology - Last 24 Hours (Table) 07/09/23 21:30 Blood Culture Gram Stain - Final Blood Blood Culture - Final Gram Positive Bacilli 07/11/23 12:03 Blood Culture - Preliminary Blood 07/09/23 21:30 Blood Culture - Preliminary Blood Assessment and Plan (1) Positive blood culture Current Visit: Yes Status: Acute Code(s): R78.81 - BACTEREMIA SNOMED Co de(s): 476982272 (2) Wound cellulitis Current Visit: Yes Status: Acute Code(s): L03.90 - CELLULITIS, UNSPECIFIED SNOMED Code(s): 530567478 Plan: 1patient with a positive blood culture with gram-positive bacilli is more likely skin contamination, no need for vancomycin blood cultures will be repeated document clearance 2-patient with a multiple wounds to the perianal gluteal area with some slough tissue , continue local wound care per them 3-patient noticed to have a infected callus to the left foot is significant amount of purulent drainage has been cultured CT has been ordered patient to continue cefepime and Flagyl antibiotic will be adjusted on the basis of these culture and CT report discussed with the admitting physician Dictation was produced using Base[employer] dictation software. please excuse any grammatical, word or spelling errors. Time with Patient: Less than 30
--- NOTE | 2023-07-13 14:54 | CDI ---
Documentation Clarification Form Date: 07/13/2023 02:40:15 PM From: Stephania Duff RN CCDS Phone: [phone] Admit Date: 07/11/2023 12:17:00 PM Patient Name: Roseline Larose Visit Number: [id number] Discharge Date: ATTENTION: The Clinical Documentation Specialists (CDI) and [facility] Coding Staff appreciate your assistance in clarifying documentation. Please respond to the clarification below the line at the bottom and electronically sign. The CDI & [facility] Coding staff will review the response and follow-up if needed. Please note: Queries are made part of the Legal Health Record. If you have any questions, please contact the author of this message via ITS. Dr. Jeannette Smalls Rhabdomyolysis is documented 07/10, H&P. Additional clarification regarding the type of rhabdomyolysis is requested. History/Risk Factors: 68-year-old female presents to ED and reports falling roughly 24 hours prior to arrival at the ER and her was not able to get her up. The patient laid on the floor for 20 hours. Medical History: DM2, Recent pacemaker placement, CHF, chronic diabetic foot ulcers, HTN and HLD Clinical Indicators: Creatinine kinase: 07/09 942; 07/10 1040; 07/10 1005 Treatment:07/09 0.9NS 1 L IV Bolus x 1; 07/10 0.9NS 75cc/hr IV; 07/10 0.9NS 2L IV Bolus Please clarify the type of rhabdomyolysis, if known: [ ] Traumatic rhabdomyolysis due to fall [ x ] Traumatic rhabdomyolysis due to prolonged immobility [ ] Other, please specify [ ] Unable to Determine (Template Last Revised: December 2020) MTDD
--- NOTE | 2023-07-13 15:12 | CDI ---
Documentation Clarification Form Date: 07/13/2023 02:56:01 PM From: Stephania Duff RN CCDS Phone: [phone] Admit Date: 07/11/2023 12:17:00 PM Patient Name: Roseline Larose Visit Number: [id number] Discharge Date: ATTENTION: The Clinical Documentation Specialists (CDI) and [facility] Coding Staff appreciate your assistance in clarifying documentation. Please respond to the clarification below the line at the bottom and electronically sign. The CDI & [facility] Coding staff will review the response and follow-up if needed. Please note: Queries are made part of the Legal Health Record. If you have any questions, please contact the author of this message via ITS. Dr. Jeannette Barcenas Groin pressure ulcer is documented by Nursing 07/11, Nursing pressure injury assessment. Based on this information and the findings below, is there an additional diagnosis that is clinically appropriate for this patient? History/Risk Factors: 68-year-old female presents to ED and reports falling roughly 24 hours prior to arrival at the ER and her was not able to get her up. The patient laid on the floor for 20 hours. Medical History: DM2, Recent pacemaker placement, CHF, chronic diabetic foot ulcers, HTN and HLD. Clinical Indicators: Location: Groin Wound description: wound margins indistinct, domi wound moisture moist, domi- wound color Erythema, Drainage - Purulent, Drainage Amount - small, Drainage Odor Foul odor Treatment: Triad cream, Medicated Gel & Ointment, Turn 2QH, Absorbant underpad check Q1H Is there an additional diagnosis that is clinically appropriate for this patient? [ ] Groin Pressure Ulcer Stage 4 [ ] Other condition, please specify [ x ] Unable to determine Clinical Definitions: Stage 1 Pressure Ulcer: intact skin, non-blanching redness of local area Stage 2 Pressure Ulcer: Partial thickness, loss of dermis, pink wound bed Stage 3 Pressure Ulcer: Full thickness tissue loss Stage 4 Pressure Ulcer: Full thickness tissue loss with exposed bone, tendon, or muscle. Unstageable pressure ulcer: Full thickness tissue loss in which the base of the ulcer is covered by slough (yellow, card, medina, green or brown) and/or eschar (card, brown or black) in the wound bed. (Template Last Revised: December 2020) MTDD
--- NOTE | 2023-07-13 15:29 | CDI ---
Documentation Clarification Form Date: 07/13/2023 03:14:05 PM From: Stephania Duff RN CCDS Phone: [phone] Admit Date: 07/11/2023 12:17:00 PM Patient Name: Roseline Larose Visit Number: [id number] Discharge Date: ATTENTION: The Clinical Documentation Specialists (CDI) and [facility] Coding Staff appreciate your assistance in clarifying documentation. Please respond to the clarification below the line at the bottom and electronically sign. The CDI & [facility] Coding staff will review the response and follow-up if needed. Please note: Queries are made part of the Legal Health Record. If you have any questions, please contact the author of this message via ITS. Dr. Jeannette Smalls A Left buttock, stage IV pressure ulcer is documented by Nursing in the Nursing pressure injury assessment, 07/11. Based on this information and the findings below, is there an additional diagnosis that is clinically appropriate for this patient? History/Risk Factors: 68-year-old female presents to ED and reports falling roughly 24 hours prior to arrival at the ER and her was not able to get her up. The patient laid on the floor for 20 hours. Medical History: DM2, Recent pacemaker placement, CHF, chronic diabetic foot ulcers, HTN and HLD. 07/10 H&P Clinical Indicators: Location: Left Buttock stage iv pressure ulcer Wound description: Wound margins - description Indistinct; Delmy-Wound Moisture Moist; Delmy-Wound Color - Erythema; Drainage Yellow; Drainage Amount Moderate Treatment: Turn 2QH, Absorbant underpad check Q1H; Saline Irrigant, Honey gel, Foam with border, Honey dressing in place. Is there an additional diagnosis that is clinically appropriate for this patient? [ x ] Left Buttock Pressure Ulcer Stage 4 [ ] Other condition, please specify [ ] Unable to determine Clinical Definitions: Stage 1 Pressure Ulcer: intact skin, non-blanching redness of local area Stage 2 Pressure Ulcer: Partial thickness, loss of dermis, pink wound bed Stage 3 Pressure Ulcer: Full thickness tissue loss Stage 4 Pressure Ulcer: Full thickness tissue loss with exposed bone, tendon, or muscle. Unstageable pressure ulcer: Full thickness tissue loss in which the base of the ulcer is covered by slough (yellow, card, medina, green or brown) and/or eschar (card, brown or black) in the wound bed. (Template Last Revised: December 2020) MTDD
--- NOTE | 2023-07-13 15:36 | CDI ---
Documentation Clarification Form Date: 07/13/2023 03:30:45 PM From: Stephania Duff RN CCDS Phone: [phone] Admit Date: 07/11/2023 12:17:00 PM Patient Name: Roseline Larose Visit Number: [id number] Discharge Date: ATTENTION: The Clinical Documentation Specialists (CDI) and [facility] Coding Staff appreciate your assistance in clarifying documentation. Please respond to the clarification below the line at the bottom and electronically sign. The CDI & [facility] Coding staff will review the response and follow-up if needed. Please note: Queries are made part of the Legal Health Record. If you have any questions, please contact the author of this message via ITS. Dr. Jeannette Barcenas Right great toe deep tissue injury is documented by Nursing pressure injury assessment, 07/11. Based on this information and the findings below, is there an additional diagnosis that is clinically appropriate for this patient? History/Risk Factors: 68-year-old female presents to the ED and reports falling roughly 24 hours prior to arrival at the ER and her was not able to get her up. The patient laid on the floor for 20 hours. Medical History: DM2, Recent pacemaker placement, CHF, chronic diabetic foot ulcers, HTN and HLD. 07/10 H&P Clinical Indicators: Location: Right great toe Wound description: Wound Margins Description - Distinct Treatment: Turn 2QH, Absorbant underpad check Q1H Is there an additional diagnosis that is clinically appropriate for this patient? [ x ] Right great toe Deep tissue injury [ ] Other condition, please specify [ ] Unable to determine Clinical Definitions: Stage 1 Pressure Ulcer: intact skin, non-blanching redness of local area Stage 2 Pressure Ulcer: Partial thickness, loss of dermis, pink wound bed Stage 3 Pressure Ulcer: Full thickness tissue loss Stage 4 Pressure Ulcer: Full thickness tissue loss with exposed bone, tendon, or muscle. Unstageable pressure ulcer: Full thickness tissue loss in which the base of the ulcer is covered by slough (yellow, card, medina, green or brown) and/or eschar (card, brown or black) in the wound bed. (Template Last Revised: December 2020) MTDD
--- NOTE | 2023-07-13 15:47 | P.PN ---
Subjective Progress Note Date: 07/13/23 Patient is a 68-year-old female coronary artery disease status post stenting, permanent pacemaker, aortic valve replacement, systolic congestive heart failure with ejection fraction 40-45%, HTN, HLD, and COPD who presetned after a fall at home where she laid on the ground for 20 hours. On arrival to the ER she was slightly hypotensive with a blood pressure of 96/60. Laboratory analysis was remarkable for hemoglobin of 11, sodium 132, BUN 18, glucose 312, AST 63, CPK 942. Influenza A/B/RSV/COVID-[address] head showed no acute process with some nonspecific white matter changes likely secondary to chronic small vessel ischemic disease. Lumbar spine CT showed L4 5 grade 1 anterior listhesis of moderate to severe spinal canal stenosis, facet joint arthropathy with bilateral neural foraminal stenosis and moderate spinal canal stenosis at L3/4. 07/12 Patient seen and examined at bedside. Pain well controlled. She continues to decline working with PT due to her sacral and labial wounds. Hopeful plans for SNF. States prior could ambulate with a walker. CBC shows Hg 9.4. BMP shows glucose 215. A1c 10.7. Mag 1.6. Repeat BCx negative at 48H. 07/13 Patient seen and examined. Encouraged to work with PT. Seen with Dr. Aggarwal, wound draining purulent discharge from L foot, will obtain CT foot to r/o OM. Vital signs reviewed General: nontoxic, no distress, appears at stated age Cardiovascular: S1S2 reg, no murmur Lungs: Decreased bs bilateral, no rhonchi, no rales , no accessory muscle use Ext: no gross muscle atrophy, no edema b/l lower extremities, no contractures Neuro: no focal neuro deficits Psych: Awake, oriented 3 appropriate affect Gram-negative bacteremia one of 2 cultures secondary to Left labial and buttock wounds with incontinence L foot wound Metabolic encephalopathy Rhabdo [place] Severe spinal stenosis Hypomagnesemia Coronary artery disease Aortic valve replacement Compensated chronic systolic congestive heart failure DM type II GERD Chronic: Fibromyalgia, GERD, COPD, Hypertension, Dyslipidemia, Sarcoidosis, Hernia, Gout, Chronic debility Based on my assessment of this patient, this patient meets a moderate complexity level of care. Patient has an acute diagnosis of gram negative bacteremia secondary to labial and buttocks wounds that poses a threat to life or bodily function. Gram-negative bacteremia one of 2 cultures secondary to left labial and buttock wounds with incontinence: Cefepime 2 g IV Q8H and Flagyl 500 mg IV Q8H. Continue Castro catheter. Wound care consulted. ID recommends awaiting repeat blood cultures finalizing. L foot wound. Discuss with Dr. Aggarwal, obtain CT foot and WCx. Metabolic encephalopathy: Resolved Rhabdo: Monitor renal function. Frequent Falls: PT and OT consulted. Severe spinal stenosis: Patient declining any spinal surgeries at this time. Follow up with Dr. Patel for pain management. Coronary artery disease: Aspirin 81 mg PO QD, Metoprolol 25 mg PO QD, Lipitor 20 mg PO QD. Aortic valve replacement Compensated chronic systolic CHF DM type II: Levemir 10 units QHS. Continue sliding scale GERD: Protonix 40 mg PO BID. Resolved: Hypomagnesemia I have reviewed the following lending consultant notes: ID note. I have reviewed the results of the following tests: I have ordered the following tests: CT foot. I have discussed the care of this patient with the following independent histori an: I have independently interpreted the following test below: I have discussed the management of this patient with the following physician: Discussed with Dr. Aggarwal as above. Objective - Vital Signs Vital signs: Vital Signs Temp 98.2 F 07/13/23 14:00 Pulse 79 07/13/23 14:00 Resp 18 07/13/23 14:00 BP 126/74 07/13/23 14:00 Pulse Ox 98 07/13/23 14:00 FiO2 40 07/11/23 04:38 Intake & Output 07/12/23 07/13/23 07/13/23 18:59 06:59 18:59 Intake Total 800 Output Total 501 Balance 800 -501 Intake: Intake, IV Titration 800 Amount Cefepime 2 gm In Sodium 100 Chloride 0.9% 100 ml @ 25 mls/hr IVPB Q8HR@0400, 1200,2000 [facility] Rx#: [id number] Sodium Chloride 0.9% 1, 600 000 ml @ 75 mls/hr IV . [id number] [facility] Rx#:[id number] PMX 500 100 mg In Saline 1 100ml.bag @ 100 mls/hr IVPB Q8HR [facility] Rx#:[id number] Output: Urine 501 Other: Voiding Method Indwelling Catheter Indwelling Catheter Indwelling Catheter # Voids 400 - Labs CBC & Chem 7: 07/12/23 06:09 07/12/23 06:09 Labs: Abnormal Lab Results - Last 24 Hours (Table) 07/12/23 07/12/23 07/13/23 Range/Units 16:37 20:30 05:51 POC Glucose (mg/dL) 338 H 356 H 294 H (70-110) mg/dL 07/13/23 Range/Units 11:16 POC Glucose (mg/dL) 297 H (70-110) mg/dL Microbiology - Last 24 Hours (Table) 07/09/23 21:30 Blood Culture - Preliminary Blood 07/09/23 21:30 Blood Culture Gram Stain - Final Blood Blood Culture - Final Gram Positive Bacilli 07/11/23 12:03 Blood Culture - Preliminary Blood
[2023-07-13 16:36] LABS: Glucose,Whole Blood 343 mg/dL (70-110)
[2023-07-13] MEDS: HYDROcodone/APAP 10-325MG 1 EACH TAB PO PRN (18:05)
--- NOTE | 2023-07-13 18:21 | CT ---
EXAMINATION TYPE: CT foot LT wo con CT DLP: 464 mGycm, Automated exposure control for dose reduction was used. DATE OF EXAM: 07/13/2023 5:48 PM COMPARISON none CLINICAL INDICATION:Female, 68 years old with history of r/o OM; PHH, wound, r/o MO TECHNIQUE: Axial images were obtained of the CT foot LT wo con, Additional coronal and sagittal refor matted images and soft tissue and bone window were obtained for review. . Contrast used: mL of , (None if empty) Oral contrast used: (None if empty) FINDINGS: Soft tissue swelling throughout the lower extremity. No evidence for organizing fluid colle ction. There is soft tissue wound along the plantar surface of the foot. Erosive changes to the fifth metatarsal head near one of the wound is present. No evidence of fracture. No dislocation. Atheroscl erosis of the arterial vasculature. Remote injury to the deltoid ligament. Remote injuries to the lig aments on the lateral ankle. These are demonstrated by calcifications. IMPRESSION: 1. Diffuse soft tissue swelling with plantar foot wounds and erosive changes to the head of the fift h metatarsal concerning for osteomyelitis. 2. No evidence of fracture.
[2023-07-13 19:38] LABS: Glucose,Whole Blood 346 mg/dL (70-110)
[2023-07-13] MEDS: INSULIN DETEMIR (LEVEMIR) 100 UNIT/ML SYR SQ SCH (20:32)
[2023-07-13] MEDS: LATANOPROST 0.005% OPHTH DROPS 2.5 ML BTL BOTH EYES SCH (20:32)
[2023-07-14] MEDS: metroNIDAZOLE-NS PMX 500 MG in SALINE 1 100ML.BAG IVPB SCH ×4 (00:40→23:51)
[2023-07-14] MEDS: CEFEPIME 2 GM in SODIUM CHLORIDE 0.9% 100 ML IVPB SCH ×3 (03:37→20:47)
[2023-07-14 05:50] LABS: Glucose,Whole Blood 221 mg/dL (70-110)
[2023-07-14] MEDS: INSULIN ASPART (NovoLOG) 100 UNIT/ML VIAL SQ SCH ×7 (06:41→20:47)
[2023-07-14] MEDS: PANTOPRAZOLE 40 MG TABLET PO SCH ×2 (06:42→17:52)
[2023-07-14] MEDS: METOPROLOL SUCCINATE (ER) 25 MG TAB.ER.24H PO SCH (09:18)
[2023-07-14] MEDS: HYDROPHILIC CREAM 180 GM TUBE TOPICAL SCH ×2 (09:18→20:48)
[2023-07-14] MEDS: ENOXAPARIN 40 MG/0.4 ML SYRINGE SQ SCH (09:18)
[2023-07-14] MEDS: ATORVASTATIN 20 MG TAB PO SCH (09:18)
[2023-07-14] MEDS: ASPIRIN 81 MG PO SCH (09:18)
[2023-07-14] MEDS: CLOPIDOGREL 75 MG TAB PO SCH (09:18)
[2023-07-14 09:26] LABS: Glucose,Whole Blood 195 mg/dL (70-110)
[2023-07-14] MEDS: HYDROcodone/APAP 10-325MG 1 EACH TAB PO PRN ×2 (09:33→16:27)
[2023-07-14 11:58] LABS: Glucose,Whole Blood 198 mg/dL (70-110)
[2023-07-14] MEDS: MORPHINE SULFATE 4 MG/ML SYRINGE IV PRN ×2 (12:53→23:50)
--- NOTE | 2023-07-14 15:32 | P.PN ---
Subjective Progress Note Date: 07/14/23 Patient is a 68-year-old female coronary artery disease status post stenting, permanent pacemaker, aortic valve replacement, systolic congestive heart failure with ejection fraction 40-45%, HTN, HLD, and COPD who presetned after a fall at home where she laid on the ground for 20 hours. On arrival to the ER she was slightly hypotensive with a blood pressure of 96/60. Laboratory analysis was remarkable for hemoglobin of 11, sodium 132, BUN 18, glucose 312, AST 63, CPK 942. Influenza A/B/RSV/COVID-[address] head showed no acute process with some nonspecific white matter changes likely secondary to chronic small vessel ischemic disease. Lumbar spine CT showed L4 5 grade 1 anterior listhesis of moderate to severe spinal canal stenosis, facet joint arthropathy with bilateral neural foraminal stenosis and moderate spinal canal stenosis at L3/4. 07/12 Patient seen and examined at bedside. Pain well controlled. She continues to decline working with PT due to her sacral and labial wounds. Hopeful plans for SNF. States prior could ambulate with a walker. CBC shows Hg 9.4. BMP shows glucose 215. A1c 10.7. Mag 1.6. Repeat BCx negative at 48H. 07/13 Patient seen and examined. Encouraged to work with PT. Seen with Dr. Aggarwal, wound draining purulent discharge from L foot, will obtain CT foot to r/o OM. 07/14 Patient seen and examined. CT foot showing concerns for 5th metatarsal OM. Wound culture pending. Continued on Cefepime and Flagyl. Vital signs reviewed General: nontoxic, no distress, appears at stated age Cardiovascular: S1S2 reg, no murmur Lungs: Decreased bs bilateral, no rhonchi, no rales , no accessory muscle use Ext: no gross muscle atrophy, no edema b/l lower extremities, no contractures Neuro: no focal neuro deficits Psych: Awake, oriented 3 appropriate affect Gram-negative bacteremia one of 2 cultures secondary to Left labial and buttock wounds with incontinence L 5th metatarsal OM Metabolic encephalopathy Rhabdo [place] Severe spinal stenosis Hypomagnesemia Coronary artery disease Aortic valve replacement Compensated chronic systolic congestive heart failure DM type II GERD Chronic: Fibromyalgia, GERD, COPD, Hypertension, Dyslipidemia, Sarcoidosis, Hernia, Gout, Chronic debility Based on my assessment of this patient, this patient meets a moderate complexity level of care. Patient has an acute diagnosis of gram negative bacteremia secondary to labial and buttocks wounds that poses a threat to life or bodily function. Gram-negative bacteremia one of 2 cultures secondary to left labial and buttock wounds with incontinence: Cefepime 2 g IV Q8H and Flagyl 500 mg IV Q8H. Continue Castro catheter. Wound care consulted. ID recommends awaiting repeat blood cultures finalizing. L 5th metatarsal OM: Continue IV antibiotics. Will likely need exterminator termite antibiotics on discharge. ID on board. Cultures pending. Metabolic encephalopathy: Resolved Rhabdo: Monitor renal function. Frequent Falls: PT and OT consulted. Severe spinal stenosis: Patient declining any spinal surgeries at this time. Follow up with Dr. Patel for pain management. Coronary artery disease: Aspirin 81 mg PO QD, Metoprolol 25 mg PO QD, Lipitor 20 mg PO QD. Aortic valve replacement Compensated chronic systolic CHF DM type II: Levemir 30 units QHS. Novolog 10 TID. Continue sliding scale GERD: Protonix 40 mg PO BID. Resolved: Hypomagnesemia I have reviewed the following oncology consultant notes: I have reviewed the results of the following tests: Foot CT. I have ordered the following tests: I have discussed the care of this patient with the following independent historian: I have independently interpreted the following test below: I have discussed the management of this patient with the following physician: Objective - Vital Signs Vital signs: Vital Signs Temp 98.8 F 07/14/23 14:23 Pulse 72 07/14/23 14:23 Resp 18 07/14/23 14:23 BP 122/68 07/14/23 14:23 Pulse Ox 99 07/14/23 14:23 FiO2 40 07/11/23 04:38 Intake & Output 07/13/23 07/14/23 07/14/23 18:59 06:59 18:59 Output Total 1000 1575 800 Balance -1000 1575 -800 Weight 132.449 kg Output: Urine 1000 1575 800 Other: Voiding Method Indwelling Catheter Indwelling Catheter Indwelling Catheter - Labs CBC & Chem 7: 07/12/23 06:09 07/12/23 06:09 Labs: Abnormal Lab Results - Last 24 Hours (Table) 07/13/23 07/13/23 07/14/23 Range/Units 16:34 19:37 05:49 POC Glucose (mg/dL) 343 H 346 H 221 H (70-110) mg/dL 07/14/23 07/14/23 Range/Units 09:25 11:56 POC Glucose (mg/dL) 195 H 198 H (70-110) mg/dL Microbiology - Last 24 Hours (Table) 07/11/23 12:03 Blood Culture - Preliminary Blood 07/09/23 21:30 Blood Culture - Preliminary Blood
--- NOTE | 2023-07-14 16:08 | P.PN ---
Subjective Progress Note Date: 07/14/23 Principal diagnosis: Wounds and positive blood culture Patient is a 68-year-old female with a past medical history significant for Asthma, Cancer, COPD, Diabetes Mellitus, Eye Disorder, Fibromyalgia, GERD/Reflux, Hyperlipidemia, Hypertension, presented to the hospital with weakness and fall patient noticed to have a low-grade fever did have a wound to the perineum bradycardia and left foot with a positive blood culture On today's evaluation that is 07/14/2023, the patient remains to be afebrile the patient is breathing comfortably on 3 L nasal cannula oxygen, the patient denies chest pain and no significant cough or sputum production, patient denies nausea/vomiting and no diarrhea, denies any worsening pain to the left foot Patient did have a white count of 6.26 creatinine 0.70 as of 07/12/2023 Objective - Vital Signs Vital signs: Vital Signs Temp 98.2 F 07/14/23 07:32 Pulse 77 07/14/23 11:24 Resp 20 07/14/23 11:24 BP 134/76 07/14/23 07:32 Pulse Ox 100 07/14/23 07:32 FiO2 40 07/11/23 04:38 Intake & Output 07/13/23 07/14/23 07/14/23 18:59 06:59 18:59 Output Total 1000 1575 800 Balance -1000 -1575 -800 Output: Urine 1000 1575 800 Other: Voiding Method Indwelling Catheter Indwelling Catheter Indwelling Catheter - Exam GENERAL DESCRIPTION: An elderly female lying in bed in no distress RESPIRATORY SYSTEM: Unlabored breathing , decreased breath sounds at bases HEART: S1 S2 regular rate and rhythm , ABDOMEN: Soft , no tenderness EXTREMITIES: Left foot is currently dressed no drainage on the dressing - Labs CBC & Chem 7: 07/12/23 06:09 07/12/23 06:09 Labs: Abnormal Lab Results - Last 24 Hours (Table) 07/13/23 07/13/23 07/14/23 Range/Units 16:34 19:37 05:49 POC Glucose (mg/dL) 343 H 346 H 221 H (70-110) mg/dL 07/14/23 Range/Units 09:25 POC Glucose (mg/dL) 195 H (70-110) mg/dL Microbiology - Last 24 Hours (Table) 07/11/23 12:03 Blood Culture - Preliminary Blood 07/09/23 21:30 Blood Culture - Preliminary Blood 07/09/23 21:30 Blood Culture Gram Stain - Final Blood Blood Culture - Final Gram Positive Bacilli Assessment and Plan (1) Positive blood culture Current Visit: Yes Status: Acute Code(s): R78.81 - BACTEREMIA SNOMED Code(s): 316893476 (2) Wound cellulitis Current Visit: Yes Status: Acute Code(s): L03.90 - CELLULITIS, UNSPECIFIED SNOMED Code(s): 065796054 (3) Foot osteomyelitis, left Current Visit: Yes Status: Acute Code(s): M86.9 - OSTEOMYELITIS, UNSPECIFIED SNOMED Code(s): 1416309860327222 Plan: 1patient with a positive blood culture with gram-positive bacilli is more likely skin contamination, no need for vancomycin blood cultures will be repeated document clearance 2-patient with a multiple wounds to the perianal gluteal area with some slough tissue , continue local wound care per wound care team 3-patient noticed to have a infected callus to the left foot is significant amount of purulent drainage has been cultured CT suggestive of osteomyelitis to the head of the fifth metatarsal 4-patient to continue cefepime and Flagyl await cultures to be finalized to determine discharge antibiotics will likely need a PICC line for outpatient IV antibiotics Dictation was produced using [employer] dictation software. please excuse any grammatical, word or spelling errors. Time with Patient: Less than 30
[2023-07-14 16:43] LABS: Glucose,Whole Blood 348 mg/dL (70-110)
[2023-07-14 19:46] LABS: Glucose,Whole Blood 378 mg/dL (70-110)
[2023-07-14] MEDS: LATANOPROST 0.005% OPHTH DROPS 2.5 ML BTL BOTH EYES SCH (20:48)
[2023-07-14] MEDS: INSULIN DETEMIR (LEVEMIR) 100 UNIT/ML SYR SQ SCH (21:31)
[2023-07-15] MEDS: MORPHINE SULFATE 4 MG/ML SYRINGE IV PRN ×3 (04:14→20:43)
[2023-07-15] MEDS: CEFEPIME 2 GM in SODIUM CHLORIDE 0.9% 100 ML IVPB SCH ×3 (04:15→21:10)
[2023-07-15 05:42] LABS: Glucose,Whole Blood 323 mg/dL (70-110)
[2023-07-15] MEDS: INSULIN ASPART (NovoLOG) 100 UNIT/ML VIAL SQ SCH ×7 (06:29→21:25)
[2023-07-15] MEDS: PANTOPRAZOLE 40 MG TABLET PO SCH ×2 (06:30→18:04)
[2023-07-15] MEDS: CLOPIDOGREL 75 MG TAB PO SCH (07:59)
[2023-07-15] MEDS: ATORVASTATIN 20 MG TAB PO SCH (07:59)
[2023-07-15] MEDS: METOPROLOL SUCCINATE (ER) 25 MG TAB.ER.24H PO SCH (07:59)
[2023-07-15] MEDS: HYDROPHILIC CREAM 180 GM TUBE TOPICAL SCH ×2 (07:59→21:15)
[2023-07-15] MEDS: metroNIDAZOLE-NS PMX 500 MG in SALINE 1 100ML.BAG IVPB SCH ×2 (07:59→18:01)
[2023-07-15] MEDS: ASPIRIN 81 MG PO SCH (07:59)
[2023-07-15] MEDS: ENOXAPARIN 40 MG/0.4 ML SYRINGE SQ SCH (07:59)
[2023-07-15] MEDS: HYDROcodone/APAP 10-325MG 1 EACH TAB PO PRN ×2 (08:10→18:02)
[2023-07-15 12:01] LABS: Glucose,Whole Blood 371 mg/dL (70-110)
--- NOTE | 2023-07-15 12:05 | P.PN ---
Subjective Progress Note Date: 07/15/23 Patient is a 68-year-old female coronary artery disease status post stenting, permanent pacemaker, aortic valve replacement, systolic congestive heart failure with ejection fraction 40-45%, HTN, HLD, and COPD who presetned after a fall at home where she laid on the ground for 20 hours. On arrival to the ER she was slightly hypotensive with a blood pressure of 96/60. Laboratory analysis was remarkable for hemoglobin of 11, sodium 132, BUN 18, glucose 312, AST 63, CPK 942. Influenza A/B/RSV/COVID-[address] head showed no acute process with some nonspecific white matter changes likely secondary to chronic small vessel ischemic disease. Lumbar spine CT showed L4 5 grade 1 anterior listhesis of moderate to severe spinal canal stenosis, facet joint arthropathy with bilateral neural foraminal stenosis and moderate spinal canal stenosis at L3/4. 07/12 Patient seen and examined at bedside. Pain well controlled. She continues to decline working with PT due to her sacral and labial wounds. Hopeful plans for SNF. States prior could ambulate with a walker. CBC shows Hg 9.4. BMP shows glucose 215. A1c 10.7. Mag 1.6. Repeat BCx negative at 48H. 07/13 Patient seen and examined. Encouraged to work with PT. Seen with Dr. Aggarwal, wound draining purulent discharge from L foot, will obtain CT foot to r/o OM. 07/14 Patient seen and examined. CT foot showing concerns for 5th metatarsal OM. Wound culture pending. Continued on Cefepime and Flagyl. 07/15 Patient seen and examined. Awaiting wound culture results. Plans for PICC and likely SNF on discharge. Vital signs reviewed General: nontoxic, no distress, appears at stated age Cardiovascular: S1S2 reg, no murmur Lungs: Decreased bs bilateral, no rhonchi, no rales , no accessory muscle use Ext: no gross muscle atrophy, no edema b/l lower extremities, no contractures Neuro: no focal neuro deficits Psych: Awake, oriented 3 appropriate affect Gram-negative bacteremia one of 2 cultures secondary to Left labial and buttock wounds with incontinence L 5th metatarsal OM Metabolic encephalopathy Rhabdo [place] Severe spinal stenosis Hypomagnesemia Coronary artery disease Aortic valve replacement Compensated chronic systolic congestive heart failure DM type II GERD Chronic: Fibromyalgia, GERD, COPD, Hypertension, Dyslipidemia, Sarcoidosis, Hernia, Gout, Chronic debility Based on my assessment of this patient, this patient meets a moderate complexity level of care. Patient has an acute diagnosis of gram negative bacteremia secondary to labial and buttocks wounds that poses a threat to life or bodily function. Gram-negative bacteremia one of 2 cultures secondary to left labial and buttock wounds with incontinence: Cefepime 2 g IV Q8H and Flagyl 500 mg IV Q8H. Continue Castro catheter. Wound care consulted. ID recommends awaiting repeat blood cultures finalizing. L 5th metatarsal OM: Continue IV antibiotics. Will likely need nursing home admissions director antibiotics on discharge. ID on board. Cultures pending. Metabolic encephalopathy: Resolved Rhabdo: Monitor renal function. Frequent Falls: PT and OT consulted. Severe spinal stenosis: Patient declining any spinal surgeries at this time. Follow up with Dr. Patel for pain management. Coronary artery disease: Aspirin 81 mg PO QD, Metoprolol 25 mg PO QD, Lipitor 20 mg PO QD. Aortic valve replacement Compensated chronic systolic CHF DM type II: Levemir 30 units QHS. Novolog 10 TID. Continue sliding scale GERD: Protonix 40 mg PO BID. Resolved: Hypomagnesemia I have reviewed the following media consultant notes: ID note. I have reviewed the results of the following tests: I have ordered the following tests: I have discussed the care of this patient with the following independent historian: I have independently interpreted the following test below: I have discussed the management of this patient with the following physician: Objective - Vital Signs Vital signs: Vital Signs Temp 97.8 F 07/15/23 07:45 Pulse 78 07/15/23 07:45 Resp 19 07/15/23 07:45 BP 112/62 07/15/23 07:45 Pulse Ox 99 07/15/23 07:45 FiO2 40 07/11/23 04:38 Intake & Output 07/14/23 07/15/23 07/15/23 18:59 06:59 18:59 Intake Total 500 200 Output Total 1150 1075 675 Balance -650 -7187 -211 Weight 132.449 kg Intake: Oral 500 200 Output: Urine 1150 1075 675 Other: Voiding Method Indwelling Catheter Indwelling Catheter - Labs CBC & Chem 7: 07/12/23 06:09 07/12/23 06:09 Labs: Abnormal Lab Results - Last 24 Hours (Table) 07/14/23 07/14/23 07/15/23 Range/Units 16:41 19:45 05:40 POC Glucose (mg/dL) 348 H 378 H 323 H (70-110) mg/dL 07/15/23 Range/Units 11:59 POC Glucose (mg/dL) 371 H (70-110) mg/dL Microbiology - Last 24 Hours (Table) 07/13/23 10:27 Gram Stain - Final Foot - Left Wound Culture - Final 07/11/23 12:03 Blood Culture - Preliminary Blood
[2023-07-15 16:31] LABS: Glucose,Whole Blood 371 mg/dL (70-110)
[2023-07-15 20:30] LABS: Glucose,Whole Blood 365 mg/dL (70-110)
[2023-07-15] MEDS: LATANOPROST 0.005% OPHTH DROPS 2.5 ML BTL BOTH EYES SCH (21:10)
[2023-07-15] MEDS: INSULIN DETEMIR (LEVEMIR) 100 UNIT/ML SYR SQ SCH (21:26)
--- NOTE | 2023-07-15 23:01 | P.PN ---
Subjective Progress Note Date: 07/15/23 Principal diagnosis: Wounds and positive blood culture Patient is a 68-year-old female with a past medical history significant for Asthma, Cancer, COPD, Diabetes Mellitus, Eye Disorder, Fibromyalgia, GERD/Reflux, Hyperlipidemia, Hypertension, presented to the hospital with weakness and fall patient noticed to have a low-grade fever did have a wound to the perineum bradycardia and left foot with a positive blood culture On today's evaluation that is 07/15/2023, the patient continues to be afebrile the patient is breathing comfortably on 3LNC oxygen, the patient denies chest pain or cough, patient denies abdominal pain and no nausea/vomiting and no diarrhea has been reported, Pt denies any worsening pain to the left foot Patient did have a white count of 6.26 creatinine 0.70 as of 07/12/2023 no labs done today Objective - Vital Signs Vital signs: Vital Signs Temp 97.8 F 07/15/23 07:45 Pulse 78 07/15/23 07:45 Resp 19 07/15/23 07:45 BP 112/62 07/15/23 07:45 Pulse Ox 99 07/15/23 07:45 FiO2 40 07/11/23 04:38 Intake & Output 07/14/23 07/15/23 07/15/23 18:59 06:59 18:59 Intake Total 500 200 Output Total 1150 1075 675 Balance -650 1070 -556 Weight 132.449 kg Intake: Oral 500 200 Output: Urine 1150 1075 675 Other: Voiding Method Indwelling Catheter Indwelling Catheter - Exam GENERAL DESCRIPTION: An elderly female lying in bed in no distress RESPIRATORY SYSTEM: Unlabored breathing , decreased breath sounds at bases HEART: S1 S2 regular rate and rhythm , ABDOMEN: Soft , no tenderness EXTREMITIES: Left foot is currently dressed no drainage on the dressing - Labs CBC & Chem 7: 07/12/23 06:09 07/12/23 06:09 Labs: Abnormal Lab Results - Last 24 Hours (Table) 07/14/23 07/14/23 07/15/23 Range/Units 16:41 19:45 05:40 POC Glucose (mg/dL) 348 H 378 H 323 H (70-110) mg/dL 07/15/23 Range/Units 11:59 POC Glucose (mg/dL) 371 H (70-110) mg/dL Microbiology - Last 24 Hours (Table) 07/13/23 10:27 Anaerobic Culture - Final Foot - Left 07/09/23 21:30 Blood Culture - Final Blood 07/13/23 10:27 Gram Stain - Final Foot - Left Wound Culture - Final 07/11/23 12:03 Blood Culture - Preliminary Blood Assessment and Plan (1) Positive blood culture Current Visit: Yes Status: Acute Code(s): R78.81 - BACTEREMIA SNOMED Code(s): 148663514 (2) Wound cellulitis Current Visit: Yes Status: Acute Code(s): L03.90 - CELLULITIS, UNSPECIFIED SNOMED Code(s): 770182210 (3) Foot osteomyelitis, left Current Visit: Yes Status: Acute Code(s): M86.9 - OSTEOMYELITIS, UNSPECIFIED SNOMED Code(s): 2495502537832571 Plan: 1patient with a positive blood culture with gram-positive bacilli is more likely skin contamination, no need for vancomycin blood cultures will be repeated document clearance 2-patient with a multiple wounds to the perianal gluteal area with some slough tissue , continue local wound care per wound care team 3-patient noticed to have a infected callus to the left foot is significant amount of purulent drainage has been cultured which are currently pending , CT suggestive of osteomyelitis to the head of the fifth metatarsal 4-patient to continue cefepime and Flagyl while waiting for cultures to be finalized to determine discharge antibiotics Dictation was produced using [employer] dictation software. please excuse any grammatical, word or spelling errors. Time with Patient: Less than 30
[2023-07-16] MEDS: metroNIDAZOLE-NS PMX 500 MG in SALINE 1 100ML.BAG IVPB SCH ×3 (00:36→17:18)
[2023-07-16] MEDS: MORPHINE SULFATE 4 MG/ML SYRINGE IV PRN ×2 (02:21→16:57)
[2023-07-16] MEDS: CEFEPIME 2 GM in SODIUM CHLORIDE 0.9% 100 ML IVPB SCH ×3 (04:13→21:25)
[2023-07-16] MEDS: HYDROcodone/APAP 10-325MG 1 EACH TAB PO PRN ×2 (05:33→12:00)
[2023-07-16 05:41] LABS: Glucose,Whole Blood 309 mg/dL (70-110)
[2023-07-16] MEDS: INSULIN ASPART (NovoLOG) 100 UNIT/ML VIAL SQ SCH ×7 (05:52→21:26)
[2023-07-16] MEDS: PANTOPRAZOLE 40 MG TABLET PO SCH ×2 (06:35→17:17)
[2023-07-16] MEDS: CLOPIDOGREL 75 MG TAB PO SCH (09:12)
[2023-07-16] MEDS: ASPIRIN 81 MG PO SCH (09:12)
[2023-07-16] MEDS: METOPROLOL SUCCINATE (ER) 25 MG TAB.ER.24H PO SCH (09:12)
[2023-07-16] MEDS: ATORVASTATIN 20 MG TAB PO SCH (09:12)
[2023-07-16] MEDS: ENOXAPARIN 40 MG/0.4 ML SYRINGE SQ SCH (09:13)
[2023-07-16] MEDS: HYDROPHILIC CREAM 180 GM TUBE TOPICAL SCH ×2 (09:15→21:26)
[2023-07-16 09:49] LABS: Basophils # (A) 0.06 X 10*3/uL (0.00-0.10); Basophils % (A) 0.8 %; Eosinophils % (A) 3.9 %; HCT 31.2 % (37.2-46.3); HGB 9.6 d/dL (12.0-15.0); Lymphocytes # (A) 0.92 X 10*3/uL (0.90-5.00); Lymphocytes % (A) 11.9 %; MCH 29.3 pg (27.0-32.0); MCHC 30.8 d/dL (32.0-37.0); MCV 95.1 FL (80.0-97.0); Mean Platelet Volume 10.4 FL (9.5-12.2); Monocytes # (A) 0.63 X 10*3/uL (0.20-1.00); Monocytes % (A) 8.1 %; NRBC Per 100 WBC 0 X 10*3/uL (0.00-0.01); Neutrophils # (A) 5.77 X 10*3/uL (1.80-7.70); Neutrophils % (A) 74.5 %; Platelet Count 256 X 10*3/uL (140-440); RBC 3.28 X 10*6/uL (4.10-5.20); RDW 14.5 % (11.5-14.5); WBC 7.74 X 10*3/uL (4.50-10.00)
[2023-07-16 10:08] LABS: Blood Urea Nitrogen 20.3 mg/dL (9.0-27.0); Glucose 317 mg/dL (70-110)
[2023-07-16 10:09] LABS: ALT 17 U/L (8-44); AST 17 U/L (13-35); Albumin 2.8 d/dL (3.8-4.9); Alkaline Phosphatase 81 U/L (41-126); Calcium 9.7 mg/dL (8.7-10.3); Carbon Dioxide 30.3 mmol/L (21.6-31.8); Chloride 95 mmol/L (96-109); Globulin 3.1 d/dL (1.6-3.3); Potassium 4.6 mmol/L (3.5-5.5); Sodium 135 mmol/L (135-145); Total Bilirubin 0.2 mg/dL (0.3-1.2); Total Protein 5.9 d/dL (6.2-8.2)
[2023-07-16 10:43] LABS: Erythrocyte Sedimentation Rate 74 mm/Hr (0-30)
[2023-07-16 11:38] LABS: Glucose,Whole Blood 322 mg/dL (70-110)
[2023-07-16] MEDS ORDERED: MAGNESIUM HYDROXIDE 2,400 MG/30 ML CUP PO PRN (12:40)
--- NOTE | 2023-07-16 12:49 | P.PN ---
Subjective Progress Note Date: 07/16/23 Patient is a 68-year-old female coronary artery disease status post stenting, permanent pacemaker, aortic valve replacement, systolic congestive heart failure with ejection fraction 40-45%, HTN, HLD, and COPD who presetned after a fall at home where she laid on the ground for 20 hours. On arrival to the ER she was slightly hypotensive with a blood pressure of 96/60. Laboratory analysis was remarkable for hemoglobin of 11, sodium 132, BUN 18, glucose 312, AST 63, CPK 942. Influenza A/B/RSV/COVID-[address] head showed no acute process with some nonspecific white matter changes likely secondary to chronic small vessel ischemic disease. Lumbar spine CT showed L4 5 grade 1 anterior listhesis of moderate to severe spinal canal stenosis, facet joint arthropathy with bilateral neural foraminal stenosis and moderate spinal canal stenosis at L3/4. 07/12 Patient seen and examined at bedside. Pain well controlled. She continues to decline working with PT due to her sacral and labial wounds. Hopeful plans for SNF. States prior could ambulate with a walker. CBC shows Hg 9.4. BMP shows glucose 215. A1c 10.7. Mag 1.6. Repeat BCx negative at 48H. 07/13 Patient seen and examined. Encouraged to work with PT. Seen with Dr. Aggarwal, wound draining purulent discharge from L foot, will obtain CT foot to r/o OM. 07/14 Patient seen and examined. CT foot showing concerns for 5th metatarsal OM. Wound culture pending. Continued on Cefepime and Flagyl. 07/15 Patient seen and examined. Awaiting wound culture results. Plans for PICC and likely SNF on discharge. 07/16 Patient was seen and examined. Requesting milk of mag for constipation. CBC shows Hg 9.6. CMP shows Cl 95, glucose 317, albumin 2.8. ESR 74. CRP 4.3. Vital signs reviewed General: nontoxic, no distress, appears at stated age Cardiovascular: S1S2 reg, no murmur Lungs: Decreased bs bilateral, no rhonchi, no rales , no accessory muscle use Ext: no gross muscle atrophy, no edema b/l lower extremities, no contractures Neuro: no focal neuro deficits Psych: Awake, oriented 3 appropriate affect Gram-negative bacteremia one of 2 cultures secondary to Left labial and buttock wounds with incontinence L 5th metatarsal OM Metabolic encephalopathy Rhabdo [place] Severe spinal stenosis Hypomagnesemia Coronary artery disease Aortic valve replacement Compensated chronic systolic congestive heart failure DM type II GERD Chronic: Fibromyalgia, GERD, COPD, Hypertension, Dyslipidemia, Sarcoidosis, Hernia, Gout, Chronic debility Based on my assessment of this patient, this patient meets a moderate complexity level of care. Patient has an acute diagnosis of gram negative bacteremia secondary to labial and buttocks wounds that poses a threat to life or bodily function. Gram-negative bacteremia one of 2 cultures secondary to left labial and buttock wounds with incontinence: Cefepime 2 g IV Q8H and Flagyl 500 mg IV Q8H. Continue Castro catheter. Wound care consulted. ID recommends awaiting repeat blood c ultures finalizing. L 5th metatarsal OM: Continue IV antibiotics. Will likely need longterm antib iotics on discharge. ID on board. Cultures pending. Metabolic encephalopathy: Resolved Rhabdo: Monitor renal function. Frequent Falls: PT and OT consulted. Severe spinal stenosis: Patient declining any spinal surgeries at this time. Follow up with Dr. Patel for pain management. Coronary artery disease: Aspirin 81 mg PO QD, Metoprolol 25 mg PO QD, Lipitor 20 mg PO QD. Aortic valve replacement Compensated chronic systolic CHF DM type II: Levemir 30 units QHS. Novolog 15 TID. Continue sliding scale GERD: Protonix 40 mg PO BID. Resolved: Hypomagnesemia I have reviewed the following decorator consultant notes: I have reviewed the results of the following tests: CBC, CMP, ESR, CRP I have ordered the following tests: I have discussed the care of this patient with the following independent historian: I have independently interpreted the following test below: I have discussed the management of this patient with the following physician: Objective - Vital Signs Vital signs: Vital Signs Temp 98.4 F 07/16/23 07:30 Pulse 78 07/16/23 09:30 Resp 17 07/16/23 09:30 BP 146/77 07/16/23 07:30 Pulse Ox 99 07/16/23 07:30 FiO2 40 07/11/23 04:38 Intake & Output 07/15/23 07/16/23 07/16/23 18:59 06:59 18:59 Intake Total 750 Output Total 1475 1000 Balance -725 -1000 Intake: Oral 750 Output: Urine 1475 1000 Other: Voiding Method Indwelling Catheter Indwelling Catheter Indwelling Catheter - Labs CBC & Chem 7: 07/16/23 05:26 07/16/23 05:26 Labs: Abnormal Lab Results - Last 24 Hours (Table) 07/15/23 07/15/23 07/16/23 Range/Units 16:30 20:27 05:26 RBC 3.28 L (4.10-5.20) X 10*6/uL Hgb 9.6 L (12.0-15.0) d/dL Hct 31.2 L (37.2-46.3) % MCHC 30.8 L (32.0-37.0) d/dL ESR 74 H (0-30) mm/Hr Chloride (96-109) mmol/L BUN/Creatinine Ratio (12.00-20.00) Ratio Glucose (70-110) mg/dL POC Glucose (mg/dL) 371 H 365 H (70-110) mg/dL Total Bilirubin (0.3-1.2) mg/dL C-Reactive Protein (0.00-0.80) mg/dL Total Protein (6.2-8.2) d/dL Albumin (3.8-4.9) d/dL Albumin/Globulin Ratio (1.60-3.17) Ratio 07/16/23 07/16/23 07/16/23 Range/Units 05:26 05:36 11:36 RBC (4.10-5.20) X 10*6/uL Hgb (12.0-15.0) d/dL Hct (37.2-46.3) % MCHC (32.0-37.0) d/dL ESR (0-30) mm/Hr Chloride 95 L (96-109) mmol/L BUN/Creatinine Ratio 29.00 H (12.00-20.00) Ratio Glucose 317 H (70-110) mg/dL POC Glucose (mg/dL) 309 H 322 H (70-110) mg/dL Total Bilirubin 0.2 L (0.3-1.2) mg/dL C-Reactive Protein 4.30 H (0.00-0.80) mg/dL Total Protein 5.9 L (6.2-8.2) d/dL Albumin 2.8 L (3.8-4.9) d/dL Albumin/Globulin Ratio 0.90 L (1.60-3.17) Ratio Microbiology - Last 24 Hours (Table) 07/13/23 10:27 Anaerobic Culture - Final Foot - Left 07/09/23 21:30 Blood Culture - Final Blood 07/13/23 10:27 Gram Stain - Final Foot - Left Wound Culture - Final
[2023-07-16] MEDS ORDERED: VANCOMYCIN IV PER PHARMACY 1 EACH MISC MISCELLANE PRN (13:24)
--- NOTE | 2023-07-16 13:24 | P.PN ---
Subjective Progress Note Date: 07/16/23 Principal diagnosis: Wounds and positive blood culture Patient is a 68-year-old female with a past medical history significant for Asthma, Cancer, COPD, Diabetes Mellitus, Eye Disorder, Fibromyalgia, GERD/Reflux, Hyperlipidemia, Hypertension, presented to the hospital with weakness and fall patient noticed to have a low-grade fever did have a wound to the perineum bradycardia and left foot with a positive blood culture On today's evaluation that is 07/16/2023, the patient remains to be afebrile the patient is breathing comfortably on 2LNC supplemental oxygen, the patient denies chest pain and no significant cough, patient denies abdominal pain and no nausea/vomiting or diarrhea Pt denies any worsening pain to the left foot Patient did have a white count of 7.74 creatinine 0.70, local cultures with gram negative x 2 and enterococus Objective - Vital Signs Vital signs: Vital Signs Temp 98.4 F 07/16/23 07:30 Pulse 78 07/16/23 09:30 Resp 17 07/16/23 09:30 BP 146/77 07/16/23 07:30 Pulse Ox 99 07/16/23 07:30 FiO2 40 07/11/23 04:38 Intake & Output 07/15/23 07/16/23 07/16/23 18:59 06:59 18:59 Intake Total 750 Output Total 1475 1000 Balance -725 -1000 Intake: Oral 750 Output: Urine 1475 1000 Other: Voiding Method Indwelling Catheter Indwelling Catheter Indwelling Catheter - Exam GENERAL DESCRIPTION: An elderly female lying in bed in no distress RESPIRATORY SYSTEM: Unlabored breathing , decreased breath sounds at bases HEART: S1 S2 regular rate and rhythm , ABDOMEN: Soft , no tenderness EXTREMITIES: Left foot is currently dressed no drainage on the dressing - Labs CBC & Chem 7: 07/16/23 05:26 07/16/23 05:26 Labs: Abnormal Lab Results - Last 24 Hours (Table) 07/15/23 07/15/23 07/16/23 Range/Units 16:30 20:27 05:26 RBC 3.28 L (4.10-5.20) X 10*6/uL Hgb 9.6 L (12.0-15.0) d/dL Hct 31.2 L (37.2-46.3) % MCHC 30.8 L (32.0-37.0) d/dL ESR 74 H (0-30) mm/Hr Chloride (96-109) mmol/L BUN/Creatinine Ratio (12.00-20.00) Ratio Glucose (70-110) mg/dL POC Glucose (mg/dL) 371 H 365 H (70-110) mg/dL Total Bilirubin (0.3-1.2) mg/dL C-Reactive Protein (0.00-0.80) mg/dL Total Protein (6.2-8.2) d/dL Albumin (3.8-4.9) d/dL Albumin/Globulin Ratio (1.60-3.17) Ratio 07/16/23 07/16/23 07/16/23 Range/Units 05:26 05:36 11:36 RBC (4.10-5.20) X 10*6/uL Hgb (12.0-15.0) d/dL Hct (37.2-46.3) % MCHC (32.0-37.0) d/dL ESR (0-30) mm/Hr Chloride 95 L (96-109) mmol/L BUN/Creatinine Ratio 29.00 H (12.00-20.00) Ratio Glucose 317 H (70-110) mg/dL POC Glucose (mg/dL) 309 H 322 H (70-110) mg/dL Total Bilirubin 0.2 L (0.3-1.2) mg/dL C-Reactive Protein 4.30 H (0.00-0.80) mg/dL Total Protein 5.9 L (6.2-8.2) d/dL Albumin 2.8 L (3.8-4.9) d/dL Albumin/Globulin Ratio 0.90 L (1.60-3.17) Ratio Microbiology - Last 24 Hours (Table) 07/13/23 10:27 Anaerobic Culture - Final Foot - Left 07/09/23 21:30 Blood Culture - Final Blood 07/13/23 10:27 Gram Stain - Final Foot - Left Wound Culture - Final Assessment and Plan (1) Positive blood culture Current Visit: Yes Status: Acute Code(s): R78.81 - BACTEREMIA SNOMED Code(s): 626443417 (2) Wound cellulitis Current Visit: Yes Status: Acute Code(s): L03.90 - CELLULITIS, UNSPECIFIED SNOMED Code(s): 990911065 (3) Foot osteomyelitis, left Current Visit: Yes Status: Acute Code(s): M86.9 - OSTEOMYELITIS, UNSPECIFIED SNOMED Code(s): 6809936837774752 Plan: 1patient with a positive blood culture with gram-positive bacilli is more likely skin contamination, no need for vancomycin blood cultures will be repeated document clearance 2-patient with a multiple wounds to the perianal gluteal area with some slough tissue , continue local wound care per wound care team 3-patient noticed to have a infected callus to the left foot is significant amount of purulent drainage has been cultured which are currently growing gram negative x 2 and enterococus , microlab has been asked to work up these 3 pathogens , CT suggestive of osteomyelitis to the head of the fifth metatarsal 4-patient to continue cefepime , Flagyl will add vancomycin to cover for enterocous while waiting for cultures to be finalized to determine discharge antibiotics Dictation was produced using [employer] dictation software. please excuse any grammatical, word or spelling errors. Time with Patient: Greater than 30
[2023-07-16] MEDS ORDERED: VANCOMYCIN 2,000 MG in SODIUM CHLORIDE 0.9% 500 ML 500 ML IVPB SCH (13:30)
[2023-07-16] MEDS: VANCOMYCIN 2,000 MG in SODIUM CHLORIDE 0.9% 500 ML 500 ML IVPB SCH (15:14)
[2023-07-16 16:42] LABS: Glucose,Whole Blood 283 mg/dL (70-110)
[2023-07-16 20:59] LABS: Glucose,Whole Blood 258 mg/dL (70-110)
[2023-07-16] MEDS: INSULIN DETEMIR (LEVEMIR) 100 UNIT/ML SYR SQ SCH (21:25)
[2023-07-16] MEDS: LATANOPROST 0.005% OPHTH DROPS 2.5 ML BTL BOTH EYES SCH (21:27)
[2023-07-17] MEDS: metroNIDAZOLE-NS PMX 500 MG in SALINE 1 100ML.BAG IVPB SCH ×4 (00:54→23:35)
[2023-07-17] MEDS: CEFEPIME 2 GM in SODIUM CHLORIDE 0.9% 100 ML IVPB SCH ×3 (03:40→21:54)
[2023-07-17 05:38] LABS: African American GFR (CKD) >90 (>60 ml/min/1.73 sqM); Non-African American GFR(CKD) >90 (>60 ml/min/1.73 sqM)
[2023-07-17 05:42] LABS: Glucose,Whole Blood 182 mg/dL (70-110)
[2023-07-17] MEDS: VANCOMYCIN 2,000 MG in SODIUM CHLORIDE 0.9% 500 ML 500 ML IVPB SCH ×2 (06:05→18:03)
[2023-07-17] MEDS: INSULIN ASPART (NovoLOG) 100 UNIT/ML VIAL SQ SCH ×7 (06:05→21:55)
[2023-07-17] MEDS: PANTOPRAZOLE 40 MG TABLET PO SCH ×2 (06:06→16:37)
[2023-07-17] MEDS: CLOPIDOGREL 75 MG TAB PO SCH (08:35)
[2023-07-17] MEDS: ATORVASTATIN 20 MG TAB PO SCH (08:35)
[2023-07-17] MEDS: ASPIRIN 81 MG PO SCH (08:35)
[2023-07-17] MEDS: METOPROLOL SUCCINATE (ER) 25 MG TAB.ER.24H PO SCH (08:35)
[2023-07-17] MEDS: ENOXAPARIN 40 MG/0.4 ML SYRINGE SQ SCH (08:35)
[2023-07-17] MEDS: HYDROPHILIC CREAM 180 GM TUBE TOPICAL SCH ×2 (08:36→21:56)
[2023-07-17] MEDS: HYDROcodone/APAP 10-325MG 1 EACH TAB PO PRN ×2 (09:11→22:03)
[2023-07-17 11:21] LABS: Glucose,Whole Blood 337 mg/dL (70-110)
--- NOTE | 2023-07-17 11:24 | P.PN ---
Subjective Progress Note Date: 07/17/23 Patient is a 68-year-old female coronary artery disease status post stenting, permanent pacemaker, aortic valve replacement, systolic congestive heart failure with ejection fraction 40-45%, HTN, HLD, and COPD who presetned after a fall at home where she laid on the ground for 20 hours. On arrival to the ER she was slightly hypotensive with a blood pressure of 96/60. Laboratory analysis was remarkable for hemoglobin of 11, sodium 132, BUN 18, glucose 312, AST 63, CPK 942. Influenza A/B/RSV/COVID-[address] head showed no acute process with some nonspecific white matter changes likely secondary to chronic small vessel ischemic disease. Lumbar spine CT showed L4 5 grade 1 anterior listhesis of moderate to severe spinal canal stenosis, facet joint arthropathy with bilateral neural foraminal stenosis and moderate spinal canal stenosis at L3/4. 07/12 Patient seen and examined at bedside. Pain well controlled. She continues to decline working with PT due to her sacral and labial wounds. Hopeful plans for SNF. States prior could ambulate with a walker. CBC shows Hg 9.4. BMP shows glucose 215. A1c 10.7. Mag 1.6. Repeat BCx negative at 48H. 07/13 Patient seen and examined. Encouraged to work with PT. Seen with Dr. Aggarwal, wound draining purulent discharge from L foot, will obtain CT foot to r/o OM. 07/14 Patient seen and examined. CT foot showing concerns for 5th metatarsal OM. Wound culture pending. Continued on Cefepime and Flagyl. 07/15 Patient seen and examined. Awaiting wound culture results. Plans for PICC and likely SNF on discharge. 07/16 Patient was seen and examined. Requesting milk of mag for constipation. CBC shows Hg 9.6. CMP shows Cl 95, glucose 317, albumin 2.8. ESR 74. CRP 4.3. 07/17 Patient was seen and examined. WCx growing proteus, group D enterococcus, GNB. Infectious disease added Vancomycin to antibiotic regimen. Cr 0.48. Vital signs reviewed General: nontoxic, no distress, appears at stated age Cardiovascular: S1S2 reg, no murmur Lungs: Decreased bs bilateral, no rhonchi, no rales , no accessory muscle use Ext: no gross muscle atrophy, no edema b/l lower extremities, no contractures Neuro: no focal neuro deficits Psych: Awake, oriented 3 appropriate affect Gram-negative bacteremia one of 2 cultures secondary to Left labial and buttock wounds with incontinence L 5th metatarsal OM Metabolic encephalopathy Rhabdo [place] Severe spinal stenosis Hypomagnesemia Coronary artery disease Aortic valve replacement Compensated chronic systolic congestive heart failure DM type II GERD Chronic: Fibromyalgia, GERD, COPD, Hypertension, Dyslipidemia, Sarcoidosis, Hernia, Gout, Chronic debility Based on my assessment of this patient, this patient meets a high complexity level of care. Patient has an acute diagnosis of gram negative bacteremia secondary to labial and buttocks wounds that poses a threat to life or bodily function. Gram-negative bacteremia one of 2 cultures secondary to left labial and buttock wounds with incontinence: Cefepime 2 g IV Q8H (D6) and Flagyl 500 mg IV Q8H (D6). Vancomycin dosed per pharmacy (D1). Continue Castro catheter. Wound care consulted. ID recommends awaiting repeat blood cultures finalizing. L 5th metatarsal OM: Abx as above. Will likely need ad terminal makeup operator antibiotics on discharge. ID on board. Cultures sensitivity pending. Metabolic encephalopathy: Resolved Rhabdo: Monitor renal function. Frequent Falls: PT and OT consulted. Severe spinal stenosis: Patient declining any spinal surgeries at this time. Follow up with Dr. Patel for pain management. Coronary artery disease: Aspirin 81 mg PO QD, Metoprolol 25 mg PO QD, Lipitor 20 mg PO QD. Aortic valve replacement Compensated chronic systolic CHF DM type II: Levemir 30 units QHS. Novolog 15 TID. Continue sliding scale GERD: Protonix 40 mg PO BID. Resolved: Hypomagnesemia I have reviewed the following market consultant notes: I have reviewed the results of the following tests: Renal function I have ordered the following tests: I have discussed the care of this patient with the following independent historian: I have independently interpreted the following test below: I have discussed the management of this patient with the following physician: Vancomycin - nephrotoxic - daily renal function monitoring Objective - Vital Signs Vital signs: Vital Signs Temp 98.5 F 07/17/23 07:35 Pulse 77 07/17/23 07:35 Resp 16 07/17/23 07:35 BP 158/75 07/17/23 07:35 Pulse Ox 100 07/17/23 07:35 FiO2 40 07/11/23 04:38 Intake & Output 07/16/23 07/17/23 07/17/23 18:59 06:59 18:59 Output Total 500 1700 Balance -500 -1700 Output: Urine 500 1700 Other: Voiding Method Indwelling Catheter Indwelling Catheter - Labs CBC & Chem 7: 07/16/23 05:26 07/17/23 04:44 Labs: Abnormal Lab Results - Last 24 Hours (Table) 07/16/23 07/16/23 07/16/23 Range/Units 05:26 05:26 11:36 RBC 3.28 L (4.10-5.20) X 10*6/uL Hgb 9.6 L (12.0-15.0) d/dL Hct 31.2 L (37.2-46.3) % MCHC 30.8 L (32.0-37.0) d/dL ESR 74 H (0-30) mm/Hr Chloride 95 L (96-109) mmol/L Creatinine (0.52-1.04) mg/dL BUN/Creatinine Ratio 29.00 H (12.00-20.00) Ratio Glucose 317 H (70-110) mg/dL POC Glucose (mg/dL) 322 H (70-110) mg/dL Total Bilirubin 0.2 L (0.3-1.2) mg/dL C-Reactive Protein 4.30 H (0.00-0.80) mg/dL Total Protein 5.9 L (6.2-8.2) d/dL Albumin 2.8 L (3.8-4.9) d/dL Albumin/Globulin Ratio 0.90 L (1.60-3.17) Ratio 07/16/23 07/16/23 07/17/23 Range/Units 16:40 20:55 04:44 RBC (4.10-5.20) X 10*6/uL Hgb (12.0-15.0) d/dL Hct (37.2-46.3) % MCHC (32.0-37.0) d/dL ESR (0-30) mm/Hr Chloride (96-109) mmol/L Creatinine 0.48 L (0.52-1.04) mg/dL BUN/Creatinine Ratio (12.00-20.00) Ratio Glucose (70-110) mg/dL POC Glucose (mg/dL) 283 H 258 H (70-110) mg/dL Total Bilirubin (0.3-1.2) mg/dL C-Reactive Protein (0.00-0.80) mg/dL Total Protein (6.2-8.2) d/dL Albumin (3.8-4.9) d/dL Albumin/Globulin Ratio (1.60-3.17) Ratio 07/17/23 Range/Units 05:40 RBC (4.10-5.20) X 10*6/uL Hgb (12.0-15.0) d/dL Hct (37.2-46.3) % MCHC (32.0-37.0) d/dL ESR (0-30) mm/Hr Chloride (96-109) mmol/L Creatinine (0.52-1.04) mg/dL BUN/Creatinine Ratio (12.00-20.00) Ratio Glucose (70-110) mg/dL POC Glucose (mg/dL) 182 H (70-110) mg/dL Total Bilirubin (0.3-1.2) mg/dL C-Reactive Protein (0.00-0.80) mg/dL Total Protein (6.2-8.2) d/dL Albumin (3.8-4.9) d/dL Albumin/Globulin Ratio (1.60-3.17) Ratio Microbiology - Last 24 Hours (Table) 07/11/23 12:03 Blood Culture - Final Blood
[2023-07-17 16:10] LABS: Glucose,Whole Blood 324 mg/dL (70-110)
[2023-07-17] MEDS: MORPHINE SULFATE 4 MG/ML SYRINGE IV PRN (17:51)
[2023-07-17 20:44] LABS: Glucose,Whole Blood 311 mg/dL (70-110)
[2023-07-17] MEDS: INSULIN DETEMIR (LEVEMIR) 100 UNIT/ML SYR SQ SCH (21:56)
[2023-07-17] MEDS: LATANOPROST 0.005% OPHTH DROPS 2.5 ML BTL BOTH EYES SCH (21:58)
[2023-07-18] MEDS: CEFEPIME 2 GM in SODIUM CHLORIDE 0.9% 100 ML IVPB SCH ×2 (03:50→12:52)
[2023-07-18 05:14] LABS: Glucose,Whole Blood 221 mg/dL (70-110)
[2023-07-18] MEDS: VANCOMYCIN 2,000 MG in SODIUM CHLORIDE 0.9% 500 ML 500 ML IVPB SCH (06:02)
[2023-07-18] MEDS: MORPHINE SULFATE 4 MG/ML SYRINGE IV PRN ×2 (06:03→13:32)
[2023-07-18] MEDS: PANTOPRAZOLE 40 MG TABLET PO SCH (06:03)
[2023-07-18] MEDS: INSULIN ASPART (NovoLOG) 100 UNIT/ML VIAL SQ SCH ×4 (06:23→12:52)
[2023-07-18 07:06] LABS: African American GFR (CKD) >90 (>60 ml/min/1.73 sqM); Non-African American GFR(CKD) >90 (>60 ml/min/1.73 sqM)
[2023-07-18] MEDS: METOPROLOL SUCCINATE (ER) 25 MG TAB.ER.24H PO SCH (08:19)
[2023-07-18] MEDS: CLOPIDOGREL 75 MG TAB PO SCH (08:19)
[2023-07-18] MEDS: ATORVASTATIN 20 MG TAB PO SCH (08:19)
[2023-07-18] MEDS: metroNIDAZOLE-NS PMX 500 MG in SALINE 1 100ML.BAG IVPB SCH (08:19)
[2023-07-18] MEDS: ASPIRIN 81 MG PO SCH (08:19)
[2023-07-18] MEDS: ENOXAPARIN 40 MG/0.4 ML SYRINGE SQ SCH (08:20)
[2023-07-18] MEDS: HYDROPHILIC CREAM 180 GM TUBE TOPICAL SCH (08:20)
[2023-07-18] MEDS ORDERED: IV FLUID CONTINUATION 1,000 ML IV ONE (08:55)
[2023-07-18 11:31] LABS: Glucose,Whole Blood 399 mg/dL (70-110)
--- NOTE | 2023-07-18 12:29 | P.PN ---
Subjective Progress Note Date: 07/17/23 Principal diagnosis: Wounds and positive blood culture Patient is a 68-year-old female with a past medical history significant for Asthma, Cancer, COPD, Diabetes Mellitus, Eye Disorder, Fibromyalgia, GERD/Reflux, Hyperlipidemia, Hypertension, presented to the hospital with weakness and fall patient noticed to have a low-grade fever did have a wound to the perineum bradycardia and left foot with a positive blood culture On today's evaluation that is 07/17/2023, the patient continues to be afebrile the patient is breathing comfortably on 2 L nasal cannula oxygen, the patient denies chest pain, shortness of breath or cough, patient denies abdominal pain, no nausea/vomiting and no diarrhea has been reported, the patient has pain to the left foot Patient did have a white count of 7.74 creatinine 0.70 as of 07/16/2023, local cultures with gram negative x 2 and enterococus Objective - Vital Signs Vital signs: Vital Signs Temp 97.9 F 07/17/23 13:54 Pulse 79 07/17/23 13:54 Resp 20 07/17/23 13:54 BP 143/62 07/17/23 13:54 Pulse Ox 96 07/17/23 13:54 FiO2 40 07/11/23 04:38 Intake & Output 07/16/23 07/17/23 07/17/23 18:59 06:59 18:59 Output Total 500 1700 900 Balance -500 -1700 -900 Output: Urine 500 1700 900 Other: Voiding Method Indwelling Catheter Indwelling Catheter Indwelling Catheter - Exam GENERAL DESCRIPTION: An elderly female lying in bed in no distress RESPIRATORY SYSTEM: Unlabored breathing , decreased breath sounds at bases HEART: S1 S2 regular rate and rhythm , ABDOMEN: Soft , no tenderness EXTREMITIES: Left foot is currently dressed no drainage on the dressing - Labs CBC & Chem 7: 07/16/23 05:26 07/18/23 06:33 Labs: Abnormal Lab Results - Last 24 Hours (Table) 07/16/23 07/17/23 07/17/23 Range/Units 20:55 04:44 05:40 Creatinine 0.48 L (0.52-1.04) mg/dL POC Glucose (mg/dL) 258 H 182 H (70-110) mg/dL 07/17/23 07/17/23 Range/Units 11:17 16:05 Creatinine (0.52-1.04) mg/dL POC Glucose (mg/dL) 337 H 324 H (70-110) mg/dL Microbiology - Last 24 Hours (Table) 07/11/23 12:03 Blood Culture - Final Blood Assessment and Plan (1) Positive blood culture Current Visit: Yes Status: Acute Code(s): R78.81 - BACTEREMIA SNOMED Code(s): 256531819 (2) Wound cellulitis Current Visit: Yes Status: Acute Code(s): L03.90 - CELLULITIS, UNSPECIFIED SNOMED Code(s): 484524652 (3) Foot osteomyelitis, left Current Visit: Yes Status: Acute Code(s): M86.9 - OSTEOMYELITIS, UNSPECIFIED SNOMED Code(s): 5036944675575770 Plan: 1patient with a positive blood culture with gram-positive bacilli is more likely skin contamination, no need for vancomycin blood cultures will be repeated document clearance 2-patient with a multiple wounds to the perianal gluteal area with some slough tissue , continue local wound care per wound care team 3-patient noticed to have a infected callus to the left foot is significant amount of purulent drainage has been cultured which are currently growing gram negative x 2 and enterococus , microlab has been asked to work up these 3 pathogens , CT suggestive of osteomyelitis to the head of the fifth metatarsal 4-patient to continue cefepime, vancomycin and Flagyl while waiting for cultures to be finalized to determine discharge antibiotics , will need a PICC line for outpatient IV antibiotics Dictation was produced using [employer] dictation software. please excuse any grammatical, word or spelling errors. Time with Patient: Less than 30
--- NOTE | 2023-07-18 12:30 | P.PN ---
Subjective Progress Note Date: 07/18/23 Principal diagnosis: Wounds and positive blood culture Patient is a 68-year-old female with a past medical history significant for Asthma, Cancer, COPD, Diabetes Mellitus, Eye Disorder, Fibromyalgia, GERD/Reflux, Hyperlipidemia, Hypertension, presented to the hospital with weakness and fall patient noticed to have a low-grade fever did have a wound to the perineum bradycardia and left foot with a positive blood culture On today's evaluation that is 07/18/2023, the patient remains to be afebrile, the patient is breathing comfortably on room air requiring a 2 L nasal cannula supplemental oxygen however no shortness of breath, the patient denies having any chest pain or cough, patient denies nausea/vomiting /diarrhea and no abdominal pain, the patient denies pain to the left foot Patient did have a white count of 7.74 as of 07/16/2023 and a creatinine of 0. 43, local cultures with gram negative x 2 and enterococus Objective - Vital Signs Vital signs: Vital Signs Temp 97.1 F L 07/18/23 07:29 Pulse 76 07/18/23 07:29 Resp 16 07/18/23 07:29 BP 157/70 07/18/23 07:29 Pulse Ox 97 07/18/23 07:29 FiO2 40 07/11/23 04:38 Intake & Output 07/17/23 07/18/23 07/18/23 18:59 06:59 18:59 Output Total 900 900 Balance -900 -900 Output: Urine 900 900 Other: Voiding Method Indwelling Catheter Indwelling Catheter - Exam GENERAL DESCRIPTION: An elderly female lying in bed in no distress RESPIRATORY SYSTEM: Unlabored breathing , decreased breath sounds at bases HEART: S1 S2 regular rate and rhythm , ABDOMEN: Soft , no tenderness EXTREMITIES: Left foot is currently dressed no drainage on the dressing - Labs CBC & Chem 7: 07/16/23 05:26 07/18/23 06:33 Labs: Abnormal Lab Results - Last 24 Hours (Table) 07/17/23 07/17/23 07/17/23 Range/Units 11:17 16:05 20:36 Creatinine (0.52-1.04) mg/dL POC Glucose (mg/dL) 337 H 324 H 311 H (70-110) mg/dL 07/18/23 07/18/23 Range/Units 05:10 06:33 Creatinine 0.43 L (0.52-1.04) mg/dL POC Glucose (mg/dL) 221 H (70-110) mg/dL Assessment and Plan (1) Positive blood culture Current Visit: Yes Status: Acute Code(s): R78.81 - BACTEREMIA SNOMED Code(s): 672876523 (2) Wound cellulitis Current Visit: Yes Status: Acute Code(s): L03.90 - CELLULITIS, UNSPECIFIED SNOMED Code(s): 336505992 (3) Foot osteomyelitis, left Current Visit: Yes Status: Acute Code(s): M86.9 - OSTEOMYELITIS, UNSPECIFIED SNOMED Code(s): 4872074479376702 Plan: 1patient with a positive blood culture with gram-positive bacilli is more likely skin contamination, no need for vancomycin blood cultures will be repeated document clearance 2-patient with a multiple wounds to the perianal gluteal area with some slough tissue , continue local wound care per wound care team, patient mentions slight worsening and patient may need to be reevaluated by the wound care team 3-patient noticed to have a infected callus to the left foot is significant amount of purulent drainage has been cultured which are currently growing gram negative x 2 and enterococus , microlab has been asked to work up these 3 pathogens , CT suggestive of osteomyelitis to the head of the fifth metatarsal 4-patient to continue cefepime, vancomycin and Flagyl while waiting for cultures to be finalized to determine discharge antibiotics , patient has been has been reluctant for a PICC line and this was explained to the patient in the presence of admitting physician seemed to have a agreed waiting for PICC line placement Dictation was produced using [employer] dictation software. please excuse any grammatical, word or spelling errors. Time with Patient: Less than 30
--- NOTE | 2023-07-18 12:57 | P.PN ---
Subjective Progress Note Date: 07/18/23 Patient is a 68-year-old female coronary artery disease status post stenting, permanent pacemaker, aortic valve replacement, systolic congestive heart failure with ejection fraction 40-45%, HTN, HLD, and COPD who presetned after a fall at home where she laid on the ground for 20 hours. On arrival to the ER she was slightly hypotensive with a blood pressure of 96/60. Laboratory analysis was remarkable for hemoglobin of 11, sodium 132, BUN 18, glucose 312, AST 63, CPK 942. Influenza A/B/RSV/COVID-[address] head showed no acute process with some nonspecific white matter changes likely secondary to chronic small vessel ischemic disease. Lumbar spine CT showed L4 5 grade 1 anterior listhesis of moderate to severe spinal canal stenosis, facet joint arthropathy with bilateral neural foraminal stenosis and moderate spinal canal stenosis at L3/4. 07/12 She continues to decline working with PT due to her sacral and labial wounds. Hopeful plans for SNF. States prior could ambulate with a walker. Repeat BCx negative at 48H. 07/13 Encouraged to work with PT. Seen with Dr. Aggarwal, wound draining purulent discharge from L foot, will obtain CT foot to r/o OM. 07/14 CT foot showing concerns for 5th metatarsal OM. Wound culture pending. Continued on Cefepime and Flagyl. 07/15 Awaiting wound culture results. Plans for PICC and likely SNF on discharge. 07/16 Awaiting wound culture results. Plans for PICC and likely SNF on discharge. 07/17 WCx growing proteus, group D enterococcus, GNB. Infectious disease added Vancomycin to antibiotic regimen. 07/18 Patient was seen and examined. Initially refusing PICC line this morning. After discussing the importance of PICC line for 6 weeks of IV antibiotics with the patient, and Dr. Aggarwal at bedside, she is now agreeable. Plans for [facility]. She will need 6 weeks of Vancomycin, Cefepime and Flagyl. Wound culture sensitivities still pending. Vital signs reviewed General: nontoxic, no distress, appears at stated age Cardiovascular: S1S2 reg, no murmur Lungs: Decreased bs bilateral, no rhonchi, no rales , no accessory muscle use Ext: no gross muscle atrophy, no edema b/l lower extremities, no contractures Neuro: no focal neuro deficits Psych: Awake, oriented 3 appropriate affect Gram-negative bacteremia one of 2 cultures secondary to Left labial and buttock wounds with incontinence L 5th metatarsal OM Metabolic encephalopathy Rhabdo [place] Severe spinal stenosis Hypomagnesemia Coronary artery disease Aortic valve replacement Compensated chronic systolic congestive heart failure DM type II GERD Chronic: Fibromyalgia, GERD, COPD, Hypertension, Dyslipidemia, Sarcoidosis, Hernia, Gout, Chronic debility Based on my assessment of this patient, this patient meets a high complexity level of care. Patient has an acute diagnosis of gram negative bacteremia secondary to labial and buttocks wounds that poses a threat to life or bodily function. Gram-negative bacteremia one of 2 cultures secondary to left labial and buttock wounds with incontinence: Cefepime 2 g IV Q8H (D7) and Flagyl 500 mg IV Q8H (D7). Vancomycin dosed per pharmacy (D2). Continue Castro catheter. Wound care consulted. ID recommends awaiting repeat blood cultures finalizing. L 5th metatarsal OM: Abx as above. Will likely need circuit design engineer antibiotics on discharge. ID on board. Cultures sensitivity pending. Metabolic encephalopathy: Resolved Rhabdo: Monitor renal function. Frequent Falls: PT and OT consulted. Severe spinal stenosis: Patient declining any spinal surgeries at this time. Follow up with Dr. Patel for pain management. Coronary artery disease: Aspirin 81 mg PO QD, Metoprolol 25 mg PO QD, Lipitor 20 mg PO QD. Aortic valve replacement Compensated chronic systolic CHF DM type II: Levemir 45 units QHS. Novolog 15 TID. Continue sliding scale GERD: Protonix 40 mg PO BID. Resolved: Hypomagnesemia I have reviewed the following organizational consultant notes: I have reviewed the results of the following tests: Renal function I have ordered the following tests: Renal function. I have discussed the care of this patient with the following independent historian: Discussed with RN and . I have independently interpreted the following test below: I have discussed the management of this patient with the following physician: Discussed with Dr. Aggarwal at bedside. Vancomycin - nephrotoxic - daily renal function monitoring Objective - Vital Signs Vital signs: Vital Signs Temp 97.1 F L 07/18/23 07:29 Pulse 76 07/18/23 07:29 Resp 16 07/18/23 07:29 BP 157/70 07/18/23 07:29 Pulse Ox 97 07/18/23 07:29 FiO2 40 07/11/23 04:38 Intake & Output 07/17/23 07/18/23 07/18/23 18:59 06:59 18:59 Output Total 900 900 Balance -900 -900 Output: Urine 900 900 Other: Voiding Method Indwelling Catheter Indwelling Catheter Indwelling Catheter - Labs CBC & Chem 7: 07/16/23 05:26 07/18/23 06:33 Labs: Abnormal Lab Results - Last 24 Hours (Table) 07/17/23 07/17/23 07/18/23 Range/Units 16:05 20:36 05:10 Creatinine (0.52-1.04) mg/dL POC Glucose (mg/dL) 324 H 311 H 221 H (70-110) mg/dL 07/18/23 07/18/23 Range/Units 06:33 11:30 Creatinine 0.43 L (0.52-1.04) mg/dL POC Glucose (mg/dL) 399 H (70-110) mg/dL
[2023-07-18] MEDS ORDERED: LIDOCAINE 1% INJ 10MG/ML (20 ML MDV) ONE (13:29)
[2023-07-18] MEDS ORDERED: LIDOCAINE 1% INJ 10MG/ML (20 ML MDV) SQ ONE (13:58)
--- NOTE | 2023-07-18 14:30 | IR ---
PICC LINE PLACEMENT: HISTORY: Infection requiring long-term antibiotic therapy PROCEDURE: Ultrasound and fluoroscopic guidance of PICC line placement. COMPLICATIONS: None ANESTHESIA: 1. 1% Lidocaine locally. FINDINGS/TECHNIQUE: The procedure was explained to the patient. The risks, complications, benefits and alternatives were discussed and any questions were answered. Informed consent was obtained. The patient was placed supine on the fluoroscopic table and prepped and draped in the usual sterile fash ion. Utilizing a 21 gauge needle and sonographic and fluoroscopic guidance, access in the right cep halic vein was achieved and there is placement of a 0.018 guidewire. The vein is patent. A 4-F nguyen th was placed over the guidewire. The guidewire and dilator were removed and a 4-F. PICC line was pl aced through the sheath with the tip at the level of the SVC. The sheath was removed, the catheter w as flushed and sutured into position. The patient was stable throughout the procedure and remained s table upon discharge from the Department of Radiology. The vein puncture was patent under ultrasound. A medina scale image was obtained to document patency of the vein punctured. All elements of the maximal barrier technique were utilized. FLUOROSCOPY TIME: DAP 0.269Gy cm2 IMPRESSION: Successful PICC line placement under ultrasound and fluoroscopic guidance.
[2023-07-18 14:45] VITALS: BP 162/74; PULSE 77; RESP 18; TEMP 98.3
--- NOTE | 2023-07-18 15:13 | P.DS ---
Providers Date of admission: 07/11/23 12:17 Expected date of discharge: 07/18/23 Attending physician: Chiki Tanner MD Consults: 07/10/23 07:37 Consult Physician Routine Consulting Provider: Molly Alcala Consult Reason/Comments: severe spinal stenosis Do you want consulting provider notified?: Yes 07/11/23 11:47 Consult Physician Routine Consulting Provider: Marbin Aggarwal Consult Reason/Comments: bacteremia Do you want consulting provider notified?: Yes Primary care physician: Celia Clifton-Fine Hospital Course: Patient is a 68-year-old female coronary artery disease status post stenting, permanent pacemaker, aortic valve replacement, systolic congestive heart failure with ejection fraction 40-45%, HTN, HLD, and COPD who presetned after a fall at home where she laid on the ground for 20 hours. On arrival to the ER she was slightly hypotensive with a blood pressure of 96/60. Laboratory analysis was remarkable for hemoglobin of 11, sodium 132, BUN 18, glucose 312, AST 63, CPK 942. Influenza A/B/RSV/COVID-[address] head showed no acute process with some nonspecific white matter changes likely secondary to chronic small vessel ischemic disease. Lumbar spine CT showed L4 5 grade 1 anterior listhesis of moderate to severe spinal canal stenosis, facet joint arthropathy with bilateral neural foraminal stenosis and moderate spinal canal stenosis at L3/4. 07/12 She continues to decline working with PT due to her sacral and labial wounds. Hopeful plans for SNF. States prior could ambulate with a walker. Repeat BCx negative at 48H. 07/13 Encouraged to work with PT. Seen with Dr. Aggarwal, wound draining purulent discharge from L foot, will obtain CT foot to r/o OM. 07/14 CT foot showing concerns for 5th metatarsal OM. Wound culture pending. Continued on Cefepime and Flagyl. 07/15 Awaiting wound culture results. Plans for PICC and likely SNF on discharge. 07/16 Awaiting wound culture results. Plans for PICC and likely SNF on discharge . 07/17 WCx growing proteus, group D enterococcus, GNB. Infectious disease added Vancomycin to antibiotic regimen. 07/18 Patient was seen and examined. Initially refusing PICC line this morning. After discussing the importance of PICC line for 6 weeks of IV antibiotics with the patient, and Dr. Aggarwal at bedside, she is now agreeable. Plans for [facility]. She will need 6 weeks of Vancomycin dosed per pharmacy to maintain tough 10-15, Cefepime 2g IV Q8H and Flagyl 500 mg IV Q8H. Wound culture sensitivities are back and discussed with Dr. Aggarwal. Pertinent studies: Foot CT, L spine CT, Brain CT. Pertinent procedures: PICC Vital signs reviewed General: nontoxic, no distress, appears at stated age Cardiovascular: S1S2 reg, no murmur Lungs: Decreased bs bilateral, no rhonchi, no rales , no accessory muscle use Ext: no gross muscle atrophy, no edema b/l lower extremities, no contractures Neuro: no focal neuro deficits Psych: Awake, oriented 3 appropriate affect Discharge Diagnosis: Gram-negative bacteremia one of 2 cultures secondary to Left labial and buttock wounds with incontinence L 5th metatarsal OM Metabolic encephalopathy [place] Severe spinal stenosis Hypomagnesemia Coronary artery disease Aortic valve replacement Compensated chronic systolic congestive heart failure DM type II GERD Chronic: Fibromyalgia, GERD, COPD, Hypertension, Dyslipidemia, Sarcoidosis, Hernia, Gout, Chronic debility This complex discharge took 35 minutes to complete. Patient Condition at Discharge: Stable Plan - Discharge Summary Discharge Rx Participant: No New Discharge Prescriptions: New Cefepime [Maxipime] 2 gm IVPB Q8HR@0400,1200,2000 each Magnesium Hydroxide [Milk of Magnesia] 2,400 mg PO DAILY PRN ml PRN Reason: Constipation Insulin Detemir (Levemir) [Levemir] 45 unit SQ HS each INSULIN ASPART (NovoLOG) [NovoLOG (formulary)] 15 unit SQ AC-TID each Vancomycin 2,000 mg IVPB Q12H each Continue Levocetirizine Dihydrochloride [Xyzal] 5 mg PO HS Latanoprost [Xalatan 0.005%] 1 drop BOTH EYES HS Aspirin [Adult Low Dose Aspirin EC] 81 mg PO DAILY Simvastatin [Zocor] 40 mg PO DAILY Metoprolol Succinate (ER) [Toprol XL] 25 mg PO DAILY Magnesium Oxide [Magox 400] 400 mg PO QID Glimepiride [Amaryl] 2 mg PO AC-BRKFST Pantoprazole [Protonix] 40 mg PO DAILY Bumetanide [BUMEX] 1 mg PO BID diazePAM [Valium] 2 mg PO BID PRN #6 tab PRN Reason: Anxiety Multivitamins, Thera [Multivitamin (formulary)] 1 tab PO DAILY Clopidogrel [Plavix] 75 mg PO DAILY Zinc Oxide 20% Oint 1 applic TOPICAL DAILY HYDROcodone/APAP 10-325MG [Vincent 10-325] 1 tab PO Q6H PRN #12 tab PRN Reason: Pain Discontinued Lansoprazole 30 mg PO BID Nystatin 100,000Unit/gm Cream [Mycostatin Cream] 1 applic TOPICAL BID Mupirocin 2% Oint [Bactroban 2% Oint] 1 applic TOPICAL TID Lidocaine 5% Oint [Xylocaine 5% Oint] 1 applic TOPICAL BID PRN PRN Reason: numbing Insulin Lispro Protamin/Lispro [humaLOG MIX 75-25 Kwikpen] See Protocol SQ AC-TID Dicyclomine HCl 10 mg PO ACHS Triamcinolone 0.1% Cream [Kenalog 0.1% Cream] 1 applicatio TOPICAL BID Dupilumab [Dupixent Pen] 1 dose SQ DIRECTED Discharge Medication List Levocetirizine Dihydrochloride [Xyzal] 5 mg PO HS 05/21/15 [History] Aspirin [Adult Low Dose Aspirin EC] 81 mg PO DAILY 05/09/19 [History] Latanoprost [Xalatan 0.005%] 1 drop BOTH EYES HS 05/09/19 [History] Simvastatin [Zocor] 40 mg PO DAILY 05/09/19 [History] Clopidogrel [Plavix] 75 mg PO DAILY 10/06/22 [History] Magnesium Oxide [Magox 400] 400 mg PO QID 10/06/22 [History] Metoprolol Succinate (ER) [Toprol XL] 25 mg PO DAILY 10/06/22 [History] Multivitamins, Thera [Multivitamin (formulary)] 1 tab PO DAILY 10/06/22 [History] Bumetanide [BUMEX] 1 mg PO BID 07/09/23 [History] Glimepiride [Amaryl] 2 mg PO AC-BRKFST 07/09/23 [History] Pantoprazole [Protonix] 40 mg PO DAILY 07/09/23 [History] Zinc Oxide 20% Oint 1 applic TOPICAL DAILY 07/09/23 [History] Cefepime [Maxipime] 2 gm IVPB Q8HR@0400,1200,2000 each 07/18/23 [Rx] HYDROcodone/APAP 10-325MG [Vincent 10-325] 1 tab PO Q6H PRN #12 tab 07/18/23 [Rx] INSULIN ASPART (NovoLOG) [NovoLOG (formulary)] 15 unit SQ AC-TID each 07/18/23 [Rx] Insulin Detemir (Levemir) [Levemir] 45 unit SQ HS each 07/18/23 [Rx] Magnesium Hydroxide [Milk of Magnesia] 2,400 mg PO DAILY PRN ml 07/18/23 [Rx] Vancomycin 2,000 mg IVPB Q12H each 07/18/23 [Rx] diazePAM [Valium] 2 mg PO BID PRN #6 tab 07/18/23 [Rx] Follow up Appointment(s)/Referral(s): Celia Stahl DO [Primary Care Provider] - 1-2 days Molly Alcala DO [Doctor of Osteopathic Medicine] - As Needed Riley Patel MD [STAFF PHYSICIAN] - 3 Weeks [facility] [NON-STAFF] - 10 Days Activity/Diet/Wound Care/Special Instructions: Antibiotics to continue for 6 weeks: Vancomycin dosed per pharmacy to maintain trough of 10-15. Flagyl 500 mg IV Q8H. Cefepime 2g IV Q8H. Monitor renal function regularly. Follow up with Wound Care center within 10 days of discharge. Follow up with Dr. Patel within 3 weeks of discharge. Follow up with Dr. Alcala within 2 weeks of discharge. Follow up with PCP within 1-2 days of discharge. Discharge Disposition: TRANSFER TO SNF/ECF
[2023-07-18] MEDS: HYDROcodone/APAP 10-325MG 1 EACH TAB PO PRN (16:54)
[2023-07-18] MEDS ORDERED: INSULIN DETEMIR (LEVEMIR) 100 UNIT/ML SYR SQ SCH (21:00)
[2023-07-19] MEDS ORDERED: VANCOMYCIN TROUGH DUE 1 EACH MISC MISCELLANE ONE (05:00)
--- NOTE | 2023-07-20 10:50 | CDI ---
Documentation Clarification Form Date: 07/20/23 From: Cee Caldwell Admit Date: 07/11/2023 12:17:00 PM Patient Name: Roseline Larose Visit Number: [id number] Discharge Date: 07/18/2023 05:04:00 PM ATTENTION: The Clinical Documentation Specialists (CDI) and [facility] Coding Staff appreciate your assistance in clarifying documentation. Please respond to the clarification below the line at the bottom and electronically sign. The CDI & [facility] Coding staff will review the response and follow-up if needed. Please note: Queries are made part of the Legal Health Record. If you have any questions, please contact the author of this message via ITS. Dr. Jeannette Smalls, There is documentation of gram-negative bacteremia in the 07/11 progress note and multiple progress notes thereafter and the discharge summary. Bacteremia is considered a lab finding. Additional clarification regarding bacteremia is requested. Patient history/risk factors: T2DM w osteomyelitis, stage4 left buttock pressure ulcer, HTN w chronic systolic CHF, cellulitis of right lower limb, T2DM w foot ulcer & hyperglycemia Clinical Indicators: T 99.5, P 110/113, R 18/20, BP 96/60, O2 Sat 100/95/89 WBC: 9.7 Left Shift: 8.4 Blood Culture: Gram positive Bacilli Lactic Acid: 1.8 Infectious Disease Consult: Patient with apositive blood culturewith gram- positivebacilliis more likely skin contamination in this patient whodo not have anyfeverelevated white countawait IDsensitivityblood cultures will be repeated document clearance. Antibiotics IV Ceftraxone, IV Vancomycin Please provide additional clarification regarding the etiology/cause and/or clinical significance of the bacteremia: [ ] Bacteremia is related to sepsis, please specify organism [ ] Bacteremia is due to infectious process, please specify: [x ] Bacteremia is not clinically significant [ ] Other, please specify [ ] Unable to determine POLOD
== END 2023-07-18 17:04 | DRG 637 ==
LOC: EC 20:16 → 4SSUR 07-10 00:26 → OBSVTOIN 07-11 12:17 → 4SSUR 07-15 22:06
PROVIDERS: ADMIT Internal Medicine; ATTEND Internal Medicine
PROC: 5A09357 Assistance with Respiratory Ventilation, Less than 24 Consecutive Hours, Continuous Positive Airway Pressure (ICD-10-PCS; 2023-07-10)
PROC: 02HV33Z Insertion of Infusion Device into Superior Vena Cava, Percutaneous Approach (ICD-10-PCS; principal; 2023-07-18 12:00)
DX: E11.69 Type 2 diabetes mellitus with other specified complication (principal); G93.41 Metabolic encephalopathy; L89.324 Pressure ulcer of left buttock, stage 4; I50.22 Chronic systolic (congestive) heart failure; M86.9 Osteomyelitis, unspecified; L03.115 Cellulitis of right lower limb; T79.6XXA Traumatic ischemia of muscle, initial encounter; I11.0 Hypertensive heart disease with heart failure; E11.621 Type 2 diabetes mellitus with foot ulcer; E11.36 Type 2 diabetes mellitus with diabetic cataract; B96.4 Proteus (mirabilis) (morganii) as the cause of diseases classified elsewhere; B95.2 Enterococcus as the cause of diseases classified elsewhere; E11.65 Type 2 diabetes mellitus with hyperglycemia; L97.513 Non-pressure chronic ulcer of other part of right foot with necrosis of muscle; L97.529 Non-pressure chronic ulcer of other part of left foot with unspecified severity; Z79.4 Long term (current) use of insulin; Z11.52 Encounter for screening for COVID-19; Z28.310 Unvaccinated for COVID-19; I95.9 Hypotension, unspecified; M48.062 Spinal stenosis, lumbar region with neurogenic claudication; M43.16 Spondylolisthesis, lumbar region; M47.26 Other spondylosis with radiculopathy, lumbar region; M51.16 Intervertebral disc disorders with radiculopathy, lumbar region; E78.5 Hyperlipidemia, unspecified; E83.42 Hypomagnesemia; K21.9 Gastro-esophageal reflux disease without esophagitis; I25.10 Atherosclerotic heart disease of native coronary artery without angina pectoris; R29.6 Repeated falls; J44.89 Other specified chronic obstructive pulmonary disease; G89.29 Other chronic pain; K59.00 Constipation, unspecified; M79.7 Fibromyalgia; R32 Unspecified urinary incontinence; D86.9 Sarcoidosis, unspecified; B96.89 Other specified bacterial agents as the cause of diseases classified elsewhere; K44.9 Diaphragmatic hernia without obstruction or gangrene; K57.30 Diverticulosis of large intestine without perforation or abscess without bleeding; F43.10 Post-traumatic stress disorder, unspecified; F32.A Depression, unspecified; H26.9 Unspecified cataract; H40.9 Unspecified glaucoma; G47.30 Sleep apnea, unspecified; M10.9 Gout, unspecified; M19.90 Unspecified osteoarthritis, unspecified site; R53.81 Other malaise; Z79.82 Long term (current) use of aspirin; Z79.02 Long term (current) use of antithrombotics/antiplatelets; Z79.84 Long term (current) use of oral hypoglycemic drugs; Z79.899 Other long term (current) drug therapy; Z85.41 Personal history of malignant neoplasm of cervix uteri; Z95.0 Presence of cardiac pacemaker; Z95.5 Presence of coronary angioplasty implant and graft; Z95.2 Presence of prosthetic heart valve; Z96.642 Presence of left artificial hip joint; W19.XXXA Unspecified fall, initial encounter; Z91.81 History of falling; Y92.009 Unspecified place in unspecified non-institutional (private) residence as the place of occurrence of the external cause; Z88.0 Allergy status to penicillin; Z88.5 Allergy status to narcotic agent; Z88.8 Allergy status to other drugs, medicaments and biological substances
CPT/HCPCS: 36415; 36573; 70450; 72131; 80048; 80053; 81003; 82140; 82550; 82565; 83036; 83605; 83735; 84100; 84484; 85025; 85027; 85610; 85652; 85730; 86140; 87040; 87070; 87075; 87077; 87186; 87205; 87636; 93005; 94660; 94760; 96361; 96374; 96375; 99285

== ENCOUNTER → 2023-11-07 | Outpatient (CLI) | payer MEDICARE ==
--- NOTE | 2023-11-07 09:45 | US ---
EXAMINATION TYPE: US abdomen limited DATE OF EXAM: 11/07/2023 COMPARISON: NONE CLINICAL INDICATION: Female, 68 years old with history of K82.8 SPECIFIED DISEASES OF GALLBLADDER; Pa in. Patient was scanned in wheelchair due to unable to get on bed, unable to obtain LLD images TECHNIQUE: Multiple sonographic images of the right upper quadrant are obtained. FINDINGS: EXAM MEASUREMENTS: Liver Length: 20.7 cm Gallbladder Wall: 0.2 cm CBD: 0.7 cm Right Kidney: 12.7 x 4.9 x 5.3 cm Pancreas: Heterogenous. Echogenic. Head and tail not well visualized Liver: Enlarged in size Gallbladder: Sludge seen. Stone visualized = 2.1 cm. Possible polyps, with largest = 2.8 mm. Enla rged in size. No wall thickening. Unable to obtain LLD images. Evidence for sonographic Goodman's sign: neg CBD: wnl Right Kidney: No prominent hydronephrosis or masses seen IMPRESSION: Biliary sludge with nodular thickening possibly relating to small polyps versus adherent gallstone/sl udge. Short-term follow-up in 6 months recommended to ensure stability.
--- NOTE | 2023-11-07 10:43 | CT ---
EXAMINATION TYPE: CT abdomen wo con DATE OF EXAM: 11/07/2023 COMPARISON: None HISTORY: Gallbladder polyp or mass CT DLP: 858 mGycm Examination of the solid and hollow viscera is limited given the lack of contrast. FINDINGS: LUNG BASES: No evidence for nodule. No evidence for infiltrate. LIVER/GB: Small calcified gallstones noted. There is no evidence for wall thickening or pericholecyst ic fluid. Intra and extrahepatic biliary tree is of normal caliber. No space-occupying hepatic lesion . PANCREAS: No pancreatic mass identified. No inflammatory process seen. SPLEEN: No evidence for splenomegaly. No intrasplenic lesions seen. ADRENALS: No adrenal nodules identified. No evidence for thickening. KIDNEYS: No evidence for renal mass. No nephrolithiasis. No hydronephrosis. BOWEL: Appendix has a normal appearance. No evidence of bowel obstruction. No inflammatory process. Lymph nodes: No evidence for adenopathy greater than 1 cm. Abdominal aorta: Atheromatous changes seen. No evidence for aneurysm. Other: No significant abnormality. IMPRESSION: UNCOMPLICATED CHOLELITHIASIS NOTED.
== END | disposition home or self-care (01) ==
LOC: RADUSWWP 08:58
PROVIDERS: ATTEND Internal Medicine Gastroenterology
DX: K80.20 Calculus of gallbladder without cholecystitis without obstruction (principal); K82.8 Other specified diseases of gallbladder
CPT/HCPCS: 74150; 76705

== ENCOUNTER 2023-11-16 06:03 | Day surgery (SDC) | payer MEDICARE ==
[2023-11-16] MEDS: LACTATED RINGERS 1,000 ML IV SCH (06:15)
[2023-11-16 06:42] LABS: Glucose,Whole Blood 245 mg/dL (70-110)
[2023-11-16] MEDS: INSULIN ASPART (NovoLOG) 100 UNIT/ML VIAL SQ ONE (06:49)
[2023-11-16 07:01] VITALS: TEMP 97
[2023-11-16] MEDS ORDERED: LIDOCAINE 2% (PF) 20 MG/ML 5 ML VIAL ONE (07:56)
[2023-11-16] MEDS ORDERED: PROPOFOL 10 MG/ML 20 ML VIAL IV ONE (07:56)
--- NOTE | 2023-11-16 08:09 | P.PCN ---
Date of Procedure: 11/16/23 Procedure(s) Performed: BRIEF HISTORY: Patient is a 68-year-old, pleasant, female scheduled for an upper endoscopy as a part of evaluation of upper abdominal pain and history of GERD. of several years duration. She is presently on lansoprazole 30 mg daily despite which continues to have upper abdominal discomfort on a daily basis. PROCEDURE PERFORMED: Esophagogastroduodenoscopy biopsy . PREOPERATIVE DIAGNOSIS: Upper abdominal pain and long-standing history of GERD IV sedation per anesthesia. PROCEDURE: After informed consent was obtained, the patient was brought into the endoscopy unit. IV sedation was administered by Anesthesia under continuous monitoring. Initially the Olympus GIF-140 video endoscope was inserted into the mouth. Esophagus intubated without any difficulty. It was gradually advanced into the stomach and duodenum and carefully examined. The bulb and the second part of the duodenum appeared normal. The scope at this time was withdrawn to the stomach, adequately insufflated with air, and upon careful examination, mucosa of the antrum and diffuse gastritis and biopsies were done from this area. Mucosa of the , body, cardia and the fundus appeared normal. The scope was then withdrawn into the esophagus. The GE junction was located at 39 cm from the incisors. The, biopsies were done from the distal esophagusThe esophagus appeared normal. There were no erosions or ulcerations seen and the patient tolerated the procedure well. IMPRESSION: 1. Mild antral gastritis 2. No evidence of esophagitis or peptic ulcer disease RECOMMENDATIONS: The findings of this examination were discussed with the paas well as her family. She was advised to continue with lansoprazole 30 mg daily and follow antireflux measures. Follow up in office in 3-4 weeks.
[2023-11-16 08:33] VITALS: PULSE 86; RESP 16
[2023-11-16 08:46] LABS: Glucose,Whole Blood 233 mg/dL (70-110)
[2023-11-16 09:07] VITALS: BP 132/79
== END 2023-11-16 09:34 | disposition home or self-care (01) ==
LOC: ORWHC2ENDO 06:03
PROVIDERS: ATTEND Internal Medicine Gastroenterology
DX: K29.50 Unspecified chronic gastritis without bleeding (principal); K21.9 Gastro-esophageal reflux disease without esophagitis; I25.10 Atherosclerotic heart disease of native coronary artery without angina pectoris; E78.5 Hyperlipidemia, unspecified; I10 Essential (primary) hypertension; J44.89 Other specified chronic obstructive pulmonary disease; E11.9 Type 2 diabetes mellitus without complications; E66.01 Morbid (severe) obesity due to excess calories; G47.33 Obstructive sleep apnea (adult) (pediatric); F41.9 Anxiety disorder, unspecified; F43.10 Post-traumatic stress disorder, unspecified; M19.90 Unspecified osteoarthritis, unspecified site; F32.A Depression, unspecified; Z79.899 Other long term (current) drug therapy; Z95.5 Presence of coronary angioplasty implant and graft; Z68.41 Body mass index [BMI] 40.0-44.9, adult; Z85.41 Personal history of malignant neoplasm of cervix uteri; Z79.02 Long term (current) use of antithrombotics/antiplatelets
CPT/HCPCS: 88305; 43239; J2704; J2001